=== PATIENT | female | born 1955 | race African-American/Black ===

== ENCOUNTER 2017-10-25 23:39 | Inpatient (IN) ==
[2017-10-26 00:29] LABS: Basophils # 0.1 K/mcL (0.0-0.2); Basophils % 1.3 %; Eosinophils # 0.4 K/mcL (0.0-0.6); Eosinophils % 6.3 %; Hematocrit 37.1 % (35.3-44.9); Hemoglobin 11.5 g/dL (11.5-15.4); Immature Granulocytes % 0.3 % (0-4); Lymphocytes # 1.4 K/mcL (0.6-4.6); Lymphocytes % 20.8 %; Mean Corpuscular Hemoglobin 30.6 pg (28.0-33.3); Mean Corpuscular Volume 98.7 fL (83.0-100.0); Mean Platelet Volume 9.7 fL (9.4-12.4); Monocytes # 0.8 K/mcL (0.0-1.3); Neutrophils # 4.2 K/mcL (1.6-8.9); Platelet Count 310 K/mcL (140-400); Red Blood Count 3.76 M/mcL (3.82-4.97); Red Cell Distribution Width 12.3 % (11.5-14.5); Segmented Neutrophils % 60.3 %
[2017-10-26 00:42] LABS: Calcium 10.3 mg/dL (8.6-10.8); Potassium 4.2 mEq/L (3.5-4.5)
--- NOTE | 2017-10-26 01:43 | Emergency Department Note ---
Disposition Clinical Impression: Dermatomyositis Disposition: Admitted As Inpatient Condition: Good Time of Disposition: 05:15 Extremity Problem HPI - General Chief complaint: ED Extremity Problem,Nontraumatic Stated complaint: "Bilat Leg Pain/Toe Numbness" Time Seen by Provider: 10/26/17 01:20 Source: patient, EMS Limitations: no limitations Nursing Notes Reviewed: Yes Vital Signs Reviewed: Yes - History of Present Illness HPI Narrative: Mrs. Boyce, 62-year-old female, presents from home for evaluation of bilateral lower extremity weakness. Onset this evening at 10:30 after she had laid down. Patient ambulated to baseline with a walker but she was unable to do so after awakening. Patient has a history of dermatomyositis diagnosed approximate 6 years with approximately 5 flares since. Patient notes this feels exactly the same as prior flares. One month ago, she finished a long prednisone taper. She follows with Dr. Leon. She has no other complaints or concerns at this time. At baseline, patient ambulance with walker. ROS: Positive: As above Negative: Fever, chills, nausea, vomiting, chest pains, palpitations, numbness or tingling of her genital/perianal region, incontinence of bowel or bladder, dysuria, changes in bowel habits, decreased sensation, pain in her lower extremities, history of trauma to her back or lower extremities. Pain Scale: 7 - Related Data Home Medications Medication Instructions Recorded Confirmed Amitriptyline [Elavil] 25 mg PO HS 08/27/15 09/26/16 Budesonide/Formoterol 80/4.5 2 puff IH BID PRN #0 08/27/15 09/26/16 [Symbicort 80/4.5] LORazepam [Ativan] 2 mg PO Q6H PRN #0 08/27/15 09/26/16 Lisinopril [Zestril] 20 mg PO DAILY #0 08/27/15 09/26/16 Metoprolol [Lopressor] 100 mg PO BID #0 08/27/15 09/26/16 Mupirocin [Bactroban Oint] 1 appl NS TID 08/27/15 09/26/16 NIFEdipine [Nifedipine ER] 90 mg PO BID #0 08/27/15 09/26/16 Topiramate [Topamax] 25 mg PO HS 08/27/15 09/26/16 Sitagliptin Phos/Metformin HCl 1 each PO BID 02/07/16 09/26/16 [Janumet 50-1,000 mg Tablet] Ergocalciferol (VITAMIN D2) 50,000 unit PO QWEEK 08/16/16 09/26/16 [Vitamin D2 (50,000 UNIT)] Acyclovir [Zovirax] 1 appl TP AD 08/17/16 09/26/16 HYDROcodone/Acet 10/325 mg [[place] 1 tab PO Q6HR PRN 08/17/16 09/26/16 10-325 mg] Lidocaine 1 appl TP AD 08/17/16 09/26/16 Pregabalin [Lyrica] 50 mg PO TID 09/26/16 09/26/16 predniSONE [PredniSONE] 10 mg PO DAILY 09/26/16 09/26/16 Previous Rx's Medication Instructions Recorded Doxycycline 100 mg PO BID 7 Days capsule 03/26/17 PredniSONE [Emmy] 5 mg PO DAILY #7 tablet. 07/02/17 Allergies Allergy/AdvReac Type Severity Reaction Status Date / Time No Known Allergies Allergy Verified 10/26/17 00:02 All systems ED: reviewed and negative except as stated. Review of Systems: As Per HPI Past Medical History - Past Medical History Medical history: Reports: arthritis, cardiomyopathy, COPD, diabetes, GERD, hyperlipidemia, hypertension, osteoporosis, peripheral artery disease, pulmonary embolus, other Surgical history: Reports: cholecystectomy, hysterectomy, knee replacement, orthopedic, other (Left hand surgery.), pacemaker/AICD, sinus surgery ( Tonsillectomy adenoidectomy. 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 HEENT: No facial asymmetry. Head is normocephalic and atraumatic. Oral mucosa moist. Trachea midline. Cardiovascular: Heart regular rate and rhythm without clicks, rubs, gallops, or murmurs. No JVD. PMI nondisplaced. Posterior tibial pulses 2/4 and equal. Respiratory: Symmetric chest rise with good respiratory effort. Bilateral breath sounds are clear without wheezing, crackles, or rhonchi. Abdomen: Bowel sounds present normoactive x-4 quadrants. Abdomen is soft, nondistended, and nontender. No organomegaly noted. Musculoskeletal: Strength 4/5 in left lower extremity. Strength 3/5 in right lower extremity. Spontaneously moving upper extremities. Neuro: Sensation light touch intact in bilateral lower extremities. Psych: Patient's affect is appropriate for situation. - General Limitations: no limitations General appearance: alert, in no apparent distress Course Course Narrative: Patient with a history of dermatomyositis presents from home for evaluation of a layer of the same. She has had this previously and this feels identical. She has no other complaints. Physical exam demonstrates lower extremity weakness most prominent in the right lower extremity. At baseline, patient ambulates with a walker however she is unable to do so at this time. She is otherwise comfortable. We will provide an initial 80 mg dose of prednisone. Patient is agreeable to admission for continued evaluation and management. Patient is an elevation in ESR consistent with her history, presentation, and my physical exam. Discussed the patient with the admitting hospitalist, Dr. Murrell, who agrees to accept the patient for continued evaluation and management. Vital Signs Temperature 97.9 F 10/25/17 23:57 Pulse Rate 96 10/25/17 23:57 Respiratory Rate 20 10/25/17 23:57 Blood Pressure 144/85 10/25/17 23:57 O2 Sat by Pulse Oximetry 94 10/25/17 23:57 Temperature 98.7 F 10/26/17 04:13 Pulse Rate 87 10/26/17 04:13 Respiratory Rate 16 10/26/17 04:13 Blood Pressure 152/84 10/26/17 04:13 O2 Sat by Pulse Oximetry 99 10/26/17 04:13 Oxygen Delivery Oxygen Delivery Room Air Extremity Problem, Nontraumati - Lab Data Result diagrams: 10/26/17 00:20 10/26/17 00:20 Lab Results 10/26/17 10/26/17 10/26/17 Range/Units 00:20 00:20 00:20 WBC 6.9 (4.3-11.1) K/mcL RBC 3.76 L (3.82-4.97) M/mcL Hgb 11.5 (11.5-15.4) g/dL Hct 37.1 (35.3-44.9) % MCV 98.7 (83.0-100.0) fL MCH 30.6 (28.0-33.3) pg MCHC 31.0 L (31.6-35.5) g/dL RDW 12.3 (11.5-14.5) % Plt Count 310 (140-400) K/mcL MPV 9.7 (9.4-12.4) fL Immature Gran % 0.3 (0-4) % Seg Neutrophils % 60.3 % Lymphocytes % 20.8 % Monocytes % 11.0 % Eosinophils % 6.3 % Basophils % 1.3 % Neutrophils # 4.2 (1.6-8.9) K/mcL Lymphocytes # 1.4 (0.6-4.6) K/mcL Monocytes # 0.8 (0.0-1.3) K/mcL Eosinophils # 0.4 (0.0-0.6) K/mcL Basophils # 0.1 (0.0-0.2) K/mcL ESR 68 H (0-15) mm/hr Sodium 141 (136-145) mEq/L Potassium 4.2 (3.5-4.5) mEq/L Chloride 111 H (98-109) mEq/L Carbon Dioxide 21 (19-29) mEq/L BUN 34 H (7-20) mg/dL Creatinine 1.19 H (0.57-1.11) mg/dL Est GFR ( Amer) 56 L (> 60) Est GFR (Non-Af Amer) 46 L (> 60) BUN/Creatinine Ratio 29 H (6-26) Glucose 122 H (70-99) mg/dL Calculated Osmolality 301 H (280-300) Calcium 10.3 (8.6-10.8) mg/dL Creatine Kinase 61 (29-168) Units/L Attestation Statement - Attestation Attestation: I, Giacomo Baumann MD, personally evaluated this patient and discussed their management with the resident physician. I reviewed the resident's note and agree with the documented findings, medical decision making, and plan of care. 62-year-old female presents to the emergency department complaining that she awoke at 10 PM with weakness in both legs and was unable to use them. Patient states that she has a history of dermatomyositis and has flareups with similar episodes previously. She denies any fall or injury. She does have some pain in her hip areas. No fever. No other symptoms or complaints. Patient states that she just cannot use her legs and is unable to walk. On examination patient is a well-developed well-nourished female in no acute distress. She is alert and oriented 3. There is no cyanosis or diaphoresis. Breath sounds are clear and equal bilaterally. Heart regular rate and rhythm with a grade 3/6 systolic murmur. Abdomen soft and nontender with normal bowel sounds. Moderate weakness and left lower extremity and marked weakness in the right lower extremity. Labs reviewed. Sedimentation rate 68. Otherwise unremarkable. The hospitalist, Dr. Higgins, was consulted and accepted admission of the patient.
[2017-10-26] MEDS ORDERED: predniSONE 20 MG TABLET PO ONE (02:55)
[2017-10-26] MEDS ORDERED: 0.9 % Sodium Chloride 500 ML IVC ONE (02:56)
[2017-10-26] MEDS ORDERED: Naloxone 0.4 MG/ML INJ IVP PRN (04:01)
[2017-10-26] MEDS ORDERED: Ondansetron 4 MG/2 ML VIAL IVP PRN (04:01)
[2017-10-26] MEDS ORDERED: Acetaminophen 325 MG TABLET PO PRN (04:01)
--- NOTE | 2017-10-26 04:01 | Internal Med History&Physical ---
Date of Encounter: 10/26/17 Time of Encounter: 03:45 Assessment and Plan (1) Dermatomyositis Current visit: Yes Status: Acute Acute flareup of dermatomyositis - causing weakness in both lower extremities Prednisone 80 mg given in ED, IV Solu-Medrol, IV fluids Continue home dose of Lyrica CT head - pending EKG - sinus rhythm with RBBB Troponin - pending ESR - 68 Rheumatology consult - patient follows with Dr. Leon Cardiac telemetry, lives in a.m., monitor closely (2) COPD (chronic obstructive pulmonary disease) Current visit: Yes Status: Chronic COPD, stable - not in exacerbation Continue Symbicort, O2 via NC, DuoNeb breathing treatment PRN Qualifiers: COPD type: unspecified COPD Qualified Code(s): J44.9 - Chronic obstructive pulmonary disease, unspecified (3) Diabetes mellitus Current visit: Yes Status: Chronic Type 2 diabetes mellitus, [id number], hyperglycemia Continue insulin sliding scale, glucose checks Patient is on Sitagliptin/Metformin at home Qualifiers: Diabetes mellitus type: type 2 Diabetes mellitus complication status: with unspecified complications Diabetes mellitus manager long term care insulin use: unspecified prison insulin use status Qualified Code(s): E11.8 - Type 2 diabetes mellitus with unspecified complications (4) Essential hypertension Current visit: Yes Status: Chronic Essential hypertension, controlled, monitor Continue home dose of Nifedipine, Lopressor, Lisinopril (5) Anxiety and depression Current visit: Yes Status: Chronic Stable, continue home dose of Elavil (6) DVT prophylaxis Current visit: Yes Status: Resolved Heparin subcutaneous Internal Medicine - H&P: HPI Chief complaint: Bilateral leg weakness Admitted From: Emergency Dept Plans for Post Hospital Care: Home History of present illness: Ms. Boyce is a 62 year old female with past medical history of dermatomyositis , arthritis, COPD, GERD, diabetes, hyperlipidemia, hypertension, osteoporosis, PE, peripheral artery disease, status post pacemaker/AICD and cardiomyopathy. Patient presents to the ED with complaints of bilateral lower leg weakness and numbness. Examined in the room. Patient is awake and alert. Not in any distress. Able to provide all history. No family members at bedside. Patient states that around 10 PM last night she developed bilateral leg weakness. She states she had difficulty standing up. She normally uses a walker at home. Patient states weakness in right leg is worse than the left side. She states she has intermittent flareups of dermatomyositis, and this feels like another flareup. Patient had been on prednisone for more than one year, and was tapered off recently. Patient denies weakness in upper extremities. Denies dizziness or headache. No blurred vision or loss of consciousness. Denies chest pain or shortness of breath or palpitation. Denies abdominal pain or vomiting or diarrhea or fever. No other associated symptoms. No other acute complaints. Initial workup in the ED reveals elevated ESR. Patient likely has a flareup of dermatomyositis. She will need high-dose steroids at this time. Prednisone has been given in the ED. Patient thinks that her weakness seems to be improving already. Patient may need IV Solu-Medrol as well if symptoms do not improve. Patient has been explained about her condition and plan of care in detail. She understood and agreed. No unanswered questions. CODE STATUS full code. Past Med Surg Social Fam HX - Past Medical History Medical history: arthritis, cardiomyopathy, COPD, diabetes, GERD, hyperlipidemia , hypertension, osteoporosis, peripheral artery disease, pulmonary embolus, other Psychiatric history: anxiety, bipolar, depression, panic disorder, other - Past Surgical History Surgical History: cholecystectomy, hysterectomy, knee replacement, orthopedic, other (Left hand surgery.), pacemaker/AICD, sinus surgery (Tonsillectomy adenoidectomy. Uvula-ectomy.), other (Pericardial window.) - Social History Smoking Status: Never smoker Smokeless Tobacco Status: No Alcohol use: none Drug use: none - Family History Father Living Status: Hx Family Cardiac Disorders: Yes (NH) Hx Family Endocrine Disorder: Yes (DM) Mother Living Status: Still Living Hx Family Endocrine Disorder: Yes (DM) Internal Medicine - H&P: Meds Amitriptyline [Elavil] 25 mg PO HS 08/27/15 [History] Budesonide/Formoterol 80/4.5 [Symbicort 80/4.5] 2 puff IH BID PRN #0 08/27/15 [ History] LORazepam [Ativan] 2 mg PO Q6H PRN #0 08/27/15 [History] Lisinopril [Zestril] 20 mg PO DAILY #0 08/27/15 [History] Metoprolol [Lopressor] 100 mg PO BID #0 08/27/15 [History] Mupirocin [Bactroban Oint] 1 appl NS TID 08/27/15 [History] NIFEdipine [Nifedipine ER] 90 mg PO BID #0 08/27/15 [History] Topiramate [Topamax] 25 mg PO HS 08/27/15 [History] Sitagliptin Phos/Metformin HCl [Janumet 50-1,000 mg Tablet] 1 each PO BID [History] Ergocalciferol (VITAMIN D2) [Vitamin D2 (50,000 UNIT)] 50,000 unit PO QWEEK [History] Acyclovir [Zovirax] 1 appl TP AD 08/17/16 [History] HYDROcodone/Acet 10/325 mg [[place] 10-325 mg] 1 tab PO Q6HR PRN 08/17/16 [History ] Lidocaine 1 appl TP AD 08/17/16 [History] Pregabalin [Lyrica] 50 mg PO TID 09/26/16 [History] predniSONE [PredniSONE] 10 mg PO DAILY 09/26/16 [History] Doxycycline 100 mg PO BID 7 Days capsule 03/26/17 [Rx] PredniSONE [Emmy] 5 mg PO DAILY #7 tablet. 07/02/17 [Rx] 3 Allergy/AdvReac Type Severity Reaction Status Date / Time No Known Allergies Allergy Verified 10/26/17 00:02 All Systems PM: A 10-system review of systems was performed and is negative for pertinent findings except as documented above in the HPI. - Constitutional Constitutional: fatigue, weakness, no fever(s) - EENT Eyes: no blurry vision, no loss of vision, no photophobia - Cardiovascular Cardiovascular ROS IM: no chest pain, no diaphoresis, no dyspnea, no dyspnea on exertion, no edema, no lightheadedness, no orthopnea, no palpitations, no syncope - Respiratory Respiratory: no cough, no dyspnea, no dyspnea on exertion, no wheezing, no chest congestion - Gastrointestinal Gastrointestinal: no abdominal pain, no bloating, no cramping, no diarrhea, no hematochezia, no loose stools, no nausea, no vomiting - Genitourinary Genitourinary: no dysuria - Musculoskeletal Musculoskeletal ROS IM: muscle weakness (Both lower legs), no back pain - Neurological Neurological ROS: abnormal gait (Difficulty ambulating), focal weakness ( Weakness and tingling and numbness over both lower legs, worse on the right side ), numbness, tingling, no abnormal speech, no confusion, no convulsions, no dizziness, no loss of vision - Constitutional Vitals: Temp Pulse Resp BP Pulse Ox 97.9 F 92 16 130/79 98 10/25/17 23:57 10/26/17 02:50 10/26/17 03:25 10/26/17 03:25 10/26/17 02:50 General appearance: Present: cooperative, A&O X 3, pleasant, no acute distress, answers questions appropriately - Head Head exam: Present: atraumatic - Eye Eye exam: Present: EOMI - ENT ENT exam: Present: mucous membranes dry - Respiratory Respiratory exam: Present: CTAB. Absent: rales, respiratory distress, stridor, wheezes, tachypnea - Cardiovascular Cardiovascular exam: Present: RRR, +S1, +S2, systolic murmur - GI/Abdominal GI/Abdominal exam: Present: soft. Absent: distended, firm, guarding, tenderness - Extremities Exam Extremities exam: Present: pedal edema (Bilateral lower leg 1+ pitting edema), radial pulses palpable and symmetrical. Absent: calf tenderness, cyanotic - Neurological Exam Neurological exam: Present: alert, CN II-XII intact, oriented X3. Absent: pronater drift, facial droop, speech deficit Additional comments: Awake and alert and oriented 3. Able to verbalize well and follows commands. Strength in both upper extremity 5/5. Strength in left lower and right lower extremities 3/5. Internal Med - H&P Results - Labs CBC & Chem 7: 10/26/17 00:20 10/26/17 00:20
[2017-10-26] MEDS ORDERED: D5% in Water 1,000 ML IVC PRN (04:08)
[2017-10-26] MEDS ORDERED: *HR* Dextrose 50 % in Water (Syg) 50 ML SYRINGE IVP PRN (04:08)
[2017-10-26] MEDS ORDERED: Dextrose Gel 15 GM PO PRN ×2 (04:08)
[2017-10-26] MEDS: *HR* Heparin 5,000 UNIT/ML VIAL SQ SCH ×2 (05:43→17:26)
[2017-10-26 05:44] LABS: Bilirubin,Urine Negative (Negative); Blood,Urine Negative (Negative); Clarity,Urine Cloudy (Clear); Color,Urine Yellow (Yellow); Glucose,Urine (UA) Normal (Normal); Ketones,Urine Negative (Negative); Leukocyte Esterase,Urine Moderate (Negative); Nitrite,Urine Negative (Negative); PH,Urine 6.5 pH Units (5.0-8.0); Protein,Urine Negative (Neg-Trace); Specific Gravity,Urine 1.015 (1.010-1.025); Urobilinogen,Urine Normal (Normal)
[2017-10-26 05:44] LABS: INR 1.1; Prothrombin Time 12.4 Seconds (9.4-12.1)
[2017-10-26 05:47] LABS: Bacteria,Urine Many per hpf (None-Few); Hyaline Casts,Urine None Seen per lpf (None-Few); Squamous Epithelial Cell,Urine Many per lpf (None-Few)
[2017-10-26] MEDS ORDERED: Ipratropium/Albuterol Neb 3 ML IH PRN (05:49)
[2017-10-26 05:57] LABS: Chol/HDL Ratio 6.9 (0-4.9); Magnesium 1.7 mg/dL (1.6-2.6)
[2017-10-26 05:58] LABS: Hemoglobin A1C 5.5 %
[2017-10-26] MEDS: Lidocaine OINT 35.44 GM TUBE TP SCH (06:25)
[2017-10-26] MEDS ORDERED: Aspirin 81 MG TAB.CHEW PO SCH (09:00)
[2017-10-26] MEDS: NIFEdipine XL (24 HR) 30 MG TAB.ER.24 PO SCH ×2 (09:46→23:43)
[2017-10-26] MEDS: Lisinopril 20 MG TABLET PO SCH (09:46)
[2017-10-26] MEDS: Metoprolol 100 MG TABLET PO SCH ×2 (09:46→23:43)
[2017-10-26] MEDS: Insulin LISPRO 300 UNITS/3 ML VIAL SQ SCH ×4 (09:46→23:44)
[2017-10-26] MEDS: Pregabalin 50 MG CAPSULE PO SCH ×3 (09:46→23:42)
[2017-10-26] MEDS: 0.9 % Sodium Chloride 1,000 ML IVC SCH (09:47)
[2017-10-26] MEDS: Budesonide/Formoterol 80/4.5 MDI IH SCH ×2 (10:56→20:24)
[2017-10-26] MEDS: *HR* Morphine 2 MG/ML SYRINGE IVP PRN (17:31)
--- NOTE | 2017-10-26 19:38 | Internal Med Progress Note ---
Date of Encounter: 10/26/17 Time of Encounter: 19:00 - Assessment and plan (1) Lower extremity weakness Current Visit: Yes Status: Acute Qualifiers: Laterality: bilateral Qualified Code(s): R29.898 - Other symptoms and signs involving the musculoskeletal system Code(s): R29.898 - Other symptoms and signs involving the musculoskeletal system SNOMED Code(s): 831120117 (2) Dermatomyositis Current Visit: Yes Status: Acute Code(s): M33.90 - Dermatopolymyositis, unspecified, organ involvement unspecified SNOMED Code(s): 448396024 (3) Diabetes mellitus Current Visit: Yes Status: Chronic Qualifiers: Diabetes mellitus type: type 2 Diabetes mellitus complication status: with unspecified complications Diabetes mellitus custodial insulin use: unspecified custodial insulin use status Qualified Code(s): E11.8 - Type 2 diabetes mellitus with unspecified complications Code(s): E11.9 - Type 2 diabetes mellitus without complications SNOMED Code(s) : 92430767 (4) Essential hypertension Current Visit: Yes Status: Chronic Code(s): I10 - Essential (primary) hypertension SNOMED Code(s): 84606190 - Time Spent With Patient Case Discussed with Dr Amaya as will as Dr Tavera.Dr Tavera recommended to add another dose Solumedrol , Will check X ray [place] spine , increase insulin sliding scale , PT/OT , recheck CK, ESR at AM , may consider MRI with contrast brain and [place] spine . neurology recommended to start steroids for now and then he will come tomorrow and evaluate, based on his evaluation he will order further imaging study.with her significant risk factors will check carotid Doppler, add aspirin 325, may consider MRI brain next morning 25 - 35 minutes - Subjective Interval history: patient has some improvement of her extremities compared to yesterday. No back pain and no headache no visual changes - Constitutional Vitals: Temp Pulse Resp BP Pulse Ox 98.8 F 89 18 147/87 98 10/26/17 19:08 10/26/17 19:08 10/26/17 19:08 10/26/17 19:08 10/26/17 19:08 General appearance: Present: cooperative, A&O X 3, pleasant, no acute distress, answers questions appropriately - Head Head exam: Present: atraumatic, normocephalic - Neck Neck exam general surgery: Present: supple, trachea midline. Absent: lymphadenopathy - Respiratory Respiratory exam: Present: CTAB. Absent: accessory muscle use, rales, rhonchi, wheezes - Cardiovascular Cardiovascular exam: Present: RRR, +S1, +S2. Absent: diastolic murmur, gallop, rubs, systolic murmur - GI/Abdominal GI/Abdominal exam: Present: normal bowel sounds, soft, no peritoneal signs. Absent: distended, tenderness - Extremities Exam Extremities exam: Present: warm, radial pulses palpable and symmetrical. Absent : calf tenderness, cyanotic, pedal edema - Neurological Exam Neurological exam: Present: alert, CN II-XII intact. 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 on the solar power installer he stated herof 5 lower extremities Internal Medicine: Result - Labs CBC & Chem 7: 10/26/17 00:20 10/26/17 00:20 Labs: Cardiac Enzymes 10/26/17 10/26/17 10/26/17 Range/Units 05:31 11:51 17:13 Troponin I 0.01 0.00 0.00 (0-0.03) ng/mL Urine 10/26/17 Range/Units 05:20 Urine Color Yellow (Yellow) Urine Clarity Cloudy A (Clear) Urine pH 6.5 (5.0-8.0) pH Units Ur Specific [place] 1.015 (1.010-1.025) Urine Protein Negative (Neg-Trace) mg/dL Urine Glucose (UA) Normal (Normal) mg/dL - ABG Interpretation ABG results: PT/INR, D-dimer PT 12.4 Seconds (9.4-12.1) H 10/26/17 05:31 - Impressions Impressions Head CT 10/26/17 05:23 IMPRESSION: Similar mild chronic ischemic changes. No definite CT evidence for acute intracranial abnormality. Given patient's clinical history, if there remains concern for acute stroke, MRI is suggested for further evaluation due to its increased sensitivity for acute stroke. D/ / Kenyon Earl / Kenyon Earl Interpreting Provider: Kenyon Earl Echocardiogram 10/26/17 05:41 Impressions: Technically sub-optimal due to body habitus. Normal sinus rhythm. LVEF 65%. Mild aortic stenosis. Trace mitral regurgitation. Trace tricuspid regurgitation. . Left Ventricular Wall Motion: Rest Echo Findings All wall segments showed normal motion. Findings: Study Quality * Technically sub-optimal due to body habitus. ECG Findings * Normal sinus rhythm. Left Ventricle * LVEF 65%. * Mild concentric left ventricular hypertrophy. * There is no LV thrombus. Right Ventricle * Normal right ventricular structure and function. Left Atrium * Normal left atrial size. Right Atrium * Normal right atrial size. Interatrial Septum * No evidence of PFO by color Doppler. Aortic Valve * Trileaflet aortic valve. * Mild aortic stenosis. * Mildly sclerotic aortic valve leaflets. * Mildly thickened aortic valve leaflets. Mitral Valve * Normal mitral valve structure and function. * Mildly calcified mitral valve leaflets. * Trace mitral regurgitation. * Leaflets are restricted. Tricuspid Valve * Normal tricuspid valve structure and function. * Trace tricuspid regurgitation. Pulmonic Valve * Pulmonic valve not well visualized. Aorta * Normally sized aortic root. Pericardium * The pericardium appears normal. Consult Discharge Plan - Plan Referrals: Gaurav Thomas MD [Primary Care Provider] -
[2017-10-26] MEDS ORDERED: Insulin LISPRO 300 UNITS/3 ML VIAL SQ SCH (21:00)
[2017-10-26] MEDS ORDERED: *HR* LORazepam 1 MG TABLET PO ONE (22:41)
[2017-10-26] MEDS: Insulin DETEMIR 100 UNIT/ML X5UNITS SQ SCH (23:41)
[2017-10-27] MEDS: *HR* Morphine 2 MG/ML SYRINGE IVP PRN (00:25)
[2017-10-27] MEDS: Topiramate 25 MG TABLET PO SCH ×2 (00:26→20:52)
[2017-10-27] MEDS: Insulin LISPRO 300 UNITS/3 ML VIAL SQ SCH ×6 (00:38→22:42)
[2017-10-27] MEDS: 0.9 % Sodium Chloride 1,000 ML IVC SCH (00:44)
[2017-10-27 05:44] LABS: Basophils % 0.1 %; Hematocrit 39.9 % (35.3-44.9); Hemoglobin 12.7 g/dL (11.5-15.4); Immature Granulocytes % 0.4 % (0-4); Lymphocytes # 0.5 K/mcL (0.6-4.6); Lymphocytes % 6.5 %; Mean Corpuscular HGB Conc 31.8 g/dL (31.6-35.5); Mean Corpuscular Hemoglobin 30.2 pg (28.0-33.3); Monocytes # 0.1 K/mcL (0.0-1.3); Monocytes % 1.5 %; Neutrophils # 7.2 K/mcL (1.6-8.9); Platelet Count 314 K/mcL (140-400); Red Cell Distribution Width 11.9 % (11.5-14.5); Segmented Neutrophils % 91.5 %
[2017-10-27] MEDS: *HR* Heparin 5,000 UNIT/ML VIAL SQ SCH ×2 (05:45→16:27)
[2017-10-27] MEDS: Lidocaine OINT 35.44 GM TUBE TP SCH (05:45)
[2017-10-27 06:02] LABS: BUN/Creatinine Ratio 29 (6-26); Blood Urea Nitrogen 27 mg/dL (7-20); Calcium 10.1 mg/dL (8.6-10.8); Carbon Dioxide 21 mEq/L (19-29); Chloride 109 mEq/L (98-109); Glucose 234 mg/dL (70-99); Osmolality,Calculated 301 (280-300); Sodium 139 mEq/L (136-145); eGFR For African Americans > 60 (> 60); eGFR For Non-African Americans > 60 (> 60)
[2017-10-27 06:05] LABS: Potassium 4.3 mEq/L (3.5-4.5)
[2017-10-27] MEDS: Budesonide/Formoterol 80/4.5 MDI IH SCH ×2 (08:12→22:10)
--- NOTE | 2017-10-27 08:30 | Rheumatology Consult Note ---
<Toy Breen - Last Filed: 10/27/17 09:46> Date of Encounter: 10/27/17 Time of Encounter: 08:28 Rheumatology Assess and Plan (1) Lower extremity weakness Current Visit: Yes Status: Acute Hx of DM, Jo1 positive, CK nl, ESR elevated 68. Seems to have returned to baseline. Sxs Unlikely to be secondary to infectious process or spinal cord compression since symptoms have resolved. Would not expect true DM flair to have resolved so quickly from steroids. TIA still on the differential. Neurology and PT/OT to evaluate. Expect a large component of her symptoms to be due to deconditioning as patient does not ambulate much at home. Would likely benefit from PT/OT. Qualifiers: Laterality: bilateral Qualified Code(s): R29.898 - Other symptoms and signs involving the musculoskeletal system (2) Antisynthetase syndrome Current Visit: Yes Status: Acute Hx of DM c ILD, Raynauds, + Jo1 ab. overall well controlled on current regimen. no need for further steroids at this time. Continue home dose of cellcept 2.5g (1.5g in the AM, 1g in the PM) ESR was elevated at 68. However question of if this is related to her poor dentition and untreated sleep apnea rather than a sign of DM flair. Rheumatology HPI Consult date: 10/26/17 Requesting physician: Mark Schuler Consult reason: Dermatomyositis management Chief complaint: BLE weakness History of present illness: Ms. Boyce is a 62 year old female c PMhx of Dermatomyositis reported to the ED c/o increased BLE weakness. At baseline patient requires a walker for ambulation. Patient reports taking a nap and waking up at 10pm. Upon waking she reports she could not move her legs the way she normally can. Patient denies pain in her legs at that time. Patient reports she has had pain in her low back and R hip over the last several months, but had no new onset of pain with this onset of weakness. Patient reports last flair was one year ago. Patient denies recent Fever, chills, cough/cold symptoms, dysphagia, N/V, abd pn, Chest pain, SOB, palpitations, numbness/tingling, bowel or bladder incontinence, recent trauma. Per [facility] records patient is on Mycophenolate Mofetil 2.5 grams a day. Patient completed prednisone taper in August of this year. Pt currently not on cellcept here in the hospital. patient reports taking her medication at home as prescribed. Patient was given 80mg Prednisone in the ED and 2 doses of 50mg Solumedrol since admission. CT head showed "similar mild chronic ischemic changes. No definite CT evidence for acute intracranial abnormality." Pt's ESR was elevated to 68 on admission. Neurology consult pending. Past Med Surg Social Fam HX - Past Medical History Medical history: arthritis, cardiomyopathy, COPD, diabetes, GERD, hyperlipidemia , hypertension, osteoporosis, peripheral artery disease, pulmonary embolus, other Psychiatric history: anxiety, bipolar, depression, panic disorder, other - Past Surgical History Surgical History: cholecystectomy, hysterectomy, knee replacement, orthopedic, other (Left hand surgery.), pacemaker/AICD, sinus surgery (Tonsillectomy adenoidectomy. Uvula-ectomy.), other (Pericardial window.) - Social History Smoking Status: Never smoker Smokeless Tobacco Status: No Alcohol use: none Drug use: none - Family History Father Living Status: Hx Family Cardiac Disorders: Yes ([place]) Hx Family Endocrine Disorder: Yes ([place]) Mother Living Status: Still Living Hx Family Endocrine Disorder: Yes (DM) Medications and Allergies Amitriptyline [Elavil] 25 mg PO HS 08/27/15 [History] Budesonide/Formoterol 80/4.5 [Symbicort 80/4.5] 2 puff IH BID PRN #0 08/27/15 [ History] LORazepam [Ativan] 2 mg PO Q6H PRN #0 08/27/15 [History] Lisinopril [Zestril] 20 mg PO DAILY #0 08/27/15 [History] Metoprolol [Lopressor] 100 mg PO BID #0 08/27/15 [History] Mupirocin [Bactroban Oint] 1 appl NS MOWEFR 08/27/15 [History] NIFEdipine [Nifedipine ER] 90 mg PO BID #0 08/27/15 [History] Topiramate [Topamax] 25 mg PO HS 08/27/15 [History] Sitagliptin Phos/Metformin HCl [Janumet 50-1,000 mg Tablet] 1 tab PO BID PRN 08/16 [History] Ergocalciferol (VITAMIN D2) [Vitamin D2 (50,000 UNIT)] 50,000 unit PO QWEEK [History] Acyclovir [Zovirax] 1 appl TP AD 08/17/16 [History] HYDROcodone/Acet 10/325 mg [[place] 10-325 mg] 1 tab PO Q6HR PRN 08/17/16 [History ] Lidocaine 1 appl TP AD 08/17/16 [History] Pregabalin [Lyrica] 50 mg PO TID 09/26/16 [History] PredniSONE [Emmy] 5 mg PO DAILY #7 tablet. 07/02/17 [Rx] Albuterol Sulfate [Albuterol Inhaler] 1 - 2 puff IH Q6H PRN 10/26/17 [History] Esomeprazole Magnesium [Nexium] 40 mg PO DAILY 10/26/17 [History] Glimepiride [Amaryl] 4 mg PO DAILY 10/26/17 [History] 3 Allergy/AdvReac Type Severity Reaction Status Date / Time No Known Allergies Allergy Verified 10/26/17 00:02 All Systems Review: A 10-system review of systems was performed and is negative for pertinent findings except as documented above in the HPI. Rheumatology Exam Vital Signs, Last 4 Hours Temp Pulse Resp BP Pulse Ox 10/27/17 06:49 98.3 F 85 18 155/87 97 10/27/17 04:33 98.3 F 86 16 146/81 98 Exam: General: Pleasant, AxO x3, in NAD Eyes: PERRL, Sclera nonicteric HENT: NC/AT, MMM, no ulcerations noticed in antony or naso phyarynx, poor dentition. Heme/Lymph: No cervical lymphadenopathy noted, no bruising or peticiahe. Cardiac: 3/6 Systolic murmur, RRR, No edema. Lungs: CTA B/L, normal respiratory effort Abdomen: SNT, +BS, no hepatosplenomegally Skin: Warm and Dry, no rash/skin findings Neuro: CN II-XII intact and symmetric, Strength 4+/5 in Deltoids, 5/5 in rest of upper extremities. Strength 4/5 BLE through out. Reflexes symmetric through out 2+ BR, 1+ Patellar, 2+ Achilles. Musculoskeletal: Reduced range of motion in b/l hips, muscles nontender. Rheumatology Results 10/27/17 05:29 10/27/17 05:29 All other labs normal. Consult Discharge Plan - Plan Referrals: Gaurav Thomas MD [Primary Care Provider] - <TiffanieLuke myers - Last Filed: 10/27/17 11:34> Date of Encounter: 10/27/17 Rheumatology HPI History of present illness: Ms. Boyce is a 62 year old female All Systems Review: A 10-system review of systems was performed and is negative for pertinent findings except as documented above in the HPI. Rheumatology Exam Vital Signs, Last 4 Hours Temp Pulse Resp BP Pulse Ox 10/27/17 10:57 98.3 F 86 18 148/85 93 10/27/17 08:12 20 98 Rheumatology Results 10/27/17 05:29 10/27/17 05:29 All other labs normal. - Attending Attestation I examined this patient and my medical decision making was reviewed with the resident physician. I agree with the documented findings, disposition and treatment as described with these exceptions. 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 Patient reports being in her normal state of health until waking up from a nap with sudden weakness in her legs. She went to the ED, was given corticosteroids and reports that over time has symptomatically came back to normal. On exam, has a systolic murmur. No cutaneous rash. No synovitis noted. Poor dentition. Muscle strength in shoulder girdle ~4/5, hip flexors ~4/5. She is able to resist strength and gravity. She does have some atrophy noted of her muscles. CK normal, ESR elevated. Overall, Katelyn looks to be about back to her normal state of health as I have seen her. She has had longstanding inflammatory myositis but clinically has improved in the last year but she is markedly deconditioned and I suspect that is a large component of her symptoms. No signs on history that there is a contributory infection now. I am not certain what brought about her sudden change in exam yesterday but it did not necessarily sound clinically like it was related to the inflammatory myositis. No problems swallowing, new or worsening shortness of breath. Agree with PT/OT porsha; she would really benefit from an at home exercise program to get her strength up. Would hold off on any additional steroids and continue mycophenolate mofetil 2.5 grams daily. Will follow-up with her in clinic.
--- NOTE | 2017-10-27 09:05 | Internal Med Progress Note ---
Date of Encounter: 10/27/17 Time of Encounter: 09:02 - Assessment and plan (1) Lower extremity weakness Current Visit: Yes Status: Acute Qualifiers: Laterality: bilateral Qualified Code(s): R29.898 - Other symptoms and signs involving the musculoskeletal system Code(s): R29.898 - Other symptoms and signs involving the musculoskeletal system SNOMED Code(s): 508497213 (2) Dermatomyositis Current Visit: Yes Status: Acute Code(s): M33.90 - Dermatopolymyositis, unspecified, organ involvement unspecified SNOMED Code(s): 750579303 (3) Diabetes mellitus Current Visit: Yes Status: Chronic Qualifiers: Diabetes mellitus type: type 2 Diabetes mellitus complication status: with unspecified complications Diabetes mellitus penitentiary insulin use: unspecified penitentiary insulin use status Qualified Code(s): E11.8 - Type 2 diabetes mellitus with unspecified complications Code(s): E11.9 - Type 2 diabetes mellitus without complications SNOMED Code(s) : 77754667 (4) Essential hypertension Current Visit: Yes Status: Chronic Code(s): I10 - Essential (primary) hypertension SNOMED Code(s): 22030711 - Time Spent With Patient Discussed with Dr. Sinai Mccoy, he stated based on Dr. Leon recommendation no need for more steroids for now, awaiting Neurology input. Close monitoring of patient condition. Physical therapy and occupational therapy to assess gait and home safety. May consider home health care on discharge. Up with assistant tennis professional as directed 25 - 35 minutes - Subjective Interval history: patient has marked improvement compared to yesterday. Patient stated now she can move her lower extremities, can sit at the edge of her bed. She feels she is very close to her baseline, patient was able to stand by herself was assistant tennis professional. Patient was able to sit on chair. - Constitutional Vitals: Temp Pulse Resp BP Pulse Ox 98.3 F 85 20 155/87 98 10/27/17 06:49 10/27/17 06:49 10/27/17 08:12 10/27/17 06:49 10/27/17 08:12 General appearance: Present: cooperative, pleasant, no acute distress, answers questions appropriately - Head Head exam: Present: atraumatic, normocephalic - Neck Neck exam general surgery: Present: supple, trachea midline. Absent: lymphadenopathy - Respiratory Respiratory exam: Present: decreased breath sounds. Absent: accessory muscle use, rales, rhonchi, wheezes - Cardiovascular Cardiovascular exam: Present: RRR, +S1, +S2. Absent: diastolic murmur, gallop, rubs, systolic murmur - GI/Abdominal GI/Abdominal exam: Present: normal bowel sounds, soft, no peritoneal signs. Absent: distended, tenderness - Neurological Exam Neurological exam: Present: CN II-XII intact, oriented X3. Absent: pronater drift, facial droop, speech deficit Additional comments: Marketed improvement of her weakness bilateral lower extremities now up to see out 02/02. Patient able to stand with Asst. Internal Medicine: Result - Labs CBC & Chem 7: 10/27/17 05:29 10/27/17 05:29 Labs: Short CBC 10/27/17 Range/Units 05:29 WBC 7.9 (4.3-11.1) K/mcL Hgb 12.7 (11.5-15.4) g/dL Hct 39.9 (35.3-44.9) % Plt Count 314 (140-400) K/mcL Neutrophils # 7.2 (1.6-8.9) K/mcL BMP 10/27/17 05:29 Sodium 139 Potassium 4.3 Chloride 109 Carbon Dioxide 21 BUN 27 H Creatinine 0.92 Glucose 234 H Calcium 10.1 Cardiac Enzymes 10/26/17 10/26/17 Range/Units 11:51 17:13 Troponin I 0.00 0.00 (0-0.03) ng/mL - ABG Interpretation ABG results: PT/INR, D-dimer PT 12.4 Seconds (9.4-12.1) H 10/26/17 05:31 - Impressions Impressions Echocardiogram 10/26/17 05:41 Impressions: Technically sub-optimal due to body habitus. Normal sinus rhythm. LVEF 65%. Mild aortic stenosis. Trace mitral regurgitation. Trace tricuspid regurgitation. . Left Ventricular Wall Motion: Rest Echo Findings All wall segments showed normal motion. Findings: Study Quality * Technically sub-optimal due to body habitus. ECG Findings * Normal sinus rhythm. Left Ventricle * LVEF 65%. * Mild concentric left ventricular hypertrophy. * There is no LV thrombus. Right Ventricle * Normal right ventricular structure and function. Left Atrium * Normal left atrial size. Right Atrium * Normal right atrial size. Interatrial Septum * No evidence of PFO by color Doppler. Aortic Valve * Trileaflet aortic valve. * Mild aortic stenosis. * Mildly sclerotic aortic valve leaflets. * Mildly thickened aortic valve leaflets. Mitral Valve * Normal mitral valve structure and function. * Mildly calcified mitral valve leaflets. * Trace mitral regurgitation. * Leaflets are restricted. Tricuspid Valve * Normal tricuspid valve structure and function. * Trace tricuspid regurgitation. Pulmonic Valve * Pulmonic valve not well visualized. Aorta * Normally sized aortic root. Pericardium * The pericardium appears normal. Consult Discharge Plan - Plan Referrals: Gaurav Thomas MD [Primary Care Provider] -
[2017-10-27] MEDS: Aspirin 81 MG TAB.CHEW PO SCH (10:19)
[2017-10-27] MEDS: NIFEdipine XL (24 HR) 30 MG TAB.ER.24 PO SCH ×2 (10:20→20:51)
[2017-10-27] MEDS: Metoprolol 100 MG TABLET PO SCH ×2 (10:20→20:51)
[2017-10-27] MEDS: Insulin DETEMIR 100 UNIT/ML X5UNITS SQ SCH ×2 (10:20→20:52)
[2017-10-27] MEDS: Pregabalin 50 MG CAPSULE PO SCH ×3 (10:20→20:52)
[2017-10-27] MEDS: Lisinopril 20 MG TABLET PO SCH (10:21)
--- NOTE | 2017-10-27 10:57 | Electrocardiograph Report ---
[address] [place], [place] [address] Test Date: 2017-10-26 Pat Name: Katelyn Boyce Department: 114 Room: [facility] Gender: F Roll Repairer: [id number] : 1955 Requested By: Mark Schuler Order Number: [id number] Reading MD: Kenny Davis MD Measurements Intervals G[place]ney Rate: 93 P: 61 NM: 247 QRS: -68 QRSD: 119 T: 14 QT: 383 QTc: 433 Interpretive Statements SINUS RHYTHM WITH FIRST DEGREE AV BLOCK INCOMPLETE RIGHT BUNDLE BRANCH BLOCK INFERIOR MYOCARDIAL INFARCTION, OF INDETERMINATE AGE ANTEROLATERAL MYOCARDIAL INFARCTION, OF INDETERMINATE AGE Electronically Signed On 10-27-2017 10:56:19 EST by Kenny Davis MD
--- NOTE | 2017-10-27 18:13 | Neurology - Consult Note ---
Date of Encounter: 10/27/17 Time of Encounter: 18:09 Assessment and Plan (1) Dermatomyositis Current Visit: Yes Status: Acute I agree that this is likely a flareup of her dermatomyositis. I do not believe that any other condition would have been so responsive to corticosteroid therapy in such a short period of time. She is currently on CellCept and is being managed by Dr. Leon. I will defer further management to his discretion. I will reevaluate her at your request. History of Present Illness HPI: Ms. Boyce is a 62 year old female with a history of dermatomyositis is being seen for neurological consultation secondary to an acute flareup. She was diagnosed with dermatomyositis about 5 years or so ago at the [facility]. She previously been on steroids for treatment of this and was tapered off her steroids and started on CellCept 1. 5 in the morning and 1 mg in the evening. She states that she was tapered off the steroids about 2 or 3 months ago. She has been increasingly weak over the last day or 2. She was given prednisone in the ED and Solu-Medrol since admission. Her sedimentation rate was elevated at about 62 and the deep. She is already improved since getting the steroid medications. She denies diplopia denies shortness of breath, denies any other bulbar problems. She does have diabetic polyneuropathy as well. Past Med Surg Social Fam HX - Past Medical History Medical history: arthritis, cardiomyopathy, COPD, diabetes, GERD, hyperlipidemia , hypertension, osteoporosis, peripheral artery disease, pulmonary embolus, other Psychiatric history: anxiety, bipolar, depression, panic disorder, other - Past Surgical History Surgical History: cholecystectomy, hysterectomy, knee replacement, orthopedic, other (Left hand surgery.), pacemaker/AICD, sinus surgery (Tonsillectomy adenoidectomy. Uvula-ectomy.), other (Pericardial window.) - Social History Smoking Status: Never smoker Smokeless Tobacco Status: No Alcohol use: none Drug use: none - Family History Father Living Status: Hx Family Cardiac Disorders: Yes ([place]) Hx Family Endocrine Disorder: Yes ([place]) Mother Living Status: Still Living Hx Family Endocrine Disorder: Yes ([place]) Medications and Allergies Amitriptyline [Elavil] 25 mg PO HS 08/27/15 [History] Budesonide/Formoterol 80/4.5 [Symbicort 80/4.5] 2 puff IH BID PRN #0 08/27/15 [ History] LORazepam [Ativan] 2 mg PO Q6H PRN #0 08/27/15 [History] Lisinopril [Zestril] 20 mg PO DAILY #0 08/27/15 [History] Metoprolol [Lopressor] 100 mg PO BID #0 08/27/15 [History] Mupirocin [Bactroban Oint] 1 appl NS MOWEFR 08/27/15 [History] NIFEdipine [Nifedipine ER] 90 mg PO BID #0 08/27/15 [History] Topiramate [Topamax] 25 mg PO HS 08/27/15 [History] Sitagliptin Phos/Metformin HCl [Janumet 50-1,000 mg Tablet] 1 tab PO BID PRN 08/16 [History] Ergocalciferol (VITAMIN D2) [Vitamin D2 (50,000 UNIT)] 50,000 unit PO QWEEK [History] Acyclovir [Zovirax] 1 appl TP AD 08/17/16 [History] HYDROcodone/Acet 10/325 mg [[place] 10-325 mg] 1 tab PO Q6HR PRN 08/17/16 [History ] Lidocaine 1 appl TP AD 08/17/16 [History] Pregabalin [Lyrica] 50 mg PO TID 09/26/16 [History] PredniSONE [Emmy] 5 mg PO DAILY #7 tablet. 07/02/17 [Rx] Albuterol Sulfate [Albuterol Inhaler] 1 - 2 puff IH Q6H PRN 10/26/17 [History] Esomeprazole Magnesium [Nexium] 40 mg PO DAILY 10/26/17 [History] Glimepiride [Amaryl] 4 mg PO DAILY 10/26/17 [History] 3 Allergy/AdvReac Type Severity Reaction Status Date / Time No Known Allergies Allergy Verified 10/26/17 00:02 All Systems: A 10-system review of systems was performed and is negative for pertinent findings except as documented above in the HPI. Review of Systems: 10 point review of systems is consistent with history of present illness and otherwise negative. Physical Examination - Vital Signs Vital Signs: Initial Vital Signs Temp Pulse Resp BP Pulse Ox 97.9 F 96 20 144/85 94 10/25/17 23:57 10/25/17 23:57 10/25/17 23:57 10/25/17 23:57 10/25/17 23:57 - Neurologic Detailed motor examination: full strength in all major muscle groups Motor examination - right side: 2/5: tibialis Anterior, toe extension (EHL), plantarflexion, 3/5: deltoids, biceps, triceps, wrist flexion, wrist extension, rattan worker, hip flexors, quadriceps Motor examination - left side: 2/5: tibialis Anterior, toe extension (EHL), plantarflexion, 3/5: deltoids, biceps, triceps, wrist flexion, wrist extension, hip flexors, rattan worker, quadriceps Detailed sensory examination: other (Decreased sensation distally of both lower extremities.) Reflex and gait examination: other (Deep tendon reflexes are absent throughout.) Mental Status Examination: awake, alert, oriented to person, oriented to place, oriented to time, follows commands appropriately, answers questions appropriately, no agnosia, no aphasia, no aproxia Cranial nerve examination: PERRL, EOMI, visual parr intact, corneal reflexes brisk symmetrically, sensory to face intact, mastication intact, no facial asymmetry is present, no dysarthria, hearing is intact symmetrically, soft palate elevates bilaterally upon phonation, gag reflex intact, flexes SCM and trapezius muscles symmetrically with full power, tongue protrudes midline, no atrophy or facial fasiculations present Cerebellar examination: no dysmetria, performs finger to nose and heel to hurd symmetrically without ataxia, no gait ataxia, no truncal ataxia, no difficulty with rapid alternating movements Results - Laboratory Findings CBC and BMP: 10/27/17 05:29 10/27/17 05:29 Abnormal lab findings: Abnormal lab results Lymphocytes # 0.5 K/mcL (0.6-4.6) L 10/27/17 05:29 ESR 68 mm/hr (0-15) H 10/26/17 00:20 PT 12.4 Seconds (9.4-12.1) H 10/26/17 05:31 BUN 27 mg/dL (7-20) H 10/27/17 05:29 BUN/Creatinine Ratio 29 (6-26) H 10/27/17 05:29 Glucose 234 mg/dL (70-99) H 10/27/17 05:29 POC Glucose 92 (58-89) H 10/27/17 16:16 Calculated Osmolality 301 (280-300) H 10/27/17 05:29 Triglycerides 214 mg/dL (< 150) H 10/26/17 05:31 Cholesterol 270 mg/dL (< 200) H 10/26/17 05:31 LDL Cholesterol, Calc 188 mg/dL (0-99) H 10/26/17 05:31 VLDL Cholesterol, Calc 43 mg/dL (< 31) H 10/26/17 05:31 HDL Cholesterol 39 mg/dL (40-59) L 10/26/17 05:31 Cholesterol/HDL Ratio 6.9 (0-4.9) H 10/26/17 05:31 Urine Clarity Cloudy (Clear) A 10/26/17 05:20 Ur Leukocyte Esterase Moderate (Negative) H 10/26/17 05:20 Urine Microscopic RBC 5-15 per hpf (0-3) H 10/26/17 05:20 Urine Microscopic WBC 5-15 per hpf (0-3) H 10/26/17 05:20 Ur Squamous Epith Cells Many per lpf (None-Few) H 10/26/17 05:20 Urine Bacteria Many per hpf (None-Few) H 10/26/17 05:20 Consult Discharge Plan - Plan Referrals: Gaurav Thomas MD [Primary Care Provider] -
[2017-10-28] MEDS ORDERED: *HR* Dextrose 50 % in Water (Syg) 50 ML SYRINGE IVP PRN (01:00)
[2017-10-28] MEDS ORDERED: D5% in Water 1,000 ML IVC PRN (01:00)
[2017-10-28] MEDS ORDERED: Dextrose Gel 15 GM PO PRN ×2 (01:00)
[2017-10-28] MEDS: *HR* LORazepam 1 MG TABLET PO PRN ×2 (01:28→08:17)
[2017-10-28] MEDS: *HR* Heparin 5,000 UNIT/ML VIAL SQ SCH (05:14)
[2017-10-28] MEDS: Lidocaine OINT 35.44 GM TUBE TP SCH (06:42)
[2017-10-28] MEDS ORDERED: Insulin LISPRO 300 UNITS/3 ML VIAL SQ SCH ×3 (07:30→21:00)
[2017-10-28 07:56] VITALS: BP 139/79
[2017-10-28] MEDS: Budesonide/Formoterol 80/4.5 MDI IH SCH (08:07)
[2017-10-28] MEDS: Metoprolol 100 MG TABLET PO SCH (08:12)
[2017-10-28] MEDS: Aspirin 81 MG TAB.CHEW PO SCH (08:12)
[2017-10-28] MEDS: NIFEdipine XL (24 HR) 30 MG TAB.ER.24 PO SCH (08:12)
[2017-10-28] MEDS: Lisinopril 20 MG TABLET PO SCH (08:12)
[2017-10-28] MEDS: Pregabalin 50 MG CAPSULE PO SCH (08:13)
--- NOTE | 2017-10-28 09:47 | Discharge Summary ---
Date of Encounter: 10/28/17 Time of Encounter: 09:44 - Discharge Diagnosis (1) Diabetes Priority: Secondary Status: Chronic Comments: clinically stable no new issues Qualifiers: Diabetes mellitus type: type 2 Diabetes mellitus complication status: with unspecified complications Diabetes mellitus terminal clerk insulin use: unspecified retirement insulin use status Qualified Code(s): E11.8 - Type 2 diabetes mellitus with unspecified complications (2) Hypertension Priority: Secondary Status: Chronic Comments: well controlled Qualifiers: Hypertension type: essential hypertension Qualified Code(s): I10 - Essential (primary) hypertension (3) Dyslipidemia Priority: Secondary Status: Chronic Comments: coninue current Rx (4) Anxiety and depression Priority: Secondary Status: Chronic Comments: no new issues (5) Dermatomyositis Priority: Primary Status: Acute Comments: with acute flare seen by neurology and rheumatology clinically much improved and will dc on home meds and she will follow up with her labeling specialist (6) COPD (chronic obstructive pulmonary disease) Priority: Secondary Status: Chronic Comments: no active sob or wheezzing Qualifiers: COPD type: unspecified COPD Qualified Code(s): J44.9 - Chronic obstructive pulmonary disease, unspecified - Discharge Medications Home Medications: Amitriptyline [Elavil] 25 mg PO HS 08/27/15 [History] Budesonide/Formoterol 80/4.5 [Symbicort 80/4.5] 2 puff IH BID PRN #0 08/27/15 [ History] LORazepam [Ativan] 2 mg PO Q6H PRN #0 08/27/15 [History] Lisinopril [Zestril] 20 mg PO DAILY #0 08/27/15 [History] Metoprolol [Lopressor] 100 mg PO BID #0 08/27/15 [History] Mupirocin [Bactroban Oint] 1 appl NS MOWEFR 08/27/15 [History] NIFEdipine [Nifedipine ER] 90 mg PO BID #0 08/27/15 [History] Topiramate [Topamax] 25 mg PO HS 08/27/15 [History] Sitagliptin Phos/Metformin HCl [Janumet 50-1,000 mg Tablet] 1 tab PO BID PRN 08/16 [History] Ergocalciferol (VITAMIN D2) [Vitamin D2 (50,000 UNIT)] 50,000 unit PO QWEEK [History] Acyclovir [Zovirax] 1 appl TP AD 08/17/16 [History] HYDROcodone/Acet 10/325 mg [[place] 10-325 mg] 1 tab PO Q6HR PRN 08/17/16 [History ] Lidocaine 1 appl TP AD 08/17/16 [History] Pregabalin [Lyrica] 50 mg PO TID 09/26/16 [History] PredniSONE [Emmy] 5 mg PO DAILY #7 tablet. 07/02/17 [Rx] Albuterol Sulfate [Albuterol Inhaler] 1 - 2 puff IH Q6H PRN 10/26/17 [History] Esomeprazole Magnesium [Nexium] 40 mg PO DAILY 10/26/17 [History] Glimepiride [Amaryl] 4 mg PO DAILY 10/26/17 [History] Allergies/Adverse Reactions: 3 Allergy/AdvReac Type Severity Reaction Status Date / Time No Known Allergies Allergy Verified 10/26/17 00:02 Procedures/tests Complete & Pending: Procedures Performed prior 72 hours Category Date Time Status CT head/brain wo con [CT] Stat Cat Scan 10/26/17 05:23 Completed EV echocardiogram Routine Y 10/26/17 05:41 Completed Date of admission: 10/26/17 04:03 Primary care physician: Gaurav Thomas MD Consults: 10/26/17 05:34 Consult to Physician [CONS] Routine Consulting Provider: Luke Moreno Reason for Consult: Flareup of dermatomyositis Call Completed: No 10/26/17 05:38 Consult to Occupational Therapy [CONS] Routine Comment: Evaluate, develop and implement POC Reason for Consult: Bilateral lower leg weakness, dermatomyositis flareup, OT eval Consult to Physical Therapy [CONS] Routine Comment: Evaluate, develop and implement POC Reason for Consult: Bilateral leg weakness, dermatomyositis flareup, PT eval 10/26/17 19:32 Consult to Neurology [CONS] Routine Consulting Provider: Neurology [facility] Reason for Consult: lower extremites weakness Call Completed: Yes Discharging clinician: Zackery Scott Anticipated date of discharge: 10/28/17 - Patient Status Disposition: Home, Self-Care Overall status at discharge: patient is back to baseline - Discharge Instructions Follow Up With: Gaurav Thomas MD [Primary Care Provider] - Hospital course: Ms. Boyce is a 62 year old female patient admitted with demartomyosistis flare treated with steroid and responded well seen in consultation by neurology and rhematologist please see report and follow up she is now stable for discharge will follow up with labeling specialist and continue home meds Time spent discussing smoking cessation with patient: more than 10 minutes - Time Spent with Patient Total time spent providing and/or coordinating discharge services: Greater than 30 minutes - Constitutional Vitals: Temp Pulse Resp BP Pulse Ox 98.0 F 70 18 139/79 99 10/28/17 07:53 10/28/17 07:53 10/28/17 08:09 10/28/17 07:53 10/28/17 08:09 General appearance: Present: cooperative, pleasant, no acute distress, answers questions appropriately
[2017-10-28] MEDS: Insulin DETEMIR 100 UNIT/ML X5UNITS SQ SCH (10:49)
== END 2017-10-28 11:40 | disposition home or self-care (01) | DRG 546 ==
LOC: EMEROO 23:39 → 3NENU 23:39
PROVIDERS: ADMIT Internal Medicine; ATTEND Internal Medicine

== ENCOUNTER 2019-09-01 07:34 | Observation (INO) ==
--- NOTE | 2019-09-01 07:40 | Emergency Department Note ---
Disposition Clinical Impression: Weakness Disposition: Home, Self-Care Condition: Fair Time of Disposition: 10:10 General Adult HPI - General Stated complaint: fall Time Seen by Provider: 09/01/19 07:35 Nursing Notes Reviewed: Yes Vital Signs Reviewed: Yes - Related Data Home Medications Medication Instructions Recorded Confirmed Albuterol Sulfate [Ventolin Hfa] 2 puff IH Q4H PRN 05/14/19 05/14/19 Amitriptyline [Elavil] 25 mg PO HS 05/14/19 05/14/19 Apixaban [Eliquis] 5 mg PO BID 05/14/19 05/14/19 Aspirin [Lo-Dose Aspirin EC] 81 mg PO DAILY 05/14/19 05/14/19 Atorvastatin Calcium [Lipitor] 20 mg PO HS 05/14/19 05/14/19 Budesonide/Formoterol 80/4.5 2 puff IH BID 05/14/19 05/14/19 [Symbicort 80/4.5] Ergocalciferol (VITAMIN D2) 50,000 unit PO MO 05/14/19 05/14/19 [Vitamin D2] Esomeprazole Magnesium [Nexium] 40 mg PO DAILY 05/14/19 Glimepiride [Amaryl] 4 mg PO DAILY 05/14/19 HYDROcodone/Acet 10/325 mg [[place] 1 tab PO Q6H PRN 05/14/19 05/14/19 10-325 mg] LORazepam [Ativan] 1 mg PO TID 05/14/19 05/14/19 Lisinopril [Zestril] 20 mg PO DAILY 05/14/19 Metoprolol Tartrate 100 mg PO BID 05/14/19 Mycophenolate Mofetil [Cellcept] 500 mg PO BID 05/14/19 05/14/19 Potassium Chloride [K-Tab ER] 10 meq PO DAILY 05/14/19 05/14/19 Pregabalin [Lyrica] 100 mg PO BID 05/14/19 05/14/19 Sitagliptin Phos/Metformin HCl 1 tab PO BID 05/14/19 [Janumet 50-1,000 mg Tablet] Previous Rx's Medication Instructions Recorded Bumetanide [Bumex] 1 mg PO PRN PRN #0 05/20/19 Allergies Allergy/AdvReac Type Severity Reaction Status Date / Time No Known Allergies Allergy Verified 05/14/19 12:03 Past Medical History - Past Medical History Medical history: Reports: atrial fibrillation, COPD, diabetes, GERD, hyperlip idemia, hypertension, seizures Surgical history: Reports: cholecystectomy, hysterectomy, knee replacement, orthopedic, other, pacemaker/AICD, sinus surgery, other Psychiatric history: Reports: anxiety, bipolar, depression, panic disorder, other 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: 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 history - Social History Smoking Status: Never smoker Smokeless Tobacco Status: No Alcohol use: Reports: none Drug use: Reports: none Course Vital Signs Temperature 98.5 F 09/01/19 07:38 Pulse Rate 77 09/01/19 07:38 Respiratory Rate 16 09/01/19 07:38 Blood Pressure 124/100 09/01/19 07:38 O2 Sat by Pulse Oximetry 100 09/01/19 07:38 Temperature 98.5 F 09/01/19 07:38 Pulse Rate 85 09/01/19 09:52 Respiratory Rate 18 09/01/19 09:52 Blood Pressure 148/82 09/01/19 09:52 O2 Sat by Pulse Oximetry 100 09/01/19 09:52 Oxygen Delivery Oxygen Delivery Room Air Medical Decision Making - [facility] Narrative Medical decision making narrative: Chest X-Ray 09/01/19 08:17 IMPRESSION: Patchy bilateral lower lobe airspace opacities, nonspecific. This could represent atelectasis or evolving pneumonia. Follow up PA and lateral chest recommended to assure resolution. D/ / Eddie Tavarez MD / Eddie Tavarez MD Interpreting Provider: Eddie Tavarez MD Hip/Pelvis X-Ray 09/01/19 08:18 IMPRESSION: No acute abnormality in the pelvis or either hip. D/ / Carlos Manuel Morales MD / Carlos Manuel Morales MD Interpreting Provider: Carlos Manuel Morales MD Head CT 09/01/19 08:33 IMPRESSION: No acute intracranial abnormality. D/ / Eddie Tavarez MD / Eddie Tavarez MD Interpreting Provider: Eddie Tavarez MD Cervical Spine CT 09/01/19 08:45 IMPRESSION: No acute abnormality of the cervical spine. D/ / Carlos Manuel Morales MD / Carlos Manuel Morales MD Interpreting Provider: Carlos Manuel Morales MD 0958 hrs.: Due to her falls and her overall condition were in a bring her into the hospital she may need some service consult she may need some PT evaluation also. Spoke with hospitalist in agreement with plan as this patient. - Lab Data Result diagrams: 09/01/19 07:50 09/01/19 07:59 Lab Results 09/01/19 09/01/19 09/01/19 Range/Units 07:50 07:59 07:59 WBC 9.6 (4.3-11.1) K/mcL RBC 4.01 (3.82-4.97) M/mcL Hgb 11.8 (11.5-15.4) g/dL Hct 38.0 (35.3-44.9) % MCV 94.8 (83.0-100.0) fL MCH 29.4 (28.0-33.3) pg MCHC 31.1 L (31.6-35.5) g/dL RDW 13.2 (11.5-14.5) % Plt Count 322 (140-400) K/mcL MPV 10.0 (9.4-12.4) fL Immature Gran % 0.3 (0-4) % Seg Neutrophils % 75.0 % Lymphocytes % 14.6 % Monocytes % 6.3 % Eosinophils % 3.1 % Basophils % 0.7 % Neutrophils # 7.2 (1.6-8.9) K/mcL Lymphocytes # 1.4 (0.6-4.6) K/mcL Monocytes # 0.6 (0.0-1.3) K/mcL Eosinophils # 0.3 (0.0-0.6) K/mcL Basophils # 0.1 (0.0-0.2) K/mcL Sodium 139 (136-145) mEq/L Potassium 3.4 L (3.5-5.1) mEq/L Chloride 109 H (98-107) mEq/L Carbon Dioxide 25 (23-29) mEq/L BUN 15 (8-23) mg/dL Creatinine 0.83 (0.60-1.20) mg/dL Est GFR ( Amer) > 60 (> 60) Est GFR (Non-Af Amer) > 60 (> 60) BUN/Creatinine Ratio 18 (6-26) Glucose 222 H (70-105) mg/dL Calculated Osmolality 296 (280-300) Calcium 8.7 (8.6-10.3) mg/dL Creatine Kinase 109 (30-223) Units/L Troponin I < 0.03 (< 0.04) ng/mL B-Natriuretic Peptide 135 H (Less than 100) pg/mL Attestation Statement - Attestation Attestation: This documentation is done with the assistance of Dragon dictation. Despite efforts made to ensure accuracy, there may be inaccuracies in filer and sander or spelling and typographical errors. I examined this patient and my medical decision-making was reviewed with the Resident Physician. I agree with the documented findings, disposition and treatment plan as described except to the extent set forth below. Patient was seen and evaluated by Dr. Jonas, I agree with their evaluation and management plan, I supervised care the patient's stay. Patient arrives by EMS from assisted living she went to the bathroom about 5:00 this morning, dizzy fell hit her head does not think she lost consciousness complains some pain in her legs. She said this happened to her before she does have some edema in her legs no signs of obvious trauma. We will CT her head do a workup for her dizziness and possible syncope and reassess. She is in agreement with plan. I reviewed the residents documentation and agree with the residents assessment and plan of care. I have personally had face to face time with the patient. (Brief History, Brief Exam, and MDM) I personally supervised and was present for the seaman/critical portions of the following procedures completed by the resident: EKG was interpreted by the resident under my supervision, I agree with their interpretation.
--- NOTE | 2019-09-01 07:41 | Emergency Department Note ---
Disposition Clinical Impression: Weakness Disposition: Home, Self-Care Condition: Good Time of Disposition: 10:10 General Adult HPI - General Stated complaint: fall Time Seen by Provider: 09/01/19 07:35 Source: patient, EMS Nursing Notes Reviewed: Yes Vital Signs Reviewed: Yes - History of Present Illness HPI Narrative: 64-year-old female presents emergency department with concern for fall this morning. Patient reports that she woke up to go to the bathroom and got dizzy. She reports that the dizziness was not room spinning sensation. She just states that she just feels dizzy. Has had in the past, and this is not new. She fell and struck the right forehead on the floor. She is also complaining of some left-sided neck pain as well. Has also complained of left lower extremity swelling for the last few days. Patient states that she feels very weak. She states that 7 difficulty getting around. Also reports history of dermatomyositis which impedes her from ambulating well. She denies any chest pain shortness of breath, fevers. She does report that her extremities appear little more swollen than normal. Pain Scale: 8 - Related Data Home Medications Medication Instructions Recorded Confirmed Albuterol Sulfate [Ventolin Hfa] 2 puff IH Q4H PRN 05/14/19 05/14/19 Amitriptyline [Elavil] 25 mg PO HS 05/14/19 05/14/19 Apixaban [Eliquis] 5 mg PO BID 05/14/19 05/14/19 Aspirin [Lo-Dose Aspirin EC] 81 mg PO DAILY 05/14/19 05/14/19 Atorvastatin Calcium [Lipitor] 20 mg PO HS 05/14/19 05/14/19 Budesonide/Formoterol 80/4.5 2 puff IH BID 05/14/19 05/14/19 [Symbicort 80/4.5] Ergocalciferol (VITAMIN D2) 50,000 unit PO MO 05/14/19 05/14/19 [Vitamin D2] Esomeprazole Magnesium [Nexium] 40 mg PO DAILY 05/14/19 Glimepiride [Amaryl] 4 mg PO DAILY 05/14/19 HYDROcodone/Acet 10/325 mg [[place] 1 tab PO Q6H PRN 05/14/19 05/14/19 10-325 mg] LORazepam [Ativan] 1 mg PO TID 05/14/19 05/14/19 Lisinopril [Zestril] 20 mg PO DAILY 05/14/19 Metoprolol Tartrate 100 mg PO BID 05/14/19 Mycophenolate Mofetil [Cellcept] 500 mg PO BID 05/14/19 05/14/19 Potassium Chloride [K-Tab ER] 10 meq PO DAILY 05/14/19 05/14/19 Pregabalin [Lyrica] 100 mg PO BID 05/14/19 05/14/19 Sitagliptin Phos/Metformin HCl 1 tab PO BID 05/14/19 [Janumet 50-1,000 mg Tablet] Previous Rx's Medication Instructions Recorded Bumetanide [Bumex] 1 mg PO PRN PRN #0 05/20/19 Allergies Allergy/AdvReac Type Severity Reaction Status Date / Time No Known Allergies Allergy Verified 05/14/19 12:03 All systems ED: reviewed and negative except as stated. Review of Systems: As Per HPI Constitutional: Denies: fever Cardiovascular: Denies: chest pain, palpitations, syncope Respiratory: Denies: cough, dyspnea Gastrointestinal: Denies: abdominal pain, nausea, vomiting Genitourinary: Denies: urgency, dysuria, frequency Musculoskeletal: Reports: neck pain. Denies: back pain Integumentary: Reports: rash Neurological: Reports: weakness. Denies: numbness, paresthesias Past Medical History - Past Medical History Attestation: Yes The following information was validated with the patient. 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 Absent: respiratory distress, accessory muscle use - Cardiovascular Cardiovascular exam: Present: regular rate, normal rhythm, normal heart sounds - Abdominal Exam Abdominal exam: Present: soft, Non-Tender. Absent: distention, guarding, rebound, rigidity - Extremities Exam Extremities exam: Present: pedal edema (Worse on the left) - Back Exam Back exam: Present: full ROM. Absent: tenderness - Neurological Exam Neurological exam: Present: alert, oriented X3 - Psychiatric Psychiatric exam: Present: normal affect, normal mood - Skin Skin exam: Present: warm Course Vital Signs Temperature 98.5 F 09/01/19 07:38 Pulse Rate 77 09/01/19 07:38 Respiratory Rate 16 09/01/19 07:38 Blood Pressure 124/100 09/01/19 07:38 O2 Sat by Pulse Oximetry 100 09/01/19 07:38 Temperature 98.5 F 09/01/19 07:38 Pulse Rate 85 09/01/19 09:52 Respiratory Rate 18 09/01/19 09:52 Blood Pressure 148/82 09/01/19 09:52 O2 Sat by Pulse Oximetry 100 09/01/19 09:52 Oxygen Delivery Oxygen Delivery Room Air Medical Decision Making - [facility] Narrative Medical decision making narrative: 64-year-old female presents emergency department with concern for generalized weakness and fall earlier today. Obtain CT scan of the head and does not reveal any evidence of intracranial abnormality. CT scan of the neck did not reveal any acute changes. Chest x-ray revealed possible nonspecific airspace opacities echo represent atelectasis versus pneumonia per patient does not shortness of breath, cough, sputum production, fever, and his white count here. Do not suspect pneumonia at this time. Hip and pelvis x-ray were normal. Labs were baseline normal limits. Patient to be admitted for increasing weakness with inability to ambulate with a walker at home. She was not even able to lift her legs off the stretcher on physical exam. Dr. Calloway accepts patient. Chest X-Ray 09/01/19 08:17 IMPRESSION: Patchy bilateral lower lobe airspace opacities, nonspecific. This could represent atelectasis or evolving pneumonia. Follow up PA and lateral chest recommended to assure resolution. D/ / 09/01/2019 09:06:30 Eddie Tavarez MD / jean Interpreting Provider: Eddie Tavarez MD Hip/Pelvis X-Ray 09/01/19 08:18 IMPRESSION: No acute abnormality in the pelvis or either hip. D/ / Carlos Manuel Morales MD / Carlos Manuel Morales MD Interpreting Provider: Carlos Manuel Morales MD Head CT 09/01/19 08:33 IMPRESSION: No acute intracranial abnormality. D/ / Eddie Tavarez MD / Eddie Tavarez MD Interpreting Provider: Eddie Tavarez MD Cervical Spine CT 09/01/19 08:45 IMPRESSION: No acute abnormality of the cervical spine. D/ / Carlos Manuel Morales MD / Carlos Manuel Morales MD Interpreting Provider: Carlos Manuel Morales MD - Lab Data Result diagrams: 09/01/19 07:50 09/01/19 07:59 Lab Results 09/01/19 09/01/19 09/01/19 Range/Units 07:50 07:59 07:59 WBC 9.6 (4.3-11.1) K/mcL RBC 4.01 (3.82-4.97) M/mcL Hgb 11.8 (11.5-15.4) g/dL Hct 38.0 (35.3-44.9) % MCV 94.8 (83.0-100.0) fL MCH 29.4 (28.0-33.3) pg MCHC 31.1 L (31.6-35.5) g/dL RDW 13.2 (11.5-14.5) % Plt Count 322 (140-400) K/mcL MPV 10.0 (9.4-12.4) fL Immature Gran % 0.3 (0-4) % Seg Neutrophils % 75.0 % Lymphocytes % 14.6 % Monocytes % 6.3 % Eosinophils % 3.1 % Basophils % 0.7 % Neutrophils # 7.2 (1.6-8.9) K/mcL Lymphocytes # 1.4 (0.6-4.6) K/mcL Monocytes # 0.6 (0.0-1.3) K/mcL Eosinophils # 0.3 (0.0-0.6) K/mcL Basophils # 0.1 (0.0-0.2) K/mcL Sodium 139 (136-145) mEq/L Potassium 3.4 L (3.5-5.1) mEq/L Chloride 109 H (98-107) mEq/L Carbon Dioxide 25 (23-29) mEq/L BUN 15 (8-23) mg/dL Creatinine 0.83 (0.60-1.20) mg/dL Est GFR ( Amer) > 60 (> 60) Est GFR (Non-Af Amer) > 60 (> 60) BUN/Creatinine Ratio 18 (6-26) Glucose 222 H (70-105) mg/dL Calculated Osmolality 296 (280-300) Calcium 8.7 (8.6-10.3) mg/dL Creatine Kinase 109 (30-223) Units/L Troponin I < 0.03 (< 0.04) ng/mL B-Natriuretic Peptide 135 H (Less than 100) pg/mL - EKG Data EKG #1 EKG attestation: Yes I reviewed and interpreted this EKG. EKG results narrative: 07:53 heartrate 79 bpm, regular rhythm, QRS 121 ms, QT 427 ms Sinus rhythm with no ischemic ST changes. interpretation affected by artifact. EKG appears unchanged from previous obtain April 03, 2019.
[2019-09-01 08:13] LABS: Basophils # 0.1 K/mcL (0.0-0.2); Basophils % 0.7 %; Eosinophils # 0.3 K/mcL (0.0-0.6); Eosinophils % 3.1 %; Hemoglobin 11.8 g/dL (11.5-15.4); Immature Granulocytes % 0.3 % (0-4); Lymphocytes # 1.4 K/mcL (0.6-4.6); Lymphocytes % 14.6 %; Mean Corpuscular HGB Conc 31.1 g/dL (31.6-35.5); Mean Corpuscular Hemoglobin 29.4 pg (28.0-33.3); Mean Corpuscular Volume 94.8 fL (83.0-100.0); Monocytes # 0.6 K/mcL (0.0-1.3); Monocytes % 6.3 %; Neutrophils # 7.2 K/mcL (1.6-8.9); Platelet Count 322 K/mcL (140-400); Red Blood Count 4.01 M/mcL (3.82-4.97); Red Cell Distribution Width 13.2 % (11.5-14.5); White Blood Count 9.6 K/mcL (4.3-11.1)
[2019-09-01 08:29] LABS: BUN/Creatinine Ratio 18 (6-26); Blood Urea Nitrogen 15 mg/dL (8-23); Calcium 8.7 mg/dL (8.6-10.3); Carbon Dioxide 25 mEq/L (23-29); Chloride 109 mEq/L (98-107); Creatine Kinase 109 Units/L (30-223); Glucose 222 mg/dL (70-105); Osmolality,Calculated 296 (280-300); Potassium 3.4 mEq/L (3.5-5.1); Sodium 139 mEq/L (136-145); eGFR For African Americans > 60 (> 60); eGFR For Non-African Americans > 60 (> 60)
[2019-09-01 08:44] LABS: Troponin I < 0.03 ng/mL (< 0.04)
[2019-09-01] MEDS ORDERED: 0.9 % Sodium Chloride 1,000 ML IVC ONE (09:40)
[2019-09-01] MEDS ORDERED: Morphine Sulfate 2 MG/ML SYRINGE IVP ONE (09:46)
--- NOTE | 2019-09-01 09:55 | Internal Med History&Physical ---
<Amari Jacques - Last Filed: 09/01/19 11:30> Date of Encounter: 09/01/19 Time of Encounter: 10:30 Internal Medicine - H&P: HPI Chief complaint: Fall Admitted From: Emergency Dept Plans for Post Hospital Care: Home History of present illness: Ms. Boyce is a 64 year old female with history of dematomyocitis, COPD, diabetes mellitus, GERD, hyperlipidemia, hypertension who presented to the ED following a fall event at her house and this morning. The patient states that this morning she woke up to go to the bathroom and when she arrived in the bathroom she got suddenly "dizzy "and had a fall into her walk in shower. She says that she was on the ground until the paramedics arrived on the ventilator. She notes that, while the room was not spinning, she felt very lightheaded and she was unable to maintain her balance. In addition of this, she felt that her legs were very weak and she was no longer able to maintain her weight. This has happened to her before, and she says that she does regularly feel that her legs are quite wobbly. She does say that her leg weakness has been getting worse over the past several weeks. 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 She notes that she has had flares of her disease in the past which was felt much worse than this. Also notably, the patient does mention that she has had a cough with production of thick green sputum over the past couple of days. She denies any fevers although she does admit to chills which she says are somewhat chronic in nature. She has some shortness of breath which is also chronic, and she says that she makes an effort to avoid using her home oxygen because she is afraid that she will become hooked on it. She otherwise has no acute complaints at this time. In the ED, the patient had CT of the head, cervical spine which were negative for any findings. She also had x-rays of the hip and pelvis which did not demonstrate any fractures. She did have an x-ray of the chest which showed bilateral patchy opacities concerning for pneumonia vs atelectasis. EKG in the ER demonstrated sinus rhythm with a rate of 79, QRS 121, QTC of 427 and no obvious ischemic changes. She had labs which were essentially nonrevealing. The patient is being admitted to the hospital for further workup of acute weakness, fall, and cough. Past Med Surg Social Fam HX - Past Medical History Medical history: atrial fibrillation, COPD, diabetes, GERD, hyperlipidemia, hypertension, seizures Additional medical history: dermatomyositis,DALTON,pacer, alcd Psychiatric history: anxiety, bipolar, depression, panic disorder, other - Past Surgical History Surgical History: cholecystectomy, hysterectomy, knee replacement, orthopedic, other, pacemaker/AICD, sinus surgery, other Additional surgical history: tonsil/adenoids, pericadrial window, uvulectomy - Social History Smoking Status: Never smoker Smokeless Tobacco Status: No Alcohol use: none Drug use: none - Family History Father Living Status: Hx Family Cardiac Disorders: Yes ([place]) Hx Family Endocrine Disorder: Yes (DM) Mother Living Status: Still Living Hx Family Endocrine Disorder: Yes (DM) Internal Medicine - H&P: Meds Albuterol Sulfate [Ventolin Hfa] 2 puff IH Q4H PRN 05/14/19 [History] Amitriptyline [Elavil] 25 mg PO HS 05/14/19 [History] Apixaban [Eliquis] 5 mg PO BID 05/14/19 [History] Aspirin [Lo-Dose Aspirin EC] 81 mg PO DAILY 05/14/19 [History] Atorvastatin Calcium [Lipitor] 20 mg PO HS 05/14/19 [History] Budesonide/Formoterol 80/4.5 [Symbicort 80/4.5] 2 puff IH BID 05/14/19 [History] Ergocalciferol (VITAMIN D2) [Vitamin D2] 50,000 unit PO MO 05/14/19 [History] Esomeprazole Magnesium [Nexium] 40 mg PO DAILY 05/14/19 [History] Glimepiride [Amaryl] 4 mg PO DAILY 05/14/19 [History] HYDROcodone/Acet 10/325 mg [[place] 10-325 mg] 1 tab PO Q6H PRN 05/14/19 [History] LORazepam [Ativan] 1 mg PO TID 05/14/19 [History] Lisinopril [Zestril] 20 mg PO DAILY 05/14/19 [History] Metoprolol Tartrate 100 mg PO BID 05/14/19 [History] Mycophenolate Mofetil [Cellcept] 500 mg PO BID 05/14/19 [History] Potassium Chloride [K-Tab ER] 10 meq PO DAILY 05/14/19 [History] Pregabalin [Lyrica] 100 mg PO BID 05/14/19 [History] Sitagliptin Phos/Metformin HCl [Janumet 50-1,000 mg Tablet] 1 tab PO BID 05/14/19 [History] Bumetanide [Bumex] 1 mg PO PRN PRN #0 05/20/19 [Rx] Allergy/AdvReac Type Severity Reaction Status Date / Time No Known Allergies Allergy Verified 05/14/19 12:03 All Systems PM: A 10-system review of systems was performed and is negative for pertinent findings except as documented above in the HPI. Review of systems: Constitutional: Denies fevers. Admits to 5lb weight loss, generalized fatigue, and chronic chills Head/Neck: Denies BARBER, neck stiffness EENT: Denies vision changes/blurriness, rhinorrhea, congestion, sore throat CVS: Denies chest pain, palpitations, WARD, orthopnea, edema, PND Pulm: Admits to SOB, cough with thick sputum GI: Denies abdominal pain, vomiting, constipation, melena, hematemasis : Denies dysuria, increased frequency, urgency, hematuria Heme: Denies ease of bleeding or bruising MSK: Denies joint pain, limited ROM. Admits to chronic muscle weakness Skin: Denies rashes, ulcers, color changes Neuro: Denies BARBER. Admits to paresthesias, focal deficits, ataxia which are chronic, but potentially worse - Constitutional Vitals: Temp Pulse Resp BP Pulse Ox 98.5 F 85 18 148/82 100 09/01/19 07:38 09/01/19 09:52 09/01/19 09:52 09/01/19 09:52 09/01/19 09:52 Exam: Gen: Vitals noted. No acute distress. Eyes: anicteric sclerae, moist conjunctivae; no lid-lag; Pupils equal and reactive to light HENT: Atraumatic; oropharynx clear with moist mucous membranes and no mucosal ulcerations; normal hard and soft palate Neck: Trachea midline; supple, no thyromegaly or lymphadenopathy Cardiac: RRR, no murmur, +S1/S2 Pulmonary: B/L lower lobe crackles with right middle lobe crackles and some egophany present Abdomen: soft, nontender, no guarding. No masses or hepatosplenomegaly MSK: ROM intact, no joint swelling noted Extremities: trace BLE edema, nontender calf, no cyanosis or clubbing. Skin: Normal temperature, turgor and texture; no rash, ulcers or subcutaneous nodules. Presence of chronic well healing rash on b/l LE Psych: Depressed mood, admits to of son about 6 months ago. A&Ox3 Internal Med - H&P Results - Labs CBC & Chem 7: 09/01/19 07:50 09/01/19 07:59 Labs: Short CBC 09/01/19 Range/Units 07:50 WBC 9.6 (4.3-11.1) K/mcL Hgb 11.8 (11.5-15.4) g/dL Hct 38.0 (35.3-44.9) % Plt Count 322 (140-400) K/mcL Neutrophils # 7.2 (1.6-8.9) K/mcL BMP 09/01/19 07:59 Sodium 139 Potassium 3.4 L Chloride 109 H Carbon Dioxide 25 BUN 15 Creatinine 0.83 Glucose 222 H Calcium 8.7 Cardiac Enzymes 09/01/19 Range/Units 07:59 Troponin I < 0.03 (< 0.04) ng/mL - Impressions ITS Impressions Chest X-Ray 09/01/19 08:17 IMPRESSION: Patchy bilateral lower lobe airspace opacities, nonspecific. This could represent atelectasis or evolving pneumonia. Follow up PA and lateral chest recommended to assure resolution. D/ / 09/01/2019 09:06:30 Eddie Tavarez MD / jean Interpreting Provider: Eddie Tavarez MD Hip/Pelvis X-Ray 09/01/19 08:18 IMPRESSION: No acute abnormality in the pelvis or either hip. D/ / Carlos Manuel Morales MD / Carlos Manuel Morales MD Interpreting Provider: Carlos Manuel Morales MD Head CT 09/01/19 08:33 IMPRESSION: No acute intracranial abnormality. D/ / Eddie Tavarez MD / Eddie Tavarez MD Interpreting Provider: Eddie Tavarez MD Cervical Spine CT 09/01/19 08:45 IMPRESSION: No acute abnormality of the cervical spine. D/ / Carlos Manuel Morales MD / Carlos Manuel Morales MD Interpreting Provider: Carlos Manuel Morales MD - Assessment and Plan (1) COPD (chronic obstructive pulmonary disease) Current Visit: Yes Status: Acute Assessment and plan: Acute COPD Exacerbation Patient admits to Cough with sputum production for several days Likely explains acute weakness, unclear whether underlying PNA as well At this time, will continue home O2 Start Prednisone PO 40mg, Azithromycin Duonebs PRN Qualifiers: COPD type: COPD with acute exacerbation Qualified Code(s): J44.1 - Chronic obstructive pulmonary disease with (acute) exacerbation (2) Fall Current Visit: Yes Status: Acute Assessment and plan: Fall in setting of acute illness + weakness Patient has history of dermatomysitis, on mycophenalate Muscle enzymes are normal, CT Head/C-Spine normal Spoke with Dr. Moreno, do not suspect acute flare of dermatomyositis The patient will be on prednisone for COPD Exacerbation regardless PT/OT to see patient Fall precautions Qualifiers: Encounter type: initial encounter Qualified Code(s): W19.XXXA - Unspecified fall, initial encounter (3) Dermatomyositis Current Visit: No Status: Chronic Assessment and plan: Chronic, on Cellcept Spoke with mixing tumbler operator, not concerned that this is acute flare without amarjit dence of muscle enzyme elevation Will check ESR/CRP, aldolase, LDH Continue home med Patient will be on prednisone for COPD Consider rheum consult if worsens (4) Atrial fibrillation Current Visit: No Status: Chronic Assessment and plan: PAF, currently in sinus On eliquis. Continue home meds Qualifiers: Atrial fibrillation type: paroxysmal Qualified Code(s): I48.0 - Paroxysmal atrial fibrillation (5) Essential hypertension Current Visit: No Status: Chronic Assessment and plan: Stable, will resume home meds when confirmed (6) Weakness Current Visit: Yes Status: Acute Assessment and plan: Weakness in setting of COPD exacerbation According to mixing tumbler operator, patient also has chronic deconditioning Will have PT/OT consult (7) Hypokalemia Current Visit: Yes Status: Acute Assessment and plan: Replete potassium prn, recheck in am (8) Diabetes mellitus Current Visit: No Status: Chronic Assessment and plan: DM2, currently with hyperglycemia Hold PO meds, start basal insulin and SSI while inpatient Qualifiers: Diabetes mellitus type: type 2 Diabetes mellitus mcc insulin use: unspecified buttermilk drier operator insulin use status Diabetes mellitus complication status: with hyperglycemia Qualified Code(s): E11.65 - Type 2 diabetes mellitus with hyperglycemia - Time Spent With Patient Total time spent is greater than 50% in coordination of care (as documented) at patient's floor/unit and/or counseling patient: <Nehal Gaspar - Last Filed: 09/01/19 12:15> Date of Encounter: 09/01/19 Time of Encounter: 11:00 Internal Medicine - H&P: HPI History of present illness: Ms. Boyce is a 64 year old female All Systems PM: A 10-system review of systems was performed and is negative for pertinent findings except as documented above in the HPI. - Constitutional Vitals: Temp Pulse Resp BP Pulse Ox 97.6 F 82 16 140/82 100 09/01/19 11:10 09/01/19 11:10 09/01/19 11:10 09/01/19 11:10 09/01/19 11:10 Internal Med - H&P Results - Labs CBC & Chem 7: 09/01/19 07:50 09/01/19 07:59 Labs: Short CBC 09/01/19 Range/Units 07:50 WBC 9.6 (4.3-11.1) K/mcL Hgb 11.8 (11.5-15.4) g/dL Hct 38.0 (35.3-44.9) % Plt Count 322 (140-400) K/mcL Neutrophils # 7.2 (1.6-8.9) K/mcL BMP 09/01/19 07:59 Sodium 139 Potassium 3.4 L Chloride 109 H Carbon Dioxide 25 BUN 15 Creatinine 0.83 Glucose 222 H Calcium 8.7 Cardiac Enzymes 09/01/19 Range/Units 07:59 Troponin I < 0.03 (< 0.04) ng/mL - Impressions ITS Impressions Chest X-Ray 09/01/19 08:17 IMPRESSION: Patchy bilateral lower lobe airspace opacities, nonspecific. This could represent atelectasis or evolving pneumonia. Follow up PA and lateral chest recommended to assure resolution. D/ / 09/01/2019 09:06:30 Eddie Tavarez MD / jean Interpreting Provider: Eddie Tavarez MD Hip/Pelvis X-Ray 09/01/19 08:18 IMPRESSION: No acute abnormality in the pelvis or either hip. D/ / Carlos Manuel Morales MD / Carlos Manuel Morales MD Interpreting Provider: Carlos Manuel Morales MD Head CT 09/01/19 08:33 IMPRESSION: No acute intracranial abnormality. D/ / Eddie Tavarez MD / Eddie Tavarez MD Interpreting Provider: Eddie Tavarez MD Cervical Spine CT 09/01/19 08:45 IMPRESSION: No acute abnormality of the cervical spine. D/ / Carlos Manuel Morales MD / Carlos Manuel Morales MD Interpreting Provider: Carlos Manuel Morales MD - Time Spent With Patient Total time spent is greater than 50% in coordination of care (as documented) at patient's floor/unit and/or counseling patient: - Attending Attestation I saw evaluated and examined this patient and reviewed past medical, family, social histories and objective data including labs and my medical decision- making was reviewed with the Resident Physician, Amari Jacques. I agree with the documented findings, disposition and treatment plan as described except to any changes set forth below. We independently had [id number] contact with the patient. Patient with a history of dermatomyositis, COPD, diabetes, peripheral neuropathy, hypertension and hyperlipidemia presented to the ER with complaints of dizziness and feeling weak. She also fell while walking into the shower this morning. She states that she was on the ground until the paramedics arrived to help her. She is in remission for her dermatomyositis and takes CellCept. She denies any chest pain but has been having some cough with scant sputum production. She does have chronic respiratory failure and is on oxygen at 2 L/m at home. On exam, she does have lower extremity weakness although this is not persistent. S1 and S2 are normal. Mild end expiratory wheezing and prolonged expiratory phase. Chest x-ray showed basilar atelectasis or pneumonia. Will place patient in the hospital for observation for generalized weakness and COPD exacerbation. Check pro calcitonin level. Discussed with rheumatology. Do not recommend additional intervention for her dermatomyositis. Check urinalysis. Supportive care. Physical therapy evaluation and renal social worker consult for potential placement to skilled rehabilitation. Patient's CODE STATUS is DNR CC arrest.
[2019-09-01] MEDS ORDERED: Naloxone 0.4 MG/ML INJ IVP PRN (10:55)
[2019-09-01] MEDS ORDERED: Dextrose Gel 15 GM/37.5 ML TUBE PO PRN ×2 (10:57)
[2019-09-01] MEDS ORDERED: *HR* Dextrose 50 % in Water (Syg) 50 ML SYRINGE IVP PRN (10:57)
[2019-09-01] MEDS ORDERED: D5% in Water 1,000 ML IVC PRN (10:57)
[2019-09-01] MEDS ORDERED: Ipratropium/Albuterol Neb 3 ML IH PRN (11:32)
[2019-09-01] MEDS: *HR* HYDROcodone/Acet 5/325 mg TABLET PO PRN ×2 (12:47→22:43)
[2019-09-01] MEDS: Insulin LISPRO 300 UNITS/3 ML VIAL SQ SCH ×3 (12:52→23:03)
[2019-09-01] MEDS: Azithromycin 500 MG in 0.9 % Sodium Chloride 250 ML IVPB SCH (12:52)
[2019-09-01] MEDS: predniSONE 20 MG TABLET PO SCH (13:06)
--- NOTE | 2019-09-01 14:58 | Electrocardiograph Report ---
[address] [address] Test Date: 2019-09-01 Pat Name: Katelyn Boyce Department: [id number] Room: 3B13 Gender: F Sanitation Lead: : 1955 Requested By: Trell Guerra Order Number: [id number] Reading MD: Emir Hall Measurements Intervals [place] Rate: 79 P: [place]: QRS: -60 QRSD: 121 T: -22 QT: 427 QTc: 490 Interpretive Statements Artifacts IVCD, consider atypical RBBB Inferior infarct, age indeterminate Anterolateral infarct, age indeterminate Electronically Signed On 09-01-2019 14:57:09 EDT by Emir Hall
[2019-09-01] MEDS: Ipratropium/Albuterol Neb 3 ML IH SCH ×3 (15:35→20:11)
[2019-09-01 18:11] LABS: Bilirubin,Urine Negative (Negative); Blood,Urine Negative (Negative); Clarity,Urine Clear (Clear); Color,Urine Yellow (Yellow); Glucose,Urine (UA) 250 mg/dL (Normal); Ketones,Urine Negative (Negative); Leukocyte Esterase,Urine Negative (Negative); Nitrite,Urine Negative (Negative); PH,Urine 6.5 pH Units (5.0-8.0); Protein,Urine Negative (Neg-Trace); Specific Gravity,Urine 1.016 (1.010-1.025); Urobilinogen,Urine Normal (Normal)
[2019-09-01] MEDS: Pregabalin 75 MG CAPSULE PO SCH (22:43)
[2019-09-01] MEDS: Metoprolol 100 MG TABLET PO SCH (22:43)
[2019-09-01] MEDS: Apixaban 5 MG TABLET PO SCH (22:44)
[2019-09-01] MEDS: Insulin DETEMIR 100 UNIT/ML X5UNITS SQ SCH (23:00)
[2019-09-02] MEDS: Ipratropium/Albuterol Neb 3 ML IH SCH ×7 (00:24→23:42)
[2019-09-02 01:14] LABS: Basophils % 0.2 %; Hematocrit 37.1 % (35.3-44.9); Hemoglobin 11.8 g/dL (11.5-15.4); Immature Granulocytes % 0.4 % (0-4); Lymphocytes # 0.7 K/mcL (0.6-4.6); Lymphocytes % 8.5 %; Mean Corpuscular HGB Conc 31.8 g/dL (31.6-35.5); Mean Corpuscular Hemoglobin 30.1 pg (28.0-33.3); Mean Corpuscular Volume 94.6 fL (83.0-100.0); Mean Platelet Volume 10.4 fL (9.4-12.4); Monocytes # 0.1 K/mcL (0.0-1.3); Monocytes % 1.2 %; Neutrophils # 7.5 K/mcL (1.6-8.9); Platelet Count 306 K/mcL (140-400); Red Blood Count 3.92 M/mcL (3.82-4.97); Red Cell Distribution Width 13.1 % (11.5-14.5); Segmented Neutrophils % 89.7 %; White Blood Count 8.4 K/mcL (4.3-11.1)
[2019-09-02 01:23] LABS: BUN/Creatinine Ratio 18 (6-26); Blood Urea Nitrogen 14 mg/dL (8-23); Carbon Dioxide 23 mEq/L (23-29); Chloride 107 mEq/L (98-107); Glucose 303 mg/dL (70-105); Magnesium 1.4 mg/dL (1.6-2.6); Osmolality,Calculated 300 (280-300); Sodium 139 mEq/L (136-145); eGFR For African Americans > 60 (> 60); eGFR For Non-African Americans > 60 (> 60)
[2019-09-02] MEDS ORDERED: *HR* HYDROcodone/Acet 10/325 mg TABLET PO PRN (07:34)
[2019-09-02] MEDS: Lisinopril 20 MG TABLET PO SCH (08:24)
[2019-09-02] MEDS: Metoprolol 100 MG TABLET PO SCH ×2 (08:24→21:27)
[2019-09-02] MEDS: *HR* HYDROcodone/Acet 5/325 mg TABLET PO PRN ×2 (08:25→17:53)
[2019-09-02] MEDS: Aspirin Enteric Coated 81 MG Tablet PO SCH (08:25)
[2019-09-02] MEDS: Pregabalin 75 MG CAPSULE PO SCH ×2 (08:25→21:27)
[2019-09-02] MEDS: NIFEdipine XL (24 HR) 30 MG TAB.ER.24 PO SCH (08:25)
[2019-09-02] MEDS: predniSONE 20 MG TABLET PO SCH (08:26)
[2019-09-02] MEDS: Apixaban 5 MG TABLET PO SCH ×2 (08:27→21:28)
[2019-09-02] MEDS: Insulin LISPRO 300 UNITS/3 ML VIAL SQ SCH ×4 (08:27→21:28)
[2019-09-02] MEDS ORDERED: *HR* Glimepiride 4 MG TABLET PO SCH (09:00)
--- NOTE | 2019-09-02 09:53 | Internal Med Progress Note ---
Hospitalist Progress Note - Encounter Date of Encounter: 09/02/19 Time of Encounter: 09:47 - Subjective Interval History: Ms. Boyce is a 64 year old female with history of dematomyocitis, COPD, diabetes mellitus, GERD, hyperlipidemia, hypertension who presented to the ED following a fall event at her house and this morning. 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 She uses a walker at home. She also reported associated cough with greenish mucus, chills, and mild shortness of breath. In the ED, the patient had CT of the head, cervical spine which were negative for any findings. She also had x-rays of the hip and pelvis which did not demonstrate any fractures. She did have an x-ray of the chest which showed bilateral patchy opacities concerning for pneumonia vs atelectasis. The patient is being admitted to the hospital for further workup of acute weakness, fall, and cough. She was started on oral steroids, IV antibiotics with azithromycin, and bronchodilators. PT/OT were consulted. Further labs showed normal ESR/CRP/CK, the likelihood of dermatomyositis flareup is low. Patient seen and examined in the room, she reported severe pain on both legs, she takes hydrocodone and Lyrica at home, she also reported bilateral leg weakness which was at her baseline. She reported absence of fever, chills, or night sweats overnight. She did endorsed cough with mucus production and mild shortness of breath, but denies fever, chest pain, or palpitation. - Exam Vitals: Temp Pulse Resp BP Pulse Ox 98.1 F 87 15 170/93 100 09/02/19 06:51 09/02/19 06:51 09/02/19 07:27 09/02/19 06:51 09/02/19 07:27 Exam: Gen: Vitals noted. No acute distress. Eyes: anicteric sclerae, moist conjunctivae; no lid-lag; Pupils equal and reactive to light HENT: Atraumatic; oropharynx clear with moist mucous membranes and no mucosal ulcerations; normal hard and soft palate Neck: Trachea midline; supple, no thyromegaly or lymphadenopathy Cardiac: RRR, no murmur, +S1/S2 Pulmonary: B/L lower lobe crackles with right middle lobe crackles and some egophany present Abdomen: soft, nontender, no guarding. No masses or hepatosplenomegaly MSK: ROM intact, no joint swelling noted Extremities: trace BLE edema, nontender calf, no cyanosis or clubbing. Skin: Normal temperature, turgor and texture; no rash, ulcers or subcutaneous nodules. Presence of chronic well healing rash on b/l LE Psych: Depressed mood, admits to of son about 6 months ago. A&Ox3 - Assessment and Plan (1) Fall Current Visit: Yes Status: Acute Assessment and Plan: 64-year-old female with history of bilateral weakness and frequent falls presented another episode of fall at home. Skeletal screening was negative for fracture including cervical spine CT, x-ray for hip and pelvis, chest x-ray, and CT head. EKG has no acute ST-T change, patient denies chest pain, palpitation, or lightheadedness during the fall. Chest x-ray showed a possible bilateral pneumonia, in conjunction with patient symptoms including mild shortness of breath and cough with mucus production, pneumonia was suspected, patient was started on IV antibiotics with azithromycin. PT/OT consulted. (2) COPD (chronic obstructive pulmonary disease) Current Visit: Yes Status: Acute Assessment and Plan: Patient had a history of COPD, her symptoms is suggestive for COPD exacerbation likely secondary to pneumonia. Were continue IV antibiotics, stable up COPD treatment with oral steroids and a short-acting bronchodilators in addition to home medications. Continue monitoring patient's symptoms. (3) Pneumonia Current Visit: Yes Status: Acute Assessment and Plan: Chest x-ray showed a possible pneumonia. Pending blood culture, sputum culture, and respiratory panel. Patient had a very mild respiratory symptoms, WBC normal, afebrile, will continue IV of azithromycin at this point, may upgrade treatment if indicated. (4) Weakness Current Visit: No Status: Chronic Assessment and Plan: she had chronic bilateral weakness secondary to dermatomyositis, weakness currently is at her baseline. PT/OT consult, appreciate help. (5) Status post total replacement of right shoulder Current Visit: No Status: Chronic Assessment and Plan: Right upper arm weakness secondary to recent right shoulder surgery. PT/OT following. (6) Diabetes mellitus Current Visit: No Status: Chronic Assessment and Plan: Started patient on insulin sliding scale. (7) Hypertension Current Visit: No Status: Chronic Assessment and Plan: Continue monitoring BP, continue home medications, hydralazine IV as needed. (8) Dyslipidemia Current Visit: No Status: Chronic Assessment and Plan: Continue home medications. (9) Obesity (BMI 30-39.9) Current Visit: No Status: Chronic Assessment and Plan: Weight control discussed with patient. (10) DVT prophylaxis Current Visit: No Status: Resolved Assessment and Plan: Heparin subcutaneous. - Time Spent with Patient Total time spent is greater than 50% in coordination of care (as documented) at patient's floor/unit and/or counseling patient: Greater than 35 minutes Plan of Care Discussed with: patient Internal Medicine: Result - Labs CBC & Chem 7: 09/02/19 00:25 09/02/19 00:25 Labs: Short CBC 09/02/19 Range/Units 00:25 WBC 8.4 (4.3-11.1) K/mcL Hgb 11.8 (11.5-15.4) g/dL Hct 37.1 (35.3-44.9) % Plt Count 306 (140-400) K/mcL Neutrophils # 7.5 (1.6-8.9) K/mcL BMP 09/02/19 00:25 Sodium 139 Potassium 4.0 Chloride 107 Carbon Dioxide 23 BUN 14 Creatinine 0.80 Glucose 303 H Calcium 9.0 Urine 09/01/19 Range/Units 17:45 Urine Color Yellow (Yellow) Urine Clarity Clear (Clear) Urine pH 6.5 (5.0-8.0) pH Units Ur Specific [place] 1.016 (1.010-1.025) Urine Protein Negative (Neg-Trace) mg/dL Urine Glucose (UA) 250 H (Normal) mg/dL - Impressions Impressions Chest X-Ray 09/01/19 08:17 IMPRESSION: Patchy bilateral lower lobe airspace opacities, nonspecific. This could represent atelectasis or evolving pneumonia. Follow up PA and lateral chest recommended to assure resolution. D/ / 09/01/2019 09:06:30 Eddie Tavarez MD / jean Interpreting Provider: Eddie Tavarez MD Consult Discharge Plan - Plan Referrals: Gaurav Thomas MD [Primary Care Provider] - (1) Fall Qualifiers: Encounter type: initial encounter Qualified Code(s): W19.XXXA - Unspecified fall, initial encounter (2) COPD (chronic obstructive pulmonary disease) Qualifiers: COPD type: COPD with acute exacerbation Qualified Code(s): J44.1 - Chronic obstructive pulmonary disease with (acute) exacerbation (3) Pneumonia Qualifiers: Pneumonia type: due to unspecified organism Laterality: unspecified laterality Lung location: unspecified part of lung Qualified Code(s): J18.9 - Pneumonia, unspecified organism (6) Diabetes mellitus Qualifiers: Diabetes mellitus type: type 2 Diabetes mellitus longterm insulin use: unspecified longterm insulin use status Diabetes mellitus complication status: with hyperglycemia Qualified Code(s): E11.65 - Type 2 diabetes mellitus with hyperglycemia (7) Hypertension Qualifiers: Hypertension type: unspecified secondary hypertension Qualified Code(s): I15.9 - Secondary hypertension, unspecified; I15 - Secondary hypertension
[2019-09-02] MEDS: Budesonide/Formoterol 80/4.5 1 PUFF INH IH SCH ×2 (11:04→19:47)
[2019-09-02] MEDS: Azithromycin 500 MG in 0.9 % Sodium Chloride 250 ML IVPB SCH (14:42)
[2019-09-02] MEDS: *HR* LORazepam 1 MG TABLET PO PRN ×2 (14:42→22:49)
[2019-09-02] MEDS: Magnesium Oxide 400 MG TABLET PO SCH ×2 (14:42→21:28)
[2019-09-02] MEDS: *HR* Heparin 5,000 UNIT/ML VIAL SQ SCH (17:47)
[2019-09-02] MEDS: Insulin DETEMIR 100 UNIT/ML X5UNITS SQ SCH (21:28)
[2019-09-03] MEDS: Ipratropium/Albuterol Neb 3 ML IH SCH ×2 (03:47→07:58)
[2019-09-03 04:43] LABS: Hematocrit 37.6 % (35.3-44.9); Hemoglobin 11.5 g/dL (11.5-15.4); Mean Corpuscular HGB Conc 30.6 g/dL (31.6-35.5); Mean Corpuscular Hemoglobin 29.2 pg (28.0-33.3); Mean Corpuscular Volume 95.4 fL (83.0-100.0); Mean Platelet Volume 10.6 fL (9.4-12.4); Platelet Count 330 K/mcL (140-400); Red Blood Count 3.94 M/mcL (3.82-4.97); Red Cell Distribution Width 13.1 % (11.5-14.5); White Blood Count 10.4 K/mcL (4.3-11.1)
[2019-09-03 05:05] LABS: BUN/Creatinine Ratio 24 (6-26); Blood Urea Nitrogen 23 mg/dL (8-23); Calcium 9.8 mg/dL (8.6-10.3); Carbon Dioxide 29 mEq/L (23-29); Chloride 103 mEq/L (98-107); Glucose 173 mg/dL (70-105); Magnesium 1.9 mg/dL (1.6-2.6); Osmolality,Calculated 298 (280-300); Sodium 140 mEq/L (136-145); eGFR For African Americans > 60 (> 60); eGFR For Non-African Americans > 60 (> 60)
[2019-09-03] MEDS: *HR* Heparin 5,000 UNIT/ML VIAL SQ SCH (05:37)
[2019-09-03] MEDS: Budesonide/Formoterol 80/4.5 1 PUFF INH IH SCH (07:58)
[2019-09-03 07:59] VITALS: BP 146/81
[2019-09-03] MEDS: Insulin LISPRO 300 UNITS/3 ML VIAL SQ SCH (08:42)
[2019-09-03] MEDS ORDERED: Azithromycin 250 MG TABLET PO SCH (09:00)
[2019-09-03] MEDS: NIFEdipine XL (24 HR) 30 MG TAB.ER.24 PO SCH (09:30)
[2019-09-03] MEDS: Pregabalin 75 MG CAPSULE PO SCH (09:30)
[2019-09-03] MEDS: Magnesium Oxide 400 MG TABLET PO SCH (09:31)
[2019-09-03] MEDS: Metoprolol 100 MG TABLET PO SCH (09:31)
[2019-09-03] MEDS: predniSONE 20 MG TABLET PO SCH (09:31)
[2019-09-03] MEDS: Apixaban 5 MG TABLET PO SCH (09:31)
[2019-09-03] MEDS: Aspirin Enteric Coated 81 MG Tablet PO SCH (09:31)
[2019-09-03] MEDS: Lisinopril 20 MG TABLET PO SCH (09:31)
--- NOTE | 2019-09-03 09:46 | Physician Discharge Referral ---
Home Health/Hosp Referral Info Transfer to: Home Health Provider in Charge Post Discharge: PCP - Diagnosis (1) Fall Priority: Primary Status: Acute (2) COPD (chronic obstructive pulmonary disease) Priority: Secondary Status: Chronic (3) Pneumonia Priority: Primary Status: Acute (4) Weakness Priority: Primary Status: Chronic (5) Status post total replacement of right shoulder Priority: Secondary Status: Chronic (6) Diabetes mellitus Priority: Secondary Status: Chronic (7) Hypertension Priority: Secondary Status: Chronic (8) Dyslipidemia Priority: Secondary Status: Chronic (9) Obesity (BMI 30-39.9) Priority: Secondary Status: Chronic (10) DVT prophylaxis Priority: Primary Status: Resolved - Respiratory Orders Smoking Cessation: Smoking cessation has been advised. For more information, call the [place] Tobacco Quit Line at 9-661-PXEL-NOW. - Services Needed Following services are medically necessary services: Nursing, Home Health Aide, Physical Therapy, Occupational Therapy - Transfer Medications Home Medications: Amitriptyline [Elavil] 25 mg PO HS 05/14/19 [History] Apixaban [Eliquis] 5 mg PO BID 05/14/19 [History] Aspirin [Lo-Dose Aspirin EC] 81 mg PO DAILY 05/14/19 [History] Atorvastatin Calcium [Lipitor] 20 mg PO HS 05/14/19 [History] Glimepiride [Amaryl] 4 mg PO DAILY 05/14/19 [History] HYDROcodone/Acet 10/325 mg [Eva 10-325 mg] 1 tab PO Q6H PRN 05/14/19 [History] Lisinopril [Zestril] 20 mg PO DAILY 05/14/19 [History] Metoprolol Tartrate 100 mg PO BID 05/14/19 [History] Mycophenolate Mofetil [Cellcept] 500 mg PO BID 05/14/19 [History] Potassium Chloride [K-Tab ER] 20 meq PO DAILY 05/14/19 [History] Albuterol Sulfate [Ventolin Hfa] 2 puff IH Q4H PRN 09/01/19 [History] Budesonide/Formoterol 80/4.5 [Symbicort 80/4.5] 2 puff IH BID 09/01/19 [History] Ergocalciferol (VITAMIN D2) [Vitamin D2] 50,000 unit PO MO 09/01/19 [History] Esomeprazole Magnesium [Nexium] 40 mg PO DAILY 09/01/19 [History] LORazepam [Lorazepam] 2 mg PO Q6H PRN 09/01/19 [History] NIFEdipine [Nifedipine ER] 90 mg PO DAILY 09/01/19 [History] Pregabalin [Lyrica] 150 mg PO BID 09/01/19 [History] Sitagliptin Phos/Metformin HCl [Janumet 50-1,000 mg Tablet] 1 tab PO BID 09/01/19 [History] Allergies/Adverse Reactions: Allergy/AdvReac Type Severity Reaction Status Date / Time No Known Allergies Allergy Verified 05/14/19 12:03 Certification: Further, I certify that my clinical findings support that this patient is homebound (i.e. absences from home require considerable and taxing effort and are for medical reasons or anabaptism services or infrequently or short duration when for other reasons) because: Homebound Reason: Patient requires assistance of a person or device to safely leave home Attestation: My signature below is to certify that this patient is under my care and that I, or nurse practitioner, or a physician's water quality assistant working with me, has a [id number] encounter with this patient.
--- NOTE | 2019-09-03 09:51 | Discharge Summary ---
- NOTES TO OUTPATIENT PROVIDER Notes to Outpatient Provider: f/u with PCP within 2 weeks. Orders not resulted at time of discharge: Pending orders 09/01/19 13:11 Aldolase, Serum Routine 09/03/19 09:33 MRSA Surveillance Screen [MOLMIC] Stat Date of Encounter: 09/03/19 Time of Encounter: 09:46 - Discharge Diagnosis (1) Fall Priority: Primary Status: Acute Qualifiers: Encounter type: initial encounter Qualified Code(s): W19.XXXA - Unspecified fall, initial encounter (2) COPD (chronic obstructive pulmonary disease) Priority: Secondary Status: Chronic Qualifiers: COPD type: COPD with acute exacerbation Qualified Code(s): J44.1 - Chronic obstructive pulmonary disease with (acute) exacerbation (3) Pneumonia Priority: Primary Status: Acute Qualifiers: Pneumonia type: due to unspecified organism Laterality: unspecified laterality Lung location: unspecified part of lung Qualified Code(s): J18.9 - Pneumonia, unspecified organism (4) Weakness Priority: Primary Status: Acute (5) Status post total replacement of right shoulder Priority: Secondary Status: Chronic (6) Diabetes mellitus Priority: Secondary Status: Chronic Qualifiers: Diabetes mellitus type: type 2 Diabetes mellitus usp insulin use: unspecified usp insulin use status Diabetes mellitus complication status: with hyperglycemia Qualified Code(s): E11.65 - Type 2 diabetes mellitus with hyperglycemia (7) Hypertension Priority: Secondary Status: Chronic Qualifiers: Hypertension type: unspecified secondary hypertension Qualified Code(s): I15.9 - Secondary hypertension, unspecified; I15 - Secondary hypertension (8) Dyslipidemia Priority: Secondary Status: Chronic (9) Obesity (BMI 30-39.9) Priority: Secondary Status: Chronic (10) DVT prophylaxis Priority: Primary Status: Resolved Hospital course: Ms. Boyce is a 64 year old female with history of dematomyocitis, COPD, diabetes mellitus, GERD, hyperlipidemia, hypertension who presented to the ED following a fall event at her house and this morning. 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 She uses a walker at home. She also reported associated cough with greenish mucus, chills, and mild shortness of breath. In the ED, the patient had CT of the head, cervical spine which were negative for any findings. She also had x-rays of the hip and pelvis which did not demonstrate any fractures. She did have an x-ray of the chest which showed bilateral patchy opacities concerning for pneumonia vs atelectasis. The patient is being admitted to the hospital for further workup of acute weakness, fall, and cough. She was started on oral steroids, IV antibiotics with azithromycin, and bronchodilators. PT/OT were consulted. Further labs showed normal ESR/CRP/CK, the likelihood of dermatomyositis flareup is low.With 3 days of treatment, she leg weakness, cough, and leg pain improved. IV abx changed to oral azithromysin, steroid dc'ed. She does not have respiratory distress, and she uses O2 at home. Pt is discharged home, continue home health, continue oral abx as prescribed, f/u with PCP within 2 weeks. Discharge discussed with: patient Time spent discussing smoking cessation with patient: more than 10 minutes - Time Spent with Patient Total time spent providing and/or coordinating discharge services: Time spent: Greater than 30 minutes - Discharge Medications Prescriptions: New Azithromycin [Zithromax] 250 mg PO DAILY #4 tablet Continued Amitriptyline [Elavil] 25 mg PO HS Apixaban [Eliquis] 5 mg PO BID Atorvastatin Calcium [Lipitor] 20 mg PO HS Glimepiride [Amaryl] 4 mg PO DAILY HYDROcodone/Acet 10/325 mg [[place] 10-325 mg] 1 tab PO Q6H PRN PRN Reason: Mild To Moderate Pain Metoprolol Tartrate 100 mg PO BID Mycophenolate Mofetil [Cellcept] 500 mg PO BID Potassium Chloride [K-Tab ER] 20 meq PO DAILY Aspirin [Lo-Dose Aspirin EC] 81 mg PO DAILY Lisinopril [Zestril] 20 mg PO DAILY Albuterol Sulfate [Ventolin Hfa] 2 puff IH Q4H PRN PRN Reason: Shortness Of Breath Budesonide/Formoterol 80/4.5 [Symbicort 80/4.5] 2 puff IH BID Ergocalciferol (VITAMIN D2) [Vitamin D2] 50,000 unit PO MO Esomeprazole Magnesium [Nexium] 40 mg PO DAILY LORazepam [Lorazepam] 2 mg PO Q6H PRN PRN Reason: Anxiety NIFEdipine [Nifedipine ER] 90 mg PO DAILY Sitagliptin Phos/Metformin HCl [Janumet 50-1,000 mg Tablet] 1 tab PO BID Pregabalin [Lyrica] 150 mg PO BID Home Medications: Amitriptyline [Elavil] 25 mg PO HS 05/14/19 [History] Apixaban [Eliquis] 5 mg PO BID 05/14/19 [History] Aspirin [Lo-Dose Aspirin EC] 81 mg PO DAILY 05/14/19 [History] Atorvastatin Calcium [Lipitor] 20 mg PO HS 05/14/19 [History] Glimepiride [Amaryl] 4 mg PO DAILY 05/14/19 [History] HYDROcodone/Acet 10/325 mg [[place] 10-325 mg] 1 tab PO Q6H PRN 05/14/19 [History] Lisinopril [Zestril] 20 mg PO DAILY 05/14/19 [History] Metoprolol Tartrate 100 mg PO BID 05/14/19 [History] Mycophenolate Mofetil [Cellcept] 500 mg PO BID 05/14/19 [History] Potassium Chloride [K-Tab ER] 20 meq PO DAILY 05/14/19 [History] Albuterol Sulfate [Ventolin Hfa] 2 puff IH Q4H PRN 09/01/19 [History] Budesonide/Formoterol 80/4.5 [Symbicort 80/4.5] 2 puff IH BID 09/01/19 [History] Ergocalciferol (VITAMIN D2) [Vitamin D2] 50,000 unit PO MO 09/01/19 [History] Esomeprazole Magnesium [Nexium] 40 mg PO DAILY 09/01/19 [History] LORazepam [Lorazepam] 2 mg PO Q6H PRN 09/01/19 [History] NIFEdipine [Nifedipine ER] 90 mg PO DAILY 09/01/19 [History] Pregabalin [Lyrica] 150 mg PO BID 09/01/19 [History] Sitagliptin Phos/Metformin HCl [Janumet 50-1,000 mg Tablet] 1 tab PO BID 09/01/19 [History] Azithromycin [Zithromax] 250 mg PO DAILY #4 tablet 09/03/19 [Rx] Allergies/Adverse Reactions: Allergy/AdvReac Type Severity Reaction Status Date / Time No Known Allergies Allergy Verified 05/14/19 12:03 Date of admission: 09/01/19 10:05 Primary care physician: Gaurav Thomas MD Consults: 09/01/19 11:19 Consult to Occupational Therapy [CONS] Routine Comment: Evaluate, develop and implement POC Reason for Consult: Weakness and fall Does patient have active BEDREST order?: No Is patient medically & hemodynamically stable?: Yes Consult to Physical Therapy [CONS] Routine Comment: Evaluate, develop and implement POC Reason for Consult: weakness, fall Does patient have active BEDREST order?: No Is patient medically & hemodynamically stable?: Yes 09/01/19 11:21 Consult to Senior It Architect [CONS] Routine Reason for SW Consult: Home health vs ecf 09/02/19 09:15 Consult to Nurse Navigator [CONS] Routine Comment: COPD Anticipated date of discharge: 09/03/19 - Constitutional Vitals: Temp Pulse Resp BP Pulse Ox 97.8 F 71 16 146/81 96 09/03/19 07:52 09/03/19 07:52 09/03/19 07:58 09/03/19 07:52 09/03/19 07:58 General appearance: Present: A&O X 3 Exam: Gen: Vitals noted. No acute distress. Eyes: anicteric sclerae, moist conjunctivae; no lid-lag; Pupils equal and reactive to light HENT: Atraumatic; oropharynx clear with moist mucous membranes and no mucosal ulcerations; normal hard and soft palate Neck: Trachea midline; supple, no thyromegaly or lymphadenopathy Cardiac: RRR, no murmur, +S1/S2 Pulmonary: B/L lower lobe crackles with right middle lobe crackles and some egophany present Abdomen: soft, nontender, no guarding. No masses or hepatosplenomegaly MSK: ROM intact, no joint swelling noted Extremities: trace BLE edema, nontender calf, no cyanosis or clubbing. Skin: Normal temperature, turgor and texture; no rash, ulcers or subcutaneous nodules. Presence of chronic well healing rash on b/l LE Psych: Depressed mood, admits to of son about 6 months ago. A&Ox3 - Patient Status Disposition: Home Health Service Condition: Fair Functional capacity at discharge: uses cane/walker Overall status at discharge: patient is progressing back to baseline - Discharge Instructions Follow Up With: Gaurav Thomas MD [Primary Care Provider] - 09/13/19 1:15 pm Forms: ED Satisfaction Letter - Diet and Activity Activity: increase activity as tolerated Diet: diabetic diet, low fat, low cholesterol, low salt diet
[2019-09-06] MEDS ORDERED: Ergocalciferol (VIT D2) 50,000 UNIT (1.25MG) CAP PO SCH (07:34)
== END 2019-09-03 11:18 | disposition home health service (06) ==
LOC: 3BNU 07:34 → EMEROOARM 07:34 → 3BNU 10:50
PROVIDERS: ADMIT Internal Medicine; ATTEND Internal Medicine

== ENCOUNTER 2019-11-14 11:51 | Inpatient (IN) ==
[2019-11-14] MEDS ORDERED: 0.9 % Sodium Chloride 1,000 ML IVC ONE (12:04)
[2019-11-14] MEDS ORDERED: Ondansetron 4 MG/2 ML VIAL IVP ONE (12:04)
[2019-11-14 12:56] LABS: Basophils # 0.1 K/mcL (0.0-0.2); Basophils % 0.3 %; Eosinophils # 0.1 K/mcL (0.0-0.6); Eosinophils % 0.6 %; Hematocrit 38.2 % (35.3-44.9); Immature Granulocytes % 0.8 % (0-4); Lymphocytes # 1.4 K/mcL (0.6-4.6); Lymphocytes % 8.2 %; Mean Corpuscular HGB Conc 31.4 g/dL (31.6-35.5); Mean Corpuscular Hemoglobin 29.7 pg (28.0-33.3); Mean Corpuscular Volume 94.6 fL (83.0-100.0); Monocytes # 0.7 K/mcL (0.0-1.3); Neutrophils # 14.6 K/mcL (1.6-8.9); Platelet Count 328 K/mcL (140-400); Red Blood Count 4.04 M/mcL (3.82-4.97); Red Cell Distribution Width 13.6 % (11.5-14.5); Segmented Neutrophils % 86.1 %
[2019-11-14 13:00] LABS: Bilirubin,Urine Small (Negative); Blood,Urine Negative (Negative); Clarity,Urine Cloudy (Clear); Color,Urine Yellow (Yellow); Glucose,Urine (UA) Normal (Normal); Ketones,Urine Negative (Negative); Leukocyte Esterase,Urine Negative (Negative); Nitrite,Urine Negative (Negative); Protein,Urine Negative (Neg-Trace); Specific Gravity,Urine 1.024 (1.010-1.025); Urobilinogen,Urine Normal (Normal)
[2019-11-14 13:02] LABS: Bacteria,Urine None Seen per hpf (None-Few); Squamous Epithelial Cell,Urine Many per lpf (None-Few); WBC,Urine 0-3 per hpf (0-3)
[2019-11-14 13:14] LABS: INR 1.6; Prothrombin Time 17.9 Seconds (9.4-12.1)
[2019-11-14 13:15] LABS: Alanine Aminotransferase 13 Units/L (7-52); Albumin 3.8 g/dL (3.5-5.7); Albumin/Globulin Ratio 1.4 (1.1-2.2); Alkaline Phosphatase 77 Units/L (34-104); Aspartate Amino Transferase 10 Units/L (13-39); BUN/Creatinine Ratio 13 (6-26); Bilirubin,Direct 0.1 mg/dL (0.0-0.2); Bilirubin,Indirect 0.4 mg/dL (0.0-1.0); Bilirubin,Total 0.5 mg/dL (0.3-1.0); Blood Urea Nitrogen 47 mg/dL (8-23); Carbon Dioxide 18 mEq/L (23-29); Chloride 104 mEq/L (98-107); Globulin 2.8 g/dL (2.4-3.5); Glucose 153 mg/dL (70-105); Magnesium 1.7 mg/dL (1.6-2.6); Osmolality,Calculated 293 (280-300); Potassium 3.8 mEq/L (3.5-5.1); Sodium 134 mEq/L (136-145); Total Protein 6.6 g/dL (6.4-8.9); eGFR For African Americans 15 (> 60); eGFR For Non-African Americans 12 (> 60)
[2019-11-14 13:23] LABS: Troponin I < 0.03 ng/mL (< 0.04)
[2019-11-14] MEDS: 0.9 % Sodium Chloride 1,000 ML IVC SCH ×3 (13:24→17:18)
[2019-11-14] MEDS ORDERED: Ipratropium/Albuterol Neb 3 ML IH PRN (15:11)
[2019-11-14] MEDS ORDERED: Dextrose Gel 15 GM/37.5 ML TUBE PO PRN ×2 (15:12)
[2019-11-14] MEDS ORDERED: Acetaminophen 650 MG RECTAL SUPP RC PRN (15:20)
[2019-11-14 16:09] LABS: Creatine Kinase 177 Units/L (30-223); Phosphorous 4.2 mg/dL (2.7-4.5)
[2019-11-14 16:13] LABS: Amphetamine Screen,Urine Negative ng/mL (Cutoff=1000); Barbiturate Screen,Urine Negative ng/mL (Cutoff=200); Benzodiazepines Screen,Urine Negative ng/mL (Cutoff=200); Cannabinoid Screen,Urine Negative ng/mL (Cutoff = 50); Cocaine Screen,Urine Negative ng/mL (Cutoff= 300); Opiate Screen,Urine Positive ng/mL (Cutoff=300); Phencyclidine Screen,Urine Negative ng/mL (Cutoff=25)
[2019-11-14 16:23] LABS: Thyroid Stimulating Hormone 0.435 mcIU/mL (0.340-5.600)
[2019-11-14 16:24] LABS: VBG HCO3 20 mEq/L (21-27); VBG PCO2 45 mmHg (41-51); VBG PH 7.24 pH Units (7.32-7.42); VBG PO2 77 mmHg (25-50)
[2019-11-14] MEDS: MetroNIDAZOLE 500 MG/100 ML 500 MG/100 ML BAG IVPB SCH ×2 (17:26→23:39)
[2019-11-14] MEDS: Cefepime HCl 1,000 MG in 0.9 % Sodium Chloride Mini Bag 100 ML IVPB SCH (17:27)
[2019-11-14] MEDS: *HR* Dextrose 50 % in Water (Syg) 50 ML SYRINGE IVP PRN ×2 (17:48→23:27)
[2019-11-14] MEDS: Insulin LISPRO 300 UNITS/3 ML VIAL SQ SCH (18:03)
[2019-11-14] MEDS ORDERED: 0.9 % Sodium Chloride 500 ML IV ONE (18:30)
[2019-11-14] MEDS: Naloxone 0.4 MG/ML INJ IVP PRN ×2 (18:43→18:45)
[2019-11-14 19:16] LABS: Adenovirus Not Detected (Not Detect); Bordetella Pertussis Not Detected (Not Detect); Chlamydophila pneumoniae Not Detected (Not Detect); Coronavirus 229E Not Detected (Not Detect); Coronavirus HKU1 Not Detected (Not Detect); Coronavirus NL63 Not Detected (Not Detect); Coronavirus OC43 Not Detected (Not Detect); Human Metapneumovirus Not Detected (Not Detect); Human Rhinovirus/Enterovirus Not Detected (Not Detect); Influenza A Subtype 2009 H1 Not Detected (Not Detect); Influenza A Untypeable Not Detected (Not Detect); Influenza B Not Detected (Not Detect); Mycoplasma pneumoniae Not Detected (Not Detect); Parainfluenza Virus 1 Not Detected (Not Detect); Parainfluenza Virus 2 Not Detected (Not Detect); Parainfluenza Virus 3 Not Detected (Not Detect); Parainfluenza Virus 4 Not Detected (Not Detect); Respiratory Syncytial Virus Not Detected (Not Detect)
[2019-11-14 19:51] LABS: ABG Base Excess -7 mEq/L (-2 to 3); ABG HCO3 20 mEq/L (21-27); ABG Oxygen Saturation 96 % (95-98); ABG PCO2 41 mmHg (35-45); ABG PH 7.29 pH Units (7.32-7.45); ABG PO2 94 mmHg (85-104); ABG TCO2 21 mEq/L (20-26)
[2019-11-14] MEDS ORDERED: Vancomycin 1 EACH in 0.9 % Sodium Chloride 250 ML IVPB PRN (21:00)
[2019-11-14] MEDS: D5% in Water 1,000 ML IVC PRN (23:39)
[2019-11-15] MEDS: Insulin LISPRO 300 UNITS/3 ML VIAL SQ SCH ×5 (00:38→23:51)
[2019-11-15] MEDS ORDERED: Acetaminophen IV 1,000 MG/100 ML INFUS..BTL IVPB ONE (02:57)
[2019-11-15] MEDS: Cefepime HCl 1,000 MG in 0.9 % Sodium Chloride Mini Bag 100 ML IVPB SCH ×2 (04:10→16:53)
[2019-11-15] MEDS: 0.9 % Sodium Chloride 1,000 ML IVC SCH (04:37)
[2019-11-15] MEDS: MetroNIDAZOLE 500 MG/100 ML 500 MG/100 ML BAG IVPB SCH ×3 (07:39→23:41)
[2019-11-15] MEDS: D5% in Water 1,000 ML IVC PRN (07:41)
[2019-11-15 08:10] LABS: ABG Base Excess -4 mEq/L (-2 to 3); ABG HCO3 22 mEq/L (21-27); ABG Oxygen Saturation 98 % (95-98); ABG PCO2 42 mmHg (35-45); ABG PH 7.33 pH Units (7.32-7.45); ABG PO2 116 mmHg (85-104); ABG TCO2 24 mEq/L (20-26)
[2019-11-15 10:22] LABS: Basophils % 0.4 %; Eosinophils # 0.3 K/mcL (0.0-0.6); Eosinophils % 3.4 %; Hematocrit 33.3 % (35.3-44.9); Hemoglobin 10.5 g/dL (11.5-15.4); Immature Granulocytes % 0.4 % (0-4); Lymphocytes # 0.9 K/mcL (0.6-4.6); Lymphocytes % 12.4 %; Mean Corpuscular HGB Conc 31.5 g/dL (31.6-35.5); Mean Corpuscular Hemoglobin 30.3 pg (28.0-33.3); Mean Corpuscular Volume 96.2 fL (83.0-100.0); Mean Platelet Volume 10.2 fL (9.4-12.4); Monocytes # 0.4 K/mcL (0.0-1.3); Monocytes % 5.8 %; Neutrophils # 5.7 K/mcL (1.6-8.9); Platelet Count 275 K/mcL (140-400); Red Blood Count 3.46 M/mcL (3.82-4.97); Red Cell Distribution Width 13.3 % (11.5-14.5); Segmented Neutrophils % 77.6 %
[2019-11-15 10:23] LABS: White Blood Count 7.4 K/mcL (4.3-11.1)
[2019-11-15 10:45] LABS: Calcium 8.2 mg/dL (8.6-10.3); Magnesium 1.7 mg/dL (1.6-2.6); Potassium 3.7 mEq/L (3.5-5.1)
[2019-11-15] MEDS: Acetaminophen 325 MG TABLET PO PRN (12:29)
[2019-11-15] MEDS: Ringers Solution, Lactated 1,000 ML IVC SCH (13:36)
[2019-11-15] MEDS: Apixaban 5 MG TABLET PO SCH (20:22)
[2019-11-15] MEDS: Budesonide/Formoterol 80/4.5 1 PUFF INH IH SCH (20:26)
[2019-11-16] MEDS ORDERED: *HR* HYDROcodone/Acet 10/325 mg TABLET PO ONE (00:21)
[2019-11-16] MEDS: Ringers Solution, Lactated 1,000 ML IVC SCH ×2 (03:20→16:14)
[2019-11-16] MEDS: Cefepime HCl 1,000 MG in 0.9 % Sodium Chloride Mini Bag 100 ML IVPB SCH ×2 (05:28→16:18)
[2019-11-16 06:14] LABS: Basophils # 0.1 K/mcL (0.0-0.2); Basophils % 0.9 %; Eosinophils # 0.4 K/mcL (0.0-0.6); Eosinophils % 5.3 %; Hematocrit 32.2 % (35.3-44.9); Hemoglobin 10.3 g/dL (11.5-15.4); Immature Granulocytes % 0.4 % (0-4); Lymphocytes # 0.9 K/mcL (0.6-4.6); Lymphocytes % 12.6 %; Mean Corpuscular Hemoglobin 30.3 pg (28.0-33.3); Mean Corpuscular Volume 94.7 fL (83.0-100.0); Mean Platelet Volume 10.1 fL (9.4-12.4); Monocytes # 0.5 K/mcL (0.0-1.3); Monocytes % 7.4 %; Neutrophils # 5.1 K/mcL (1.6-8.9); Platelet Count 286 K/mcL (140-400); Red Cell Distribution Width 13.2 % (11.5-14.5); Segmented Neutrophils % 73.4 %; White Blood Count 6.9 K/mcL (4.3-11.1)
[2019-11-16] MEDS: Insulin LISPRO 300 UNITS/3 ML VIAL SQ SCH ×3 (06:38→17:23)
[2019-11-16] MEDS: Ondansetron 4 MG/2 ML VIAL IVP PRN ×2 (06:41→18:14)
[2019-11-16 06:43] LABS: Albumin 3.2 g/dL (3.5-5.7); Albumin/Globulin Ratio 1.4 (1.1-2.2); Bilirubin,Indirect 0.3 mg/dL (0.0-1.0); Bilirubin,Total 0.3 mg/dL (0.3-1.0); Globulin 2.3 g/dL (2.4-3.5); Total Protein 5.5 g/dL (6.4-8.9)
[2019-11-16 06:44] LABS: BUN/Creatinine Ratio 19 (6-26); Blood Urea Nitrogen 17 mg/dL (8-23); Calcium 8.8 mg/dL (8.6-10.3); Carbon Dioxide 22 mEq/L (23-29); Chloride 112 mEq/L (98-107); Glucose 109 mg/dL (70-105); Osmolality,Calculated 308 (280-300); Potassium 4.2 mEq/L (3.5-5.1); Sodium 148 mEq/L (136-145); eGFR For African Americans > 60 (> 60); eGFR For Non-African Americans > 60 (> 60)
[2019-11-16] MEDS: Budesonide/Formoterol 80/4.5 1 PUFF INH IH SCH ×2 (07:39→20:02)
[2019-11-16] MEDS: MetroNIDAZOLE 500 MG/100 ML 500 MG/100 ML BAG IVPB SCH ×2 (09:23→16:16)
[2019-11-16] MEDS: Aspirin Enteric Coated 81 MG Tablet PO SCH (09:24)
[2019-11-16] MEDS: Apixaban 5 MG TABLET PO SCH ×2 (09:24→22:26)
[2019-11-16 13:31] LABS: BUN/Creatinine Ratio 16 (6-26); Blood Urea Nitrogen 13 mg/dL (8-23); Calcium 9.1 mg/dL (8.6-10.3); Carbon Dioxide 23 mEq/L (23-29); Chloride 108 mEq/L (98-107); Glucose 204 mg/dL (70-105); Osmolality,Calculated 304 (280-300); Potassium 4.1 mEq/L (3.5-5.1); Sodium 144 mEq/L (136-145); eGFR For African Americans > 60 (> 60); eGFR For Non-African Americans > 60 (> 60)
[2019-11-17] MEDS: Insulin LISPRO 300 UNITS/3 ML VIAL SQ SCH ×4 (01:58→16:51)
[2019-11-17] MEDS: MetroNIDAZOLE 500 MG/100 ML 500 MG/100 ML BAG IVPB SCH ×3 (02:03→16:52)
[2019-11-17] MEDS: Cefepime HCl 1,000 MG in 0.9 % Sodium Chloride Mini Bag 100 ML IVPB SCH ×2 (03:41→16:19)
[2019-11-17] MEDS: Acetaminophen 325 MG TABLET PO PRN (03:42)
[2019-11-17] MEDS: Ringers Solution, Lactated 1,000 ML IVC SCH (06:01)
[2019-11-17 07:07] LABS: Basophils % 0.6 %; Eosinophils # 0.3 K/mcL (0.0-0.6); Eosinophils % 4.8 %; Hemoglobin 11.1 g/dL (11.5-15.4); Immature Granulocytes % 0.3 % (0-4); Lymphocytes # 0.9 K/mcL (0.6-4.6); Lymphocytes % 13.6 %; Mean Corpuscular HGB Conc 32.6 g/dL (31.6-35.5); Mean Corpuscular Hemoglobin 30.4 pg (28.0-33.3); Mean Corpuscular Volume 93.2 fL (83.0-100.0); Mean Platelet Volume 10.2 fL (9.4-12.4); Monocytes # 0.5 K/mcL (0.0-1.3); Monocytes % 7.9 %; Neutrophils # 4.7 K/mcL (1.6-8.9); Platelet Count 313 K/mcL (140-400); Red Blood Count 3.65 M/mcL (3.82-4.97); Red Cell Distribution Width 13.1 % (11.5-14.5); Segmented Neutrophils % 72.8 %; White Blood Count 6.5 K/mcL (4.3-11.1)
[2019-11-17 07:28] LABS: BUN/Creatinine Ratio 12 (6-26); Blood Urea Nitrogen 8 mg/dL (8-23); Calcium 9.8 mg/dL (8.6-10.3); Carbon Dioxide 29 mEq/L (23-29); Chloride 104 mEq/L (98-107); Glucose 142 mg/dL (70-105); Osmolality,Calculated 299 (280-300); Potassium 3.5 mEq/L (3.5-5.1); Sodium 144 mEq/L (136-145); eGFR For African Americans > 60 (> 60); eGFR For Non-African Americans > 60 (> 60)
[2019-11-17] MEDS: Budesonide/Formoterol 80/4.5 1 PUFF INH IH SCH ×2 (07:43→19:52)
[2019-11-17] MEDS: Apixaban 5 MG TABLET PO SCH ×2 (08:07→21:48)
[2019-11-17] MEDS: NIFEdipine XL (24 HR) 30 MG TAB.ER.24 PO SCH (08:07)
[2019-11-17] MEDS: Metoprolol 100 MG TABLET PO SCH ×2 (08:07→21:48)
[2019-11-17] MEDS: Aspirin Enteric Coated 81 MG Tablet PO SCH (08:07)
[2019-11-17] MEDS ORDERED: *HR* HYDROcodone/Acet 10/325 mg TABLET PO PRN (11:43)
[2019-11-17] MEDS ORDERED: Aminoglycoside Consult 1 EACH MC ONE (13:02)
[2019-11-17] MEDS ORDERED: Pregabalin 75 MG CAPSULE PO SCH (21:00)
[2019-11-17] MEDS: *HR* LORazepam 1 MG TABLET PO PRN (21:48)
[2019-11-18] MEDS: MetroNIDAZOLE 500 MG/100 ML 500 MG/100 ML BAG IVPB SCH (00:30)
[2019-11-18] MEDS: Cefepime HCl 1,000 MG in 0.9 % Sodium Chloride Mini Bag 100 ML IVPB SCH (04:10)
[2019-11-18 05:09] LABS: Hematocrit 32.6 % (35.3-44.9); Hemoglobin 10.4 g/dL (11.5-15.4); Mean Corpuscular HGB Conc 31.9 g/dL (31.6-35.5); Mean Corpuscular Volume 93.9 fL (83.0-100.0); Platelet Count 313 K/mcL (140-400); Red Blood Count 3.47 M/mcL (3.82-4.97); White Blood Count 6.7 K/mcL (4.3-11.1)
[2019-11-18] MEDS: Ringers Solution, Lactated 1,000 ML IVC SCH ×3 (05:21→20:02)
[2019-11-18 05:26] LABS: BUN/Creatinine Ratio 13 (6-26); Blood Urea Nitrogen 9 mg/dL (8-23); Calcium 9.2 mg/dL (8.6-10.3); Carbon Dioxide 30 mEq/L (23-29); Chloride 107 mEq/L (98-107); Glucose 93 mg/dL (70-105); Magnesium 1.1 mg/dL (1.6-2.6); Osmolality,Calculated 290 (280-300); Potassium 3.2 mEq/L (3.5-5.1); Sodium 141 mEq/L (136-145); eGFR For African Americans > 60 (> 60); eGFR For Non-African Americans > 60 (> 60)
[2019-11-18] MEDS: Insulin LISPRO 300 UNITS/3 ML VIAL SQ SCH ×3 (08:00→16:49)
[2019-11-18] MEDS ORDERED: *HR* HYDROcodone/Acet 10/325 mg TABLET PO PRN (08:46)
[2019-11-18] MEDS ORDERED: Acetaminophen 325 MG TABLET PO PRN (08:46)
[2019-11-18] MEDS: NIFEdipine XL (24 HR) 30 MG TAB.ER.24 PO SCH (08:56)
[2019-11-18] MEDS: Potassium Chloride Elixir 20 MEQ/15 ML UDC PO SCH ×2 (08:56→11:14)
[2019-11-18] MEDS: Metoprolol 100 MG TABLET PO SCH ×2 (08:56→20:01)
[2019-11-18] MEDS: Pregabalin 75 MG CAPSULE PO SCH ×2 (08:56→19:58)
[2019-11-18] MEDS: Aspirin Enteric Coated 81 MG Tablet PO SCH (08:56)
[2019-11-18] MEDS: Apixaban 5 MG TABLET PO SCH ×2 (08:56→19:59)
[2019-11-18] MEDS: Budesonide/Formoterol 80/4.5 1 PUFF INH IH SCH ×2 (10:30→20:10)
[2019-11-18] MEDS: *HR* LORazepam 1 MG TABLET PO PRN (20:01)
[2019-11-19 04:47] LABS: BUN/Creatinine Ratio 20 (6-26); Blood Urea Nitrogen 19 mg/dL (8-23); Calcium 8.9 mg/dL (8.6-10.3); Carbon Dioxide 30 mEq/L (23-29); Chloride 107 mEq/L (98-107); Glucose 111 mg/dL (70-105); Magnesium 1.7 mg/dL (1.6-2.6); Osmolality,Calculated 303 (280-300); Potassium 4.3 mEq/L (3.5-5.1); Sodium 145 mEq/L (136-145); eGFR For African Americans > 60 (> 60); eGFR For Non-African Americans 60 (> 60)
[2019-11-19] MEDS: Insulin LISPRO 300 UNITS/3 ML VIAL SQ SCH ×2 (07:32→12:22)
[2019-11-19] MEDS: Pregabalin 75 MG CAPSULE PO SCH (08:50)
[2019-11-19] MEDS: Aspirin Enteric Coated 81 MG Tablet PO SCH (08:50)
[2019-11-19] MEDS: Metoprolol 100 MG TABLET PO SCH (08:51)
[2019-11-19] MEDS: Apixaban 5 MG TABLET PO SCH (08:51)
[2019-11-19] MEDS: NIFEdipine XL (24 HR) 30 MG TAB.ER.24 PO SCH (08:51)
[2019-11-19] MEDS: Budesonide/Formoterol 80/4.5 1 PUFF INH IH SCH (10:36)
[2019-11-19 11:47] VITALS: BP 123/81
[2019-11-19] MEDS: Ringers Solution, Lactated 1,000 ML IVC SCH (12:16)
[2019-11-19] MEDS: *HR* LORazepam 1 MG TABLET PO PRN (13:58)
== END 2019-11-19 14:23 | DRG 871 ==
LOC: 2ANU 11:51 → EMEROOARM 11:51 → SUATTDRO 14:40 → 2ANU 17:00 → 2NNU 18:57 → SUATTDRO 11-15 10:41 → 2ANU 11-17 19:37
PROVIDERS: ADMIT Internal Medicine; ATTEND Internal Medicine

== ENCOUNTER 2020-01-12 11:16 | Observation (INO) ==
[2020-01-12 11:52] LABS: Basophils # 0.1 K/mcL (0.0-0.2); Basophils % 0.4 %; Eosinophils % 0.2 %; Hematocrit 33.9 % (35.3-44.9); Hemoglobin 10.7 g/dL (11.5-15.4); Immature Granulocytes % 0.5 % (0-4); Lymphocytes # 1.5 K/mcL (0.6-4.6); Lymphocytes % 11.5 %; Mean Corpuscular HGB Conc 31.6 g/dL (31.6-35.5); Mean Corpuscular Volume 98.3 fL (83.0-100.0); Monocytes # 0.6 K/mcL (0.0-1.3); Neutrophils # 10.6 K/mcL (1.6-8.9); Platelet Count 458 K/mcL (140-400); Red Blood Count 3.45 M/mcL (3.82-4.97); Red Cell Distribution Width 15.2 % (11.5-14.5); Segmented Neutrophils % 82.4 %; White Blood Count 12.8 K/mcL (4.3-11.1)
[2020-01-12 12:08] LABS: Bilirubin,Urine Negative (Negative); Blood,Urine Small (Negative); Clarity,Urine Turbid (Clear); Color,Urine Yellow (Yellow); Glucose,Urine (UA) Normal (Normal); Ketones,Urine Negative (Negative); Leukocyte Esterase,Urine Large (Negative); Nitrite,Urine Negative (Negative); PH,Urine 5.5 pH Units (5.0-8.0); Protein,Urine 30 mg/dL (Neg-Trace); Specific Gravity,Urine 1.018 (1.010-1.025); Urobilinogen,Urine Normal (Normal)
[2020-01-12 12:10] LABS: Hyaline Casts,Urine None Seen per lpf (None-Few); WBC,Urine TNTC per hpf (0-3)
[2020-01-12 12:13] LABS: Alanine Aminotransferase 18 Units/L (7-52); Albumin 3.6 g/dL (3.5-5.7); Albumin/Globulin Ratio 1.2 (1.1-2.2); Alkaline Phosphatase 172 Units/L (34-104); Aspartate Amino Transferase 17 Units/L (13-39); BUN/Creatinine Ratio 15 (6-26); Bilirubin,Total 0.4 mg/dL (0.3-1.0); Blood Urea Nitrogen 30 mg/dL (8-23); Calcium 8.9 mg/dL (8.6-10.3); Carbon Dioxide 22 mEq/L (23-29); Chloride 104 mEq/L (98-107); Glucose 200 mg/dL (70-105); Osmolality,Calculated 300 (280-300); Potassium 4.8 mEq/L (3.5-5.1); Sodium 139 mEq/L (136-145); Total Protein 6.6 g/dL (6.4-8.9); Troponin I < 0.03 ng/mL (< 0.04); eGFR For African Americans 30 (> 60); eGFR For Non-African Americans 25 (> 60)
[2020-01-12 12:22] LABS: Amphetamine Screen,Urine Negative ng/mL (Cutoff=1000); Barbiturate Screen,Urine Negative ng/mL (Cutoff=200); Benzodiazepines Screen,Urine Negative ng/mL (Cutoff=200); Cannabinoid Screen,Urine Negative ng/mL (Cutoff = 50); Cocaine Screen,Urine Negative ng/mL (Cutoff= 300); Opiate Screen,Urine Positive ng/mL (Cutoff=300); Phencyclidine Screen,Urine Negative ng/mL (Cutoff=25)
[2020-01-12 12:23] LABS: Thyroid Stimulating Hormone 0.672 mcIU/mL (0.340-5.600)
[2020-01-12 12:35] LABS: Bacteria,Urine Few per hpf (None-Few)
[2020-01-12 12:36] LABS: Squamous Epithelial Cell,Urine Few per lpf (None-Few); Yeast,Urine Moderate per hpf (None Seen)
[2020-01-12] MEDS ORDERED: 0.9 % Sodium Chloride 500 ML IVC ONE (12:59)
[2020-01-12 13:06] LABS: Acetaminophen < 10 mcg/mL (10-20); Ethanol < 10 mg/dL (Less than 10); Salicylate < 2.5 mg/dL (15.0-30.0)
[2020-01-12 14:16] LABS: Creatine Kinase 62 Units/L (30-223)
[2020-01-12] MEDS ORDERED: Naloxone 0.4 MG/ML INJ IVP PRN (16:03)
[2020-01-12] MEDS ORDERED: D5% in Water 1,000 ML IVC PRN (16:05)
[2020-01-12] MEDS ORDERED: Dextrose Gel 15 GM/37.5 ML TUBE PO PRN ×2 (16:05)
[2020-01-12] MEDS ORDERED: *HR* Dextrose 50 % in Water (Syg) 50 ML SYRINGE IVP PRN (16:05)
[2020-01-12] MEDS ORDERED: 0.9 % Sodium Chloride 1,000 ML IVC SCH (16:15)
[2020-01-12] MEDS: Insulin LISPRO 300 UNITS/3 ML VIAL SQ SCH (17:30)
[2020-01-12] MEDS: cefTRIAXone 1,000 MG in Water for inj. (sterile) 10 ML IVP SCH (17:30)
[2020-01-12] MEDS: Apixaban 5 MG TABLET PO SCH (21:12)
[2020-01-13] MEDS ORDERED: D10% in Water 500 ML IVC SCH ×2 (06:00→11:17)
[2020-01-13 06:03] LABS: Basophils % 0.5 %; Eosinophils # 0.1 K/mcL (0.0-0.6); Eosinophils % 1.2 %; Hematocrit 29.8 % (35.3-44.9); Immature Granulocytes % 0.4 % (0-4); Lymphocytes # 1.6 K/mcL (0.6-4.6); Lymphocytes % 19.3 %; Mean Corpuscular HGB Conc 29.9 g/dL (31.6-35.5); Mean Corpuscular Hemoglobin 30.7 pg (28.0-33.3); Mean Corpuscular Volume 102.8 fL (83.0-100.0); Mean Platelet Volume 10.2 fL (9.4-12.4); Monocytes # 0.8 K/mcL (0.0-1.3); Monocytes % 9.2 %; Neutrophils # 5.7 K/mcL (1.6-8.9); Platelet Count 369 K/mcL (140-400); Red Cell Distribution Width 15.3 % (11.5-14.5); Segmented Neutrophils % 69.4 %; White Blood Count 8.1 K/mcL (4.3-11.1)
[2020-01-13 06:04] LABS: Hemoglobin 8.9 g/dL (11.5-15.4)
[2020-01-13] MEDS: D10% in Water 500 ML IVC SCH ×2 (06:33→19:21)
[2020-01-13 06:34] LABS: Calcium 8.7 mg/dL (8.6-10.3); Potassium 4.2 mEq/L (3.5-5.1)
[2020-01-13] MEDS: Insulin LISPRO 300 UNITS/3 ML VIAL SQ SCH ×3 (07:28→16:45)
[2020-01-13] MEDS: cefTRIAXone 1,000 MG in Water for inj. (sterile) 10 ML IVP SCH (07:29)
[2020-01-13] MEDS: Apixaban 5 MG TABLET PO SCH ×2 (07:29→20:06)
[2020-01-13] MEDS: 0.9 % Sodium Chloride 1,000 ML IVC SCH (12:14)
[2020-01-13] MEDS: Metoprolol 100 MG TABLET PO SCH (14:32)
[2020-01-13] MEDS ORDERED: *HR* HYDROcodone/Acet 10/325 mg TABLET PO PRN (15:10)
[2020-01-13] MEDS: Pregabalin 75 MG CAPSULE PO SCH (20:06)
[2020-01-13] MEDS: *HR* LORazepam 1 MG TABLET PO PRN (20:06)
[2020-01-13] MEDS: Budesonide/Formoterol 80/4.5 1 PUFF INH IH SCH (21:50)
[2020-01-14 05:00] LABS: Hematocrit 29.1 % (35.3-44.9); Mean Corpuscular HGB Conc 30.9 g/dL (31.6-35.5); Mean Corpuscular Hemoglobin 30.9 pg (28.0-33.3); Mean Platelet Volume 10.3 fL (9.4-12.4); Platelet Count 349 K/mcL (140-400); Red Blood Count 2.91 M/mcL (3.82-4.97); Red Cell Distribution Width 14.6 % (11.5-14.5)
[2020-01-14 05:18] LABS: BUN/Creatinine Ratio 13 (6-26); Blood Urea Nitrogen 11 mg/dL (8-23); Calcium 9.3 mg/dL (8.6-10.3); Carbon Dioxide 25 mEq/L (23-29); Chloride 109 mEq/L (98-107); Glucose 82 mg/dL (70-105); Osmolality,Calculated 288 (280-300); Sodium 140 mEq/L (136-145); eGFR For African Americans > 60 (> 60); eGFR For Non-African Americans > 60 (> 60)
[2020-01-14] MEDS: Insulin LISPRO 300 UNITS/3 ML VIAL SQ SCH ×3 (08:00→17:03)
[2020-01-14] MEDS: cefTRIAXone 1,000 MG in Water for inj. (sterile) 10 ML IVP SCH (08:01)
[2020-01-14] MEDS: Metoprolol 100 MG TABLET PO SCH (08:02)
[2020-01-14] MEDS: Apixaban 5 MG TABLET PO SCH ×2 (08:02→20:30)
[2020-01-14] MEDS: Pregabalin 75 MG CAPSULE PO SCH ×2 (08:02→20:30)
[2020-01-14] MEDS: Aspirin 81 MG TAB.CHEW PO SCH (08:02)
[2020-01-14] MEDS: 0.9 % Sodium Chloride 1,000 ML IVC SCH (08:30)
[2020-01-14] MEDS: Budesonide/Formoterol 80/4.5 1 PUFF INH IH SCH ×2 (11:15→21:17)
[2020-01-14] MEDS: *HR* LORazepam 1 MG TABLET PO PRN (20:37)
[2020-01-15] MEDS: 0.9 % Sodium Chloride 1,000 ML IVC SCH (04:33)
[2020-01-15] MEDS: Budesonide/Formoterol 80/4.5 1 PUFF INH IH SCH (07:35)
[2020-01-15 08:00] LABS: Basophils # 0.1 K/mcL (0.0-0.2); Basophils % 1.2 %; Eosinophils # 0.1 K/mcL (0.0-0.6); Eosinophils % 2.6 %; Hematocrit 32.4 % (35.3-44.9); Hemoglobin 9.7 g/dL (11.5-15.4); Immature Granulocytes % 0.7 % (0-4); Lymphocytes # 0.9 K/mcL (0.6-4.6); Lymphocytes % 21.2 %; Mean Corpuscular HGB Conc 29.9 g/dL (31.6-35.5); Mean Corpuscular Hemoglobin 30.9 pg (28.0-33.3); Mean Corpuscular Volume 103.2 fL (83.0-100.0); Mean Platelet Volume 10.2 fL (9.4-12.4); Monocytes # 0.4 K/mcL (0.0-1.3); Monocytes % 8.5 %; Neutrophils # 2.8 K/mcL (1.6-8.9); Platelet Count 335 K/mcL (140-400); Red Blood Count 3.14 M/mcL (3.82-4.97); Red Cell Distribution Width 14.4 % (11.5-14.5); Segmented Neutrophils % 65.8 %; White Blood Count 4.3 K/mcL (4.3-11.1)
[2020-01-15 08:21] LABS: BUN/Creatinine Ratio 11 (6-26); Blood Urea Nitrogen 10 mg/dL (8-23); Calcium 9.3 mg/dL (8.6-10.3); Carbon Dioxide 25 mEq/L (23-29); Chloride 106 mEq/L (98-107); Glucose 155 mg/dL (70-105); Osmolality,Calculated 298 (280-300); Potassium 4.2 mEq/L (3.5-5.1); Sodium 143 mEq/L (136-145); eGFR For African Americans > 60 (> 60); eGFR For Non-African Americans > 60 (> 60)
[2020-01-15] MEDS: Insulin LISPRO 300 UNITS/3 ML VIAL SQ SCH ×2 (09:03→13:57)
[2020-01-15 10:14] VITALS: BP 138/93
[2020-01-15] MEDS: Aspirin 81 MG TAB.CHEW PO SCH (10:25)
[2020-01-15] MEDS: Apixaban 5 MG TABLET PO SCH (10:25)
[2020-01-15] MEDS: Metoprolol 100 MG TABLET PO SCH (10:25)
[2020-01-15] MEDS: Pregabalin 75 MG CAPSULE PO SCH (10:25)
[2020-01-15] MEDS: *HR* LORazepam 1 MG TABLET PO PRN (10:28)
== END 2020-01-15 16:26 | disposition home health service (06) ==
LOC: 3ANU 11:16 → EMEROOARM 11:16 → 3ANU 16:25
PROVIDERS: ADMIT Pharmacist; ATTEND Pharmacist

== ENCOUNTER 2020-07-27 16:47 | Observation (INO) ==
[2020-07-27] MEDS ORDERED: Clindamycin 600 MG/50 ML 600 MG/50 ML IV.SOLN IVPB ONE (19:17)
[2020-07-27 20:19] LABS: Basophils % 0.4 %; Eosinophils # 0.3 K/mcL (0.0-0.6); Eosinophils % 2.8 %; Hematocrit 33.4 % (35.3-44.9); Hemoglobin 9.8 g/dL (11.5-15.4); Immature Granulocytes % 0.5 % (0-4); Lymphocytes # 1.3 K/mcL (0.6-4.6); Lymphocytes % 11.8 %; Mean Corpuscular HGB Conc 29.3 g/dL (31.6-35.5); Mean Corpuscular Hemoglobin 27.8 pg (28.0-33.3); Mean Corpuscular Volume 94.9 fL (83.0-100.0); Mean Platelet Volume 10.4 fL (9.4-12.4); Monocytes # 0.6 K/mcL (0.0-1.3); Monocytes % 5.4 %; Neutrophils # 8.6 K/mcL (1.6-8.9); Platelet Count 326 K/mcL (140-400); Red Blood Count 3.52 M/mcL (3.82-4.97); Red Cell Distribution Width 17.4 % (11.5-14.5); Segmented Neutrophils % 79.1 %; White Blood Count 10.8 K/mcL (4.3-11.1)
[2020-07-27 20:41] LABS: Calcium 8.5 mg/dL (8.6-10.3); Potassium 3.3 mEq/L (3.5-5.1)
[2020-07-27] MEDS ORDERED: 0.9 % Sodium Chloride 1,000 ML IVC ONE (21:42)
[2020-07-28] MEDS ORDERED: Naloxone 0.4 MG/ML INJ IVP PRN
[2020-07-28] MEDS ORDERED: 0.9 % Sodium Chloride 1,000 ML IVC SCH
[2020-07-28 01:32] LABS: Hematocrit 31.6 % (35.3-44.9); Hemoglobin 9.3 g/dL (11.5-15.4); Mean Corpuscular HGB Conc 29.4 g/dL (31.6-35.5); Mean Corpuscular Hemoglobin 27.7 pg (28.0-33.3); Mean Platelet Volume 10.4 fL (9.4-12.4); Platelet Count 298 K/mcL (140-400); Red Blood Count 3.36 M/mcL (3.82-4.97); Red Cell Distribution Width 17.2 % (11.5-14.5); White Blood Count 9.6 K/mcL (4.3-11.1)
[2020-07-28 01:59] LABS: Calcium 8.5 mg/dL (8.6-10.3); Potassium 2.8 mEq/L (3.5-5.1)
[2020-07-28] MEDS ORDERED: D5% in Water 1,000 ML IVC PRN (02:41)
[2020-07-28] MEDS ORDERED: Dextrose Gel 15 GM/37.5 ML TUBE PO PRN (02:41)
[2020-07-28] MEDS: Dextrose Gel 15 GM/37.5 ML TUBE PO PRN ×2 (02:54→04:03)
[2020-07-28] MEDS ORDERED: Dextrose Gel 15 GM/37.5 ML TUBE PO ONE (03:43)
[2020-07-28] MEDS ORDERED: Vancomycin 1,500 MG/265 ML IV.SOLN IVPB ONE (05:00)
[2020-07-28] MEDS: Insulin LISPRO 300 UNITS/3 ML VIAL SQ SCH ×3 (07:29→16:36)
[2020-07-28] MEDS: *HR* Dextrose 50 % in Water (Vial) 50 ML VIAL IVP PRN ×2 (08:34→21:19)
[2020-07-28 10:23] LABS: Calcium 8.3 mg/dL (8.6-10.3); Magnesium 1.3 mg/dL (1.6-2.6); Potassium 3.1 mEq/L (3.5-5.1)
[2020-07-28] MEDS: Piperacillin/Tazobactam 3.375 GM in 0.9 % Sodium Chloride Mini Bag 100 ML IVPB SCH ×2 (12:03→17:26)
[2020-07-28] MEDS: Miconazole 2% ointment 141 APPL/141 GM TUBE TP SCH (14:13)
[2020-07-28] MEDS: Pregabalin 50 MG CAPSULE PO SCH ×2 (14:19→20:10)
[2020-07-28] MEDS: *HR* LORazepam 1 MG TABLET PO PRN (14:22)
[2020-07-28] MEDS: Budesonide/Formoterol 80/4.5 1 PUFF INH IH SCH ×2 (15:06→20:16)
[2020-07-28] MEDS: Vancomycin 1,250 MG/262.5 ML IV.SOLN IVPB SCH (17:20)
[2020-07-28] MEDS: Furosemide 40 MG TABLET PO SCH (17:21)
[2020-07-28] MEDS: Apixaban 5 MG TABLET PO SCH (20:10)
[2020-07-28] MEDS: Metoprolol 100 MG TABLET PO SCH (20:10)
[2020-07-28] MEDS: *HR* HYDROcodone/Acet 10/325 mg TABLET PO PRN (20:10)
[2020-07-28] MEDS: D10% in Water 500 ML IVC SCH (21:36)
[2020-07-29] MEDS: Insulin LISPRO 300 UNITS/3 ML VIAL SQ SCH ×5 (01:16→20:03)
[2020-07-29] MEDS: Piperacillin/Tazobactam 3.375 GM in 0.9 % Sodium Chloride Mini Bag 100 ML IVPB SCH ×3 (01:50→16:53)
[2020-07-29 05:43] LABS: Basophils % 0.5 %; Eosinophils # 0.4 K/mcL (0.0-0.6); Eosinophils % 5.5 %; Hematocrit 30.9 % (35.3-44.9); Immature Granulocytes % 0.4 % (0-4); Lymphocytes # 1.3 K/mcL (0.6-4.6); Lymphocytes % 17.2 %; Mean Corpuscular HGB Conc 29.1 g/dL (31.6-35.5); Mean Corpuscular Hemoglobin 27.8 pg (28.0-33.3); Mean Corpuscular Volume 95.4 fL (83.0-100.0); Mean Platelet Volume 10.8 fL (9.4-12.4); Monocytes # 0.6 K/mcL (0.0-1.3); Monocytes % 8.1 %; Platelet Count 294 K/mcL (140-400); Red Blood Count 3.24 M/mcL (3.82-4.97); Red Cell Distribution Width 17.7 % (11.5-14.5); Segmented Neutrophils % 68.3 %; White Blood Count 7.3 K/mcL (4.3-11.1)
[2020-07-29 06:06] LABS: BUN/Creatinine Ratio 11 (6-26); Blood Urea Nitrogen 12 mg/dL (8-23); Calcium 8.8 mg/dL (8.6-10.3); Carbon Dioxide 29 mEq/L (23-29); Chloride 109 mEq/L (98-107); Glucose 138 mg/dL (70-105); Magnesium 1.7 mg/dL (1.6-2.6); Osmolality,Calculated 300 (280-300); Phosphorous 2.2 mg/dL (2.7-4.5); Potassium 3.7 mEq/L (3.5-5.1); Sodium 144 mEq/L (136-145); eGFR For African Americans > 60 (> 60); eGFR For Non-African Americans 51 (> 60)
[2020-07-29] MEDS: Apixaban 5 MG TABLET PO SCH ×2 (08:17→20:02)
[2020-07-29] MEDS: Metoprolol 100 MG TABLET PO SCH ×2 (08:17→20:02)
[2020-07-29] MEDS: Miconazole 2% ointment 141 APPL/141 GM TUBE TP SCH (08:18)
[2020-07-29] MEDS: Furosemide 40 MG TABLET PO SCH ×2 (08:18→16:53)
[2020-07-29] MEDS: Pregabalin 50 MG CAPSULE PO SCH ×3 (08:18→20:03)
[2020-07-29] MEDS: Aspirin 81 MG TAB.CHEW PO SCH (08:18)
[2020-07-29] MEDS: Budesonide/Formoterol 80/4.5 1 PUFF INH IH SCH ×2 (08:34→20:37)
[2020-07-29] MEDS: D10% in Water 500 ML IVC SCH (14:48)
[2020-07-29] MEDS: Vancomycin 1,250 MG/262.5 ML IV.SOLN IVPB SCH (17:12)
[2020-07-29] MEDS: *HR* LORazepam 1 MG TABLET PO PRN (20:08)
[2020-07-30] MEDS: Piperacillin/Tazobactam 3.375 GM in 0.9 % Sodium Chloride Mini Bag 100 ML IVPB SCH ×3 (00:48→16:46)
[2020-07-30 01:28] LABS: Hematocrit 33.7 % (35.3-44.9); Hemoglobin 9.8 g/dL (11.5-15.4); Mean Corpuscular HGB Conc 29.1 g/dL (31.6-35.5); Mean Corpuscular Hemoglobin 27.9 pg (28.0-33.3); Mean Platelet Volume 10.3 fL (9.4-12.4); Platelet Count 306 K/mcL (140-400); Red Blood Count 3.51 M/mcL (3.82-4.97); Red Cell Distribution Width 17.9 % (11.5-14.5); White Blood Count 7.4 K/mcL (4.3-11.1)
[2020-07-30 01:48] LABS: Calcium 9.1 mg/dL (8.6-10.3); Magnesium 1.3 mg/dL (1.6-2.6); Phosphorous 2.7 mg/dL (2.7-4.5); Potassium 3.4 mEq/L (3.5-5.1)
[2020-07-30] MEDS ORDERED: Ringers Solution, Lactated 1,000 ML IVC SCH (08:00)
[2020-07-30] MEDS: Budesonide/Formoterol 80/4.5 1 PUFF INH IH SCH ×2 (08:12→20:24)
[2020-07-30] MEDS: Pregabalin 50 MG CAPSULE PO SCH ×3 (09:17→20:16)
[2020-07-30] MEDS: Aspirin 81 MG TAB.CHEW PO SCH (09:17)
[2020-07-30] MEDS: Metoprolol 100 MG TABLET PO SCH ×2 (09:18→20:17)
[2020-07-30] MEDS: Apixaban 5 MG TABLET PO SCH ×2 (09:19→20:17)
[2020-07-30] MEDS: Miconazole 2% ointment 141 APPL/141 GM TUBE TP SCH (09:19)
[2020-07-30] MEDS: Insulin LISPRO 300 UNITS/3 ML VIAL SQ SCH ×5 (09:20→20:24)
[2020-07-30] MEDS: *HR* LORazepam 1 MG TABLET PO PRN ×2 (09:27→20:17)
[2020-07-30 20:11] LABS: Adenovirus F 40/41 PCR Not detected (Not detect); Astrovirus PCR Not detected (Not detect); C.difficile Toxin A/B Gene PCR Not detected (Not detect); Campylobacter by PCR Not detected (Not detect); Cryptosporidium by PCR Not detected (Not detect); Cyclospora cayetanensis PCR Not detected (Not detect); E. coli O157 by PCR Not detected (Not detect); Entamoeba histolytica PCR Not detected (Not detect); Enteroaggregative E.coli(EAEC) Not detected (Not detect); Enteropathogenic E.coli(EPEC) Not detected (Not detect); Enterotoxigenic E.coli (ETEC) Not detected (Not detect); Giardia lamblia PCR Not detected (Not detect); Norovirus GI/GII PCR Not detected (Not detect); Plesiomonas shigelloides PCR Not detected (Not detect); Rotavirus A PCR Not detected (Not detect); Salmonella PCR Not detected (Not detect); Sapovirus PCR Not detected (Not detect); Shig/EnteroinvasiveE coli EIEC Not detected (Not detect); Shigalike tox-prod E coli STEC Not detected (Not detect); Vibrio PCR Not detected (Not detect); Vibrio cholerae PCR Not detected (Not detect); Yersinia enterocolitica PCR Not detected (Not detect)
[2020-07-30] MEDS: Doxycycline 100 MG CAPSULE PO SCH (20:16)
[2020-07-31] MEDS: Piperacillin/Tazobactam 3.375 GM in 0.9 % Sodium Chloride Mini Bag 100 ML IVPB SCH ×2 (00:11→08:35)
[2020-07-31 05:34] LABS: Basophils % 0.9 %; Hemoglobin 10.7 g/dL (11.5-15.4); Immature Granulocytes % 0.5 % (0-4)
[2020-07-31 05:35] LABS: Basophils # 0.1 K/mcL (0.0-0.2); Eosinophils # 0.5 K/mcL (0.0-0.6); Hematocrit 36.3 % (35.3-44.9); Lymphocytes # 1.4 K/mcL (0.6-4.6); Lymphocytes % 16.1 %; Mean Corpuscular HGB Conc 29.5 g/dL (31.6-35.5); Mean Corpuscular Hemoglobin 28.4 pg (28.0-33.3); Mean Corpuscular Volume 96.3 fL (83.0-100.0); Mean Platelet Volume 10.2 fL (9.4-12.4); Monocytes # 0.6 K/mcL (0.0-1.3); Monocytes % 7.2 %; Neutrophils # 5.9 K/mcL (1.6-8.9); Platelet Count 320 K/mcL (140-400); Red Blood Count 3.77 M/mcL (3.82-4.97); Red Cell Distribution Width 17.3 % (11.5-14.5); Segmented Neutrophils % 69.3 %; White Blood Count 8.5 K/mcL (4.3-11.1)
[2020-07-31 05:54] LABS: Calcium 9.4 mg/dL (8.6-10.3); Magnesium 1.8 mg/dL (1.6-2.6)
[2020-07-31 05:57] LABS: Polychromasia 1+ (Not Present)
[2020-07-31 05:58] LABS: Platelet Estimate Normal (Normal)
[2020-07-31] MEDS: Insulin LISPRO 300 UNITS/3 ML VIAL SQ SCH ×2 (08:23→11:41)
[2020-07-31] MEDS: *HR* HYDROcodone/Acet 10/325 mg TABLET PO PRN (08:33)
[2020-07-31] MEDS: Doxycycline 100 MG CAPSULE PO SCH (08:33)
[2020-07-31] MEDS: Aspirin 81 MG TAB.CHEW PO SCH (08:33)
[2020-07-31] MEDS: Metoprolol 100 MG TABLET PO SCH (08:34)
[2020-07-31] MEDS: Apixaban 5 MG TABLET PO SCH (08:34)
[2020-07-31] MEDS: Pregabalin 50 MG CAPSULE PO SCH ×2 (08:34→14:49)
[2020-07-31] MEDS: Miconazole 2% ointment 141 APPL/141 GM TUBE TP SCH (08:35)
[2020-07-31] MEDS: Budesonide/Formoterol 80/4.5 1 PUFF INH IH SCH (10:13)
[2020-07-31 11:09] VITALS: BP 153/81
[2020-08-03] MEDS ORDERED: Ergocalciferol (VIT D2) 50,000 UNIT (1.25MG) CAP PO SCH (09:00)
== END 2020-07-31 15:26 | disposition home health service (06) ==
LOC: EMEROOARM 16:47 → 3BNU 16:47 → SUATTDRO 22:19 → 3BNU 22:42
PROVIDERS: ADMIT Internal Medicine; ATTEND Internal Medicine

== ENCOUNTER 2020-08-10 22:01 | Observation (INO) ==
[2020-08-11 01:11] LABS: Adenovirus Not Detected (Not Detect); Coronavirus 229E Not Detected (Not Detect); Coronavirus HKU1 Not Detected (Not Detect); Coronavirus NL63 Not Detected (Not Detect); Coronavirus OC43 Not Detected (Not Detect); Human Metapneumovirus Not Detected (Not Detect); Human Rhinovirus/Enterovirus Not Detected (Not Detect); Influenza A Subtype 2009 H1 Not Detected (Not Detect); Influenza B Not Detected (Not Detect); Parainfluenza Virus 1 Not Detected (Not Detect); Parainfluenza Virus 2 Not Detected (Not Detect); SARS-CoV-2 Not Detected (Not Detect)
[2020-08-11 01:12] LABS: Bordetella Pertussis Not Detected (Not Detect); Chlamydophila pneumoniae Not Detected (Not Detect); Mycoplasma pneumoniae Not Detected (Not Detect); Parainfluenza Virus 3 Not Detected (Not Detect); Parainfluenza Virus 4 Not Detected (Not Detect); Respiratory Syncytial Virus Not Detected (Not Detect)
[2020-08-11] MEDS ORDERED: Naloxone 0.4 MG/ML INJ IVP PRN (02:16)
[2020-08-11] MEDS ORDERED: Acetaminophen 325 MG TABLET PO PRN (02:16)
[2020-08-11] MEDS ORDERED: Dextrose Gel 15 GM/37.5 ML TUBE PO PRN ×2 (02:25)
[2020-08-11] MEDS ORDERED: *HR* Dextrose 50 % in Water (Vial) 50 ML VIAL IVP PRN (02:25)
[2020-08-11] MEDS ORDERED: D5% in Water 1,000 ML IVC PRN (02:25)
[2020-08-11 02:47] LABS: Basophils % 0.3 %; Eosinophils # 0.9 K/mcL (0.0-0.6); Eosinophils % 6.5 %; Hematocrit 28.9 % (35.3-44.9); Hemoglobin 8.8 g/dL (11.5-15.4); Immature Granulocytes % 0.4 % (0-4); Lymphocytes # 1.6 K/mcL (0.6-4.6); Lymphocytes % 11.4 %; Mean Corpuscular HGB Conc 30.4 g/dL (31.6-35.5); Mean Corpuscular Hemoglobin 28.6 pg (28.0-33.3); Mean Corpuscular Volume 93.8 fL (83.0-100.0); Monocytes # 0.4 K/mcL (0.0-1.3); Monocytes % 2.7 %; Neutrophils # 10.9 K/mcL (1.6-8.9); Platelet Count 281 K/mcL (140-400); Red Blood Count 3.08 M/mcL (3.82-4.97); Red Cell Distribution Width 16.6 % (11.5-14.5); Segmented Neutrophils % 78.7 %; White Blood Count 13.9 K/mcL (4.3-11.1)
[2020-08-11 02:53] LABS: INR 1.6; Prothrombin Time 17.9 Seconds (9.4-12.1)
[2020-08-11 03:05] LABS: BUN/Creatinine Ratio 19 (6-26); Blood Urea Nitrogen 19 mg/dL (8-23); Calcium 8.3 mg/dL (8.6-10.3); Carbon Dioxide 17 mEq/L (23-29); Chloride 115 mEq/L (98-107); Glucose 95 mg/dL (70-105); Osmolality,Calculated 292 (280-300); Potassium 3.6 mEq/L (3.5-5.1); Sodium 140 mEq/L (136-145); eGFR For African Americans > 60 (> 60); eGFR For Non-African Americans 55 (> 60)
[2020-08-11] MEDS: cefTRIAXone 2,000 MG in Water for inj. (sterile) 20 ML IVP SCH (04:33)
[2020-08-11] MEDS: Insulin LISPRO 300 UNITS/3 ML VIAL SQ SCH ×4 (07:46→21:11)
[2020-08-11 10:03] LABS: Estimated Average Glucose 114 mg/dl
[2020-08-11] MEDS ORDERED: Ipratropium/Albuterol Neb 3 ML IH PRN (12:08)
[2020-08-11] MEDS: Apixaban 5 MG TABLET PO SCH ×2 (12:43→21:07)
[2020-08-11] MEDS ORDERED: NON-FORMULARY MEDICATION 1 EACH EACH (Naloxone 4 MG) NS PRN (13:04)
[2020-08-11] MEDS: Aspirin 81 MG TAB.CHEW PO SCH (14:34)
[2020-08-11] MEDS: Miconazole 2% ointment 141 APPL/141 GM TUBE TP SCH ×2 (14:36→21:11)
[2020-08-11] MEDS: *HR* LORazepam 1 MG TABLET PO PRN ×2 (14:38→21:14)
[2020-08-11] MEDS: Furosemide 40 MG TABLET PO SCH (17:24)
[2020-08-11] MEDS: Metoprolol 100 MG TABLET PO SCH (21:08)
[2020-08-11] MEDS: Pregabalin 50 MG CAPSULE PO SCH (21:08)
[2020-08-12 01:00] LABS: Hematocrit 34.1 % (35.3-44.9); Mean Corpuscular HGB Conc 29.3 g/dL (31.6-35.5); Mean Corpuscular Hemoglobin 27.3 pg (28.0-33.3); Mean Corpuscular Volume 93.2 fL (83.0-100.0); Mean Platelet Volume 10.4 fL (9.4-12.4); Platelet Count 329 K/mcL (140-400); Red Blood Count 3.66 M/mcL (3.82-4.97); Red Cell Distribution Width 16.9 % (11.5-14.5); White Blood Count 8.9 K/mcL (4.3-11.1)
[2020-08-12 01:19] LABS: BUN/Creatinine Ratio 16 (6-26); Blood Urea Nitrogen 16 mg/dL (8-23); Calcium 9.5 mg/dL (8.6-10.3); Carbon Dioxide 23 mEq/L (23-29); Chloride 110 mEq/L (98-107); Glucose 118 mg/dL (70-105); Magnesium 1.2 mg/dL (1.6-2.6); Osmolality,Calculated 298 (280-300); Potassium 3.5 mEq/L (3.5-5.1); Sodium 143 mEq/L (136-145); eGFR For African Americans > 60 (> 60); eGFR For Non-African Americans 57 (> 60)
[2020-08-12] MEDS: cefTRIAXone 2,000 MG in Water for inj. (sterile) 20 ML IVP SCH (03:46)
[2020-08-12] MEDS: Insulin LISPRO 300 UNITS/3 ML VIAL SQ SCH ×4 (08:00→20:55)
[2020-08-12] MEDS: Aspirin 81 MG TAB.CHEW PO SCH (09:25)
[2020-08-12] MEDS: Pregabalin 50 MG CAPSULE PO SCH ×2 (09:25→20:54)
[2020-08-12] MEDS: Metoprolol 100 MG TABLET PO SCH ×2 (09:25→20:54)
[2020-08-12] MEDS: NIFEdipine XL (24 HR) 30 MG TAB.ER.24 PO SCH (09:25)
[2020-08-12] MEDS: Apixaban 5 MG TABLET PO SCH ×2 (09:26→20:54)
[2020-08-12] MEDS: lisinopriL 10 MG TABLET PO SCH (09:26)
[2020-08-12] MEDS: Furosemide 40 MG TABLET PO SCH ×2 (09:26→18:13)
[2020-08-12] MEDS: Miconazole 2% ointment 141 APPL/141 GM TUBE TP SCH ×2 (12:52→20:55)
[2020-08-12 15:52] LABS: Alanine Aminotransferase 51 Units/L (7-52); Albumin 3.7 g/dL (3.5-5.7); Albumin/Globulin Ratio 1.5 (1.1-2.2); Alkaline Phosphatase 244 Units/L (34-104); Aspartate Amino Transferase 28 Units/L (13-39); Bilirubin,Direct 0.1 mg/dL (0.0-0.2); Bilirubin,Indirect 0.2 mg/dL (0.0-1.0); Bilirubin,Total 0.3 mg/dL (0.3-1.0); Globulin 2.5 g/dL (2.4-3.5); Total Protein 6.2 g/dL (6.4-8.9)
[2020-08-13] MEDS: cefTRIAXone 2,000 MG in Water for inj. (sterile) 20 ML IVP SCH (03:39)
[2020-08-13 08:24] VITALS: BP 126/88
[2020-08-13] MEDS: NIFEdipine XL (24 HR) 30 MG TAB.ER.24 PO SCH (08:56)
[2020-08-13] MEDS: Metoprolol 100 MG TABLET PO SCH (08:57)
[2020-08-13] MEDS: Pregabalin 50 MG CAPSULE PO SCH (08:57)
[2020-08-13] MEDS: Apixaban 5 MG TABLET PO SCH (08:57)
[2020-08-13] MEDS: lisinopriL 10 MG TABLET PO SCH (08:57)
[2020-08-13] MEDS: Furosemide 40 MG TABLET PO SCH (08:57)
[2020-08-13] MEDS: Aspirin 81 MG TAB.CHEW PO SCH (08:57)
[2020-08-13] MEDS: Insulin LISPRO 300 UNITS/3 ML VIAL SQ SCH (08:59)
[2020-08-13] MEDS: Miconazole 2% ointment 141 APPL/141 GM TUBE TP SCH (09:04)
== END 2020-08-13 11:15 | disposition home health service (06) ==
LOC: CDU → SUATTDRO 08-11 → 3BNU 08-11 01:13
PROVIDERS: ADMIT Student in an Organized Health Care Education/Training Program; ATTEND Internal Medicine

== ENCOUNTER 2020-09-14 11:05 | Observation (INO) ==
[2020-09-14 12:29] LABS: Bacteria,Urine Few per hpf (None-Few); Bilirubin,Urine Negative (Negative); Blood,Urine Negative (Negative); Budding Yeast,Urine Few per hpf (None Seen); Clarity,Urine Turbid (Clear); Color,Urine Yellow (Yellow); Glucose,Urine (UA) Normal (Normal); Ketones,Urine Negative (Negative); Leukocyte Esterase,Urine Large (Negative); Mucus,Urine Few per lpf (None-Few); Nitrite,Urine Negative (Negative); PH,Urine 5.5 pH Units (5.0-8.0); Protein,Urine Trace mg/dL (Neg-Trace); Specific Gravity,Urine 1.017 (1.010-1.025); Squamous Epithelial Cell,Urine Moderate per hpf (None-Few); Urobilinogen,Urine Normal (Normal); WBC,Urine TNTC per hpf (0-3)
[2020-09-14] MEDS ORDERED: *HR* OxyCODONE/APAP 10/325 TABLET ONE (15:16)
[2020-09-14] MEDS: *HR* OxyCODONE/APAP 10/325 TABLET PO STA ×2 (15:18→16:53)
[2020-09-14] MEDS ORDERED: cefTRIAXone 1,000 MG in Water for inj. (sterile) 10 ML IVP ONE (16:59)
[2020-09-14] MEDS ORDERED: Naloxone 0.4 MG/ML INJ IVP PRN (17:32)
[2020-09-14] MEDS ORDERED: Ondansetron ODT 4 MG TAB.RAPDIS SL PRN (17:32)
[2020-09-14] MEDS ORDERED: Acetaminophen 325 MG TABLET PO PRN (17:32)
[2020-09-14] MEDS ORDERED: Dextrose Gel 15 GM/37.5 ML TUBE PO PRN ×2 (17:37)
[2020-09-14] MEDS ORDERED: D5% in Water 1,000 ML IVC PRN (17:37)
[2020-09-14] MEDS ORDERED: *HR* Dextrose 50 % in Water (Vial) 50 ML VIAL IVP PRN (17:37)
[2020-09-14 17:49] LABS: Basophils % 0.4 %; Eosinophils # 0.3 K/mcL (0.0-0.6); Eosinophils % 2.6 %; Hemoglobin 9.8 g/dL (11.5-15.4); Immature Granulocytes % 0.5 % (0-4); Lymphocytes # 1.1 K/mcL (0.6-4.6); Lymphocytes % 11.6 %; Mean Corpuscular HGB Conc 30.6 g/dL (31.6-35.5); Mean Corpuscular Hemoglobin 28.8 pg (28.0-33.3); Mean Corpuscular Volume 94.1 fL (83.0-100.0); Mean Platelet Volume 10.4 fL (9.4-12.4); Monocytes # 0.7 K/mcL (0.0-1.3); Monocytes % 7.2 %; Neutrophils # 7.6 K/mcL (1.6-8.9); Platelet Count 311 K/mcL (140-400); Red Cell Distribution Width 16.2 % (11.5-14.5); Segmented Neutrophils % 77.7 %; White Blood Count 9.8 K/mcL (4.3-11.1)
[2020-09-14 18:07] LABS: Calcium 8.9 mg/dL (8.6-10.3); Potassium 3.9 mEq/L (3.5-5.1)
[2020-09-14] MEDS: Metoprolol 100 MG TABLET PO SCH (20:16)
[2020-09-14] MEDS: Apixaban 5 MG TABLET PO SCH (20:16)
[2020-09-14] MEDS: Pregabalin 50 MG CAPSULE PO SCH (20:16)
[2020-09-14] MEDS: Insulin LISPRO 300 UNITS/3 ML VIAL SQ SCH (20:17)
[2020-09-14] MEDS: NIFEdipine XL (24 HR) 30 MG TAB.ER.24 PO SCH (20:17)
[2020-09-14] MEDS: *HR* HYDROcodone/Acet 5/325 mg TABLET PO PRN (20:23)
[2020-09-14] MEDS: Furosemide 40 MG TABLET PO SCH (20:23)
[2020-09-14] MEDS ORDERED: Ringers Solution, Lactated 1,000 ML IVC SCH (21:30)
[2020-09-14 22:28] LABS: Creatinine,Urine 114 mg/dL
[2020-09-15] MEDS: *HR* OxyCODONE Immed Rel 5 MG TABLET PO PRN ×2 (01:09→13:07)
[2020-09-15 02:09] LABS: Hematocrit 32.6 % (35.3-44.9); Hemoglobin 9.9 g/dL (11.5-15.4); Mean Corpuscular HGB Conc 30.4 g/dL (31.6-35.5); Mean Corpuscular Hemoglobin 29.1 pg (28.0-33.3); Mean Corpuscular Volume 95.9 fL (83.0-100.0); Mean Platelet Volume 10.6 fL (9.4-12.4); Platelet Count 335 K/mcL (140-400); Red Cell Distribution Width 16.6 % (11.5-14.5); White Blood Count 10.2 K/mcL (4.3-11.1)
[2020-09-15 02:29] LABS: Calcium 8.7 mg/dL (8.6-10.3); Potassium 4.5 mEq/L (3.5-5.1)
[2020-09-15 06:37] LABS: Calcium 8.7 mg/dL (8.6-10.3); Potassium 4.4 mEq/L (3.5-5.1)
[2020-09-15] MEDS: Budesonide/Formoterol 80/4.5 1 PUFF INH IH SCH ×2 (07:46→23:04)
[2020-09-15] MEDS: NIFEdipine XL (24 HR) 30 MG TAB.ER.24 PO SCH ×2 (08:02→22:19)
[2020-09-15] MEDS: Apixaban 5 MG TABLET PO SCH ×2 (08:02→22:20)
[2020-09-15] MEDS: Furosemide 40 MG TABLET PO SCH ×2 (08:03→18:28)
[2020-09-15] MEDS: Aspirin 81 MG TAB.CHEW PO SCH (08:03)
[2020-09-15] MEDS: Pregabalin 50 MG CAPSULE PO SCH ×2 (08:03→22:20)
[2020-09-15] MEDS: lisinopriL 10 MG TABLET PO SCH (08:04)
[2020-09-15] MEDS: Metoprolol 100 MG TABLET PO SCH ×2 (08:04→22:21)
[2020-09-15] MEDS: Insulin LISPRO 300 UNITS/3 ML VIAL SQ SCH ×4 (11:19→22:33)
[2020-09-15] MEDS: *HR* LORazepam 1 MG TABLET PO PRN (13:07)
[2020-09-15] MEDS ORDERED: Artificial Tears SOLN 15 ML BOTTLE BOTH EYES PRN (14:34)
[2020-09-15] MEDS ORDERED: Chlorhexidine Rinse 15 ML MOUTHWASH MM SCH (14:45)
[2020-09-15] MEDS ORDERED: Pantoprazole 40 MG VIAL IVP SCH (14:45)
[2020-09-15] MEDS ORDERED: Artificial Tears SOLN 15 ML BOTTLE BOTH EYES SCH (16:00)
[2020-09-16 01:36] LABS: Calcium 8.4 mg/dL (8.6-10.3); Potassium 4.6 mEq/L (3.5-5.1)
[2020-09-16] MEDS: *HR* OxyCODONE Immed Rel 5 MG TABLET PO PRN (04:57)
[2020-09-16] MEDS: Furosemide 40 MG TABLET PO SCH (08:45)
[2020-09-16] MEDS: Insulin LISPRO 300 UNITS/3 ML VIAL SQ SCH ×4 (08:45→20:13)
[2020-09-16] MEDS: Metoprolol 100 MG TABLET PO SCH ×2 (08:46→20:02)
[2020-09-16] MEDS: NIFEdipine XL (24 HR) 30 MG TAB.ER.24 PO SCH ×2 (08:47→20:06)
[2020-09-16] MEDS: lisinopriL 10 MG TABLET PO SCH (08:47)
[2020-09-16] MEDS: Aspirin 81 MG TAB.CHEW PO SCH (08:54)
[2020-09-16] MEDS: Pregabalin 50 MG CAPSULE PO SCH ×2 (08:54→20:06)
[2020-09-16] MEDS: Apixaban 5 MG TABLET PO SCH ×2 (08:54→20:01)
[2020-09-16] MEDS: Albumin 25% 25gram/100mL 25 GM/100 ML IV.SOLN IVPB SCH ×2 (08:55→16:20)
[2020-09-16] MEDS: *HR* LORazepam 1 MG TABLET PO PRN ×2 (09:08→20:02)
[2020-09-16] MEDS: Budesonide/Formoterol 80/4.5 1 PUFF INH IH SCH ×2 (10:48→20:02)
[2020-09-17 01:05] LABS: Hematocrit 25.5 % (35.3-44.9); Hemoglobin 7.6 g/dL (11.5-15.4); Mean Corpuscular HGB Conc 29.8 g/dL (31.6-35.5); Mean Corpuscular Hemoglobin 28.9 pg (28.0-33.3); Mean Platelet Volume 10.8 fL (9.4-12.4); Platelet Count 249 K/mcL (140-400); Red Blood Count 2.63 M/mcL (3.82-4.97); Red Cell Distribution Width 16.6 % (11.5-14.5); White Blood Count 7.3 K/mcL (4.3-11.1)
[2020-09-17 01:23] LABS: Calcium 8.5 mg/dL (8.6-10.3); Potassium 4.3 mEq/L (3.5-5.1)
[2020-09-17] MEDS: Budesonide/Formoterol 80/4.5 1 PUFF INH IH SCH ×2 (07:36→19:38)
[2020-09-17] MEDS ORDERED: 0.9 % Sodium Chloride 250 ML IVC SCH (08:30)
[2020-09-17] MEDS ORDERED: 0.9 % Sodium Chloride 250 ML ONE (11:30)
[2020-09-17] MEDS: Insulin LISPRO 300 UNITS/3 ML VIAL SQ SCH ×4 (11:44→20:31)
[2020-09-17] MEDS: Furosemide 40 MG TABLET PO SCH ×2 (11:44→17:42)
[2020-09-17] MEDS: Metoprolol 100 MG TABLET PO SCH ×2 (11:45→21:01)
[2020-09-17] MEDS: Aspirin 81 MG TAB.CHEW PO SCH (11:45)
[2020-09-17] MEDS: NIFEdipine XL (24 HR) 30 MG TAB.ER.24 PO SCH ×2 (11:45→21:14)
[2020-09-17] MEDS: Apixaban 5 MG TABLET PO SCH ×2 (11:45→20:31)
[2020-09-17] MEDS: Pregabalin 50 MG CAPSULE PO SCH ×2 (11:45→20:32)
[2020-09-17 17:21] LABS: Hematocrit 31.1 % (35.3-44.9)
[2020-09-17 17:24] LABS: Hemoglobin 9.5 g/dL (11.5-15.4)
[2020-09-18 04:40] LABS: Hematocrit 31.4 % (35.3-44.9); Hemoglobin 9.5 g/dL (11.5-15.4); Mean Corpuscular HGB Conc 30.3 g/dL (31.6-35.5); Mean Corpuscular Hemoglobin 28.9 pg (28.0-33.3); Mean Corpuscular Volume 95.4 fL (83.0-100.0); Mean Platelet Volume 10.6 fL (9.4-12.4); Platelet Count 278 K/mcL (140-400); Red Blood Count 3.29 M/mcL (3.82-4.97); Red Cell Distribution Width 17.2 % (11.5-14.5); White Blood Count 6.6 K/mcL (4.3-11.1)
[2020-09-18 04:57] LABS: Potassium 4.1 mEq/L (3.5-5.1)
[2020-09-18] MEDS: Budesonide/Formoterol 80/4.5 1 PUFF INH IH SCH ×2 (07:57→20:42)
[2020-09-18] MEDS: Insulin LISPRO 300 UNITS/3 ML VIAL SQ SCH ×4 (08:17→21:09)
[2020-09-18] MEDS: Apixaban 5 MG TABLET PO SCH ×2 (08:29→21:07)
[2020-09-18] MEDS: Pregabalin 50 MG CAPSULE PO SCH ×2 (08:29→21:08)
[2020-09-18] MEDS: NIFEdipine XL (24 HR) 30 MG TAB.ER.24 PO SCH ×2 (08:30→21:30)
[2020-09-18] MEDS: Aspirin 81 MG TAB.CHEW PO SCH (08:30)
[2020-09-18] MEDS: Metoprolol 100 MG TABLET PO SCH ×2 (08:30→21:03)
[2020-09-18] MEDS: Furosemide 40 MG TABLET PO SCH ×2 (08:35→17:00)
[2020-09-18] MEDS: *HR* HYDROcodone/Acet 5/325 mg TABLET PO PRN (15:01)
[2020-09-18] MEDS: *HR* LORazepam 1 MG TABLET PO PRN (21:35)
[2020-09-19 02:41] LABS: Hemoglobin 9.8 g/dL (11.5-15.4); Mean Corpuscular HGB Conc 29.7 g/dL (31.6-35.5); Mean Corpuscular Hemoglobin 29.3 pg (28.0-33.3); Mean Corpuscular Volume 98.8 fL (83.0-100.0); Mean Platelet Volume 10.2 fL (9.4-12.4); Platelet Count 272 K/mcL (140-400); Red Blood Count 3.34 M/mcL (3.82-4.97); Red Cell Distribution Width 16.8 % (11.5-14.5); White Blood Count 7.2 K/mcL (4.3-11.1)
[2020-09-19 03:00] LABS: Calcium 9.5 mg/dL (8.6-10.3); Potassium 4.2 mEq/L (3.5-5.1)
[2020-09-19] MEDS: Budesonide/Formoterol 80/4.5 1 PUFF INH IH SCH ×2 (07:53→20:14)
[2020-09-19] MEDS: Pregabalin 50 MG CAPSULE PO SCH ×2 (09:48→20:27)
[2020-09-19] MEDS: Furosemide 40 MG TABLET PO SCH ×2 (09:49→16:16)
[2020-09-19] MEDS: Apixaban 5 MG TABLET PO SCH ×2 (09:49→20:28)
[2020-09-19] MEDS: Aspirin 81 MG TAB.CHEW PO SCH (09:49)
[2020-09-19] MEDS: Metoprolol 100 MG TABLET PO SCH ×2 (09:49→20:28)
[2020-09-19] MEDS: Insulin LISPRO 300 UNITS/3 ML VIAL SQ SCH ×4 (09:57→20:32)
[2020-09-19] MEDS: *HR* LORazepam 1 MG TABLET PO PRN ×2 (09:59→20:28)
[2020-09-19] MEDS: NIFEdipine XL (24 HR) 30 MG TAB.ER.24 PO SCH ×2 (12:00→20:28)
[2020-09-20 06:10] LABS: Hematocrit 33.7 % (35.3-44.9); Mean Corpuscular HGB Conc 29.7 g/dL (31.6-35.5); Mean Corpuscular Hemoglobin 28.3 pg (28.0-33.3); Mean Corpuscular Volume 95.5 fL (83.0-100.0); Mean Platelet Volume 10.2 fL (9.4-12.4); Platelet Count 328 K/mcL (140-400); Red Blood Count 3.53 M/mcL (3.82-4.97); Red Cell Distribution Width 16.1 % (11.5-14.5); White Blood Count 7.8 K/mcL (4.3-11.1)
[2020-09-20 06:24] LABS: Calcium 9.7 mg/dL (8.6-10.3); Magnesium 1.8 mg/dL (1.6-2.6); Potassium 4.2 mEq/L (3.5-5.1)
[2020-09-20] MEDS: Insulin LISPRO 300 UNITS/3 ML VIAL SQ SCH ×2 (07:37→13:43)
[2020-09-20] MEDS: NIFEdipine XL (24 HR) 30 MG TAB.ER.24 PO SCH (07:38)
[2020-09-20] MEDS: Aspirin 81 MG TAB.CHEW PO SCH (07:39)
[2020-09-20] MEDS: lisinopriL 10 MG TABLET PO SCH (07:40)
[2020-09-20] MEDS: Pregabalin 50 MG CAPSULE PO SCH (07:40)
[2020-09-20] MEDS: Metoprolol 100 MG TABLET PO SCH (07:42)
[2020-09-20] MEDS: Apixaban 5 MG TABLET PO SCH (07:42)
[2020-09-20] MEDS: Furosemide 40 MG TABLET PO SCH (07:42)
[2020-09-20] MEDS: Budesonide/Formoterol 80/4.5 1 PUFF INH IH SCH (08:09)
[2020-09-20 10:47] VITALS: BP 106/69
== END 2020-09-20 16:54 ==
LOC: EMEROOARM 11:05 → 3NENU 11:05 → SUATTDRO 18:26 → 3NENU 19:28
PROVIDERS: ADMIT Internal Medicine; ATTEND Internal Medicine

== ENCOUNTER 2020-12-01 12:26 | Observation (INO) ==
[2020-12-01 13:37] LABS: Basophils # 0.1 K/mcL (0.0-0.2); Basophils % 0.4 %; Eosinophils # 0.2 K/mcL (0.0-0.6); Eosinophils % 0.9 %; Hematocrit 34.7 % (35.3-44.9); Hemoglobin 10.1 g/dL (11.5-15.4); Immature Granulocytes % 0.5 % (0-4); Lymphocytes # 0.9 K/mcL (0.6-4.6); Lymphocytes % 4.8 %; Mean Corpuscular HGB Conc 29.1 g/dL (31.6-35.5); Mean Corpuscular Hemoglobin 28.8 pg (28.0-33.3); Mean Corpuscular Volume 98.9 fL (83.0-100.0); Mean Platelet Volume 10.3 fL (9.4-12.4); Monocytes # 0.9 K/mcL (0.0-1.3); Monocytes % 4.6 %; Platelet Count 269 K/mcL (140-400); Red Blood Count 3.51 M/mcL (3.82-4.97); Red Cell Distribution Width 15.9 % (11.5-14.5); Segmented Neutrophils % 88.8 %; White Blood Count 19.1 K/mcL (4.3-11.1)
[2020-12-01 13:58] LABS: Alanine Aminotransferase 8 Units/L (7-52); Albumin 4.1 g/dL (3.5-5.7); Albumin/Globulin Ratio 1.5 (1.1-2.2); Alkaline Phosphatase 100 Units/L (34-104); Aspartate Amino Transferase 11 Units/L (13-39); BUN/Creatinine Ratio 19 (6-26); Bilirubin,Total 0.5 mg/dL (0.3-1.0); Blood Urea Nitrogen 27 mg/dL (8-23); Calcium 9.4 mg/dL (8.6-10.3); Carbon Dioxide 22 mEq/L (23-29); Chloride 111 mEq/L (98-107); Globulin 2.8 g/dL (2.4-3.5); Glucose 150 mg/dL (70-105); Osmolality,Calculated 304 (280-300); Potassium 3.9 mEq/L (3.5-5.1); Sodium 143 mEq/L (136-145); Total Protein 6.9 g/dL (6.4-8.9); Troponin I < 0.03 ng/mL (< 0.04); eGFR For African Americans 45 (> 60); eGFR For Non-African Americans 37 (> 60)
[2020-12-01 14:59] LABS: Bilirubin,Urine Negative (Negative); Blood,Urine Large (Negative); Clarity,Urine Turbid (Clear); Color,Urine Light-Yellow (Yellow); Glucose,Urine (UA) Normal (Normal); Hyaline Casts,Urine Few per lpf (None Seen); Ketones,Urine Negative (Negative); Leukocyte Esterase,Urine Moderate (Negative); Mucus,Urine Few per lpf (None-Few); Nitrite,Urine Negative (Negative); Protein,Urine Negative (Neg-Trace); RBC,Urine 30-50 per hpf (0-3); Specific Gravity,Urine 1.018 (1.010-1.025); Squamous Epithelial Cell,Urine Moderate per hpf (None-Few); Urobilinogen,Urine Normal (Normal); WBC,Urine 15-30 per hpf (0-3)
[2020-12-01] MEDS ORDERED: cefTRIAXone 1,000 MG in Water for inj. (sterile) 10 ML IVP ONE (15:00)
[2020-12-01] MEDS ORDERED: Ondansetron 4 MG/2 ML VIAL IVP PRN (16:06)
[2020-12-01] MEDS ORDERED: Naloxone 0.4 MG/ML INJ IVP PRN (16:06)
[2020-12-01] MEDS ORDERED: D5% in Water 1,000 ML IVC PRN (16:09)
[2020-12-01] MEDS ORDERED: *HR* Dextrose 50 % in Water (Vial) 50 ML VIAL IVP PRN (16:09)
[2020-12-01] MEDS ORDERED: Dextrose Gel 15 GM/37.5 ML TUBE PO PRN ×2 (16:09)
[2020-12-01] MEDS: Insulin LISPRO 300 UNITS/3 ML VIAL SUBQ SCH ×2 (18:28→20:33)
[2020-12-01] MEDS: Pregabalin 50 MG CAPSULE PO SCH (20:43)
[2020-12-01] MEDS: Apixaban 5 MG TABLET PO SCH (20:43)
[2020-12-01] MEDS: Metoprolol 100 MG TABLET PO SCH (20:43)
[2020-12-02] MEDS: *HR* HYDROcodone/Acet 10/325 mg TABLET PO PRN ×2 (00:58→21:51)
[2020-12-02 08:12] LABS: Basophils # 0.1 K/mcL (0.0-0.2); Basophils % 0.7 %; Eosinophils # 0.5 K/mcL (0.0-0.6); Eosinophils % 4.4 %; Hematocrit 32.8 % (35.3-44.9); Hemoglobin 9.6 g/dL (11.5-15.4); Immature Granulocytes % 0.3 % (0-4); Lymphocytes # 1.5 K/mcL (0.6-4.6); Lymphocytes % 13.5 %; Mean Corpuscular HGB Conc 29.3 g/dL (31.6-35.5); Mean Corpuscular Hemoglobin 28.8 pg (28.0-33.3); Mean Corpuscular Volume 98.5 fL (83.0-100.0); Mean Platelet Volume 10.9 fL (9.4-12.4); Monocytes # 0.8 K/mcL (0.0-1.3); Monocytes % 7.2 %; Neutrophils # 8.5 K/mcL (1.6-8.9); Platelet Count 259 K/mcL (140-400); Red Blood Count 3.33 M/mcL (3.82-4.97); Red Cell Distribution Width 15.7 % (11.5-14.5); Segmented Neutrophils % 73.9 %; White Blood Count 11.4 K/mcL (4.3-11.1)
[2020-12-02 08:30] LABS: BUN/Creatinine Ratio 19 (6-26); Blood Urea Nitrogen 20 mg/dL (8-23); Calcium 9.3 mg/dL (8.6-10.3); Carbon Dioxide 24 mEq/L (23-29); Chloride 112 mEq/L (98-107); Glucose 117 mg/dL (70-105); Osmolality,Calculated 302 (280-300); Potassium 3.7 mEq/L (3.5-5.1); Sodium 144 mEq/L (136-145); eGFR For African Americans > 60 (> 60); eGFR For Non-African Americans 51 (> 60)
[2020-12-02] MEDS: Insulin LISPRO 300 UNITS/3 ML VIAL SUBQ SCH ×4 (08:35→20:01)
[2020-12-02] MEDS: Metoprolol 100 MG TABLET PO SCH ×2 (08:53→20:01)
[2020-12-02] MEDS: Apixaban 5 MG TABLET PO SCH ×2 (08:53→20:01)
[2020-12-02] MEDS: Pregabalin 50 MG CAPSULE PO SCH ×2 (08:54→20:01)
[2020-12-02] MEDS: Aspirin 81 MG TAB.CHEW PO SCH (08:54)
[2020-12-02] MEDS ORDERED: ESCITALOPRAM OXALATE 5 MG PO SCH (09:00)
[2020-12-02] MEDS ORDERED: cefTRIAXone 1,000 MG in 0.9 % Sodium Chloride Mini Bag 100 ML IVPB SCH (09:00)
[2020-12-02] MEDS: Doxycycline 100 MG CAPSULE PO SCH (20:01)
[2020-12-03 03:25] LABS: Basophils # 0.1 K/mcL (0.0-0.2); Basophils % 0.7 %; Eosinophils # 0.5 K/mcL (0.0-0.6); Eosinophils % 7.1 %; Hematocrit 33.5 % (35.3-44.9); Hemoglobin 9.8 g/dL (11.5-15.4); Immature Granulocytes % 0.3 % (0-4); Lymphocytes # 1.3 K/mcL (0.6-4.6); Lymphocytes % 18.8 %; Mean Corpuscular HGB Conc 29.3 g/dL (31.6-35.5); Mean Corpuscular Hemoglobin 29.2 pg (28.0-33.3); Mean Corpuscular Volume 99.7 fL (83.0-100.0); Mean Platelet Volume 10.8 fL (9.4-12.4); Monocytes # 0.5 K/mcL (0.0-1.3); Monocytes % 7.4 %; Neutrophils # 4.5 K/mcL (1.6-8.9); Platelet Count 253 K/mcL (140-400); Red Blood Count 3.36 M/mcL (3.82-4.97); Red Cell Distribution Width 15.4 % (11.5-14.5); Segmented Neutrophils % 65.7 %; White Blood Count 6.9 K/mcL (4.3-11.1)
[2020-12-03 03:40] LABS: BUN/Creatinine Ratio 17 (6-26); Blood Urea Nitrogen 17 mg/dL (8-23); Calcium 9.4 mg/dL (8.6-10.3); Carbon Dioxide 27 mEq/L (23-29); Chloride 111 mEq/L (98-107); Glucose 117 mg/dL (70-105); Osmolality,Calculated 299 (280-300); Potassium 3.8 mEq/L (3.5-5.1); Sodium 143 mEq/L (136-145); eGFR For African Americans > 60 (> 60); eGFR For Non-African Americans 55 (> 60)
[2020-12-03] MEDS: Insulin LISPRO 300 UNITS/3 ML VIAL SUBQ SCH (08:01)
[2020-12-03] MEDS: Pregabalin 50 MG CAPSULE PO SCH (08:01)
[2020-12-03] MEDS: Doxycycline 100 MG CAPSULE PO SCH (08:02)
[2020-12-03] MEDS: Apixaban 5 MG TABLET PO SCH (08:02)
[2020-12-03] MEDS: Aspirin 81 MG TAB.CHEW PO SCH (08:02)
[2020-12-03] MEDS: Metoprolol 100 MG TABLET PO SCH (08:02)
[2020-12-03 11:22] VITALS: BP 124/71
== END 2020-12-03 13:09 | disposition home health service (06) ==
LOC: 3ANU 12:26 → EMEROOARM 12:26 → 3ANU 16:15
PROVIDERS: ADMIT Internal Medicine; ATTEND Internal Medicine

== ENCOUNTER 2020-12-20 18:12 | Inpatient (IN) ==
[2020-12-20] MEDS ORDERED: 0.9 % Sodium Chloride 1,000 ML IVC ONE (18:31)
[2020-12-20 19:03] LABS: Basophils # 0.1 K/mcL (0.0-0.2); Basophils % 0.8 %; Eosinophils # 0.5 K/mcL (0.0-0.6); Eosinophils % 6.7 %; Hematocrit 36.3 % (35.3-44.9); Hemoglobin 10.7 g/dL (11.5-15.4); Immature Granulocytes % 0.4 % (0-4); Lymphocytes # 1.2 K/mcL (0.6-4.6); Lymphocytes % 14.9 %; Mean Corpuscular HGB Conc 29.5 g/dL (31.6-35.5); Mean Corpuscular Hemoglobin 28.8 pg (28.0-33.3); Mean Corpuscular Volume 97.6 fL (83.0-100.0); Mean Platelet Volume 10.7 fL (9.4-12.4); Monocytes # 0.7 K/mcL (0.0-1.3); Monocytes % 8.3 %; Neutrophils # 5.5 K/mcL (1.6-8.9); Platelet Count 295 K/mcL (140-400); Red Blood Count 3.72 M/mcL (3.82-4.97); Red Cell Distribution Width 15.5 % (11.5-14.5); Segmented Neutrophils % 68.9 %; White Blood Count 7.9 K/mcL (4.3-11.1)
[2020-12-20 19:22] LABS: Alanine Aminotransferase 64 Units/L (7-52); Albumin 3.8 g/dL (3.5-5.7); Albumin/Globulin Ratio 1.4 (1.1-2.2); Alkaline Phosphatase 307 Units/L (34-104); Aspartate Amino Transferase 76 Units/L (13-39); BUN/Creatinine Ratio 20 (6-26); Bilirubin,Direct 0.1 mg/dL (0.0-0.2); Bilirubin,Indirect 0.2 mg/dL (0.0-1.0); Bilirubin,Total 0.3 mg/dL (0.3-1.0); Blood Urea Nitrogen 59 mg/dL (8-23); Calcium 9.3 mg/dL (8.6-10.3); Carbon Dioxide 23 mEq/L (23-29); Chloride 108 mEq/L (98-107); Globulin 2.7 g/dL (2.4-3.5); Glucose 221 mg/dL (70-105); Osmolality,Calculated 311 (280-300); Potassium 4.1 mEq/L (3.5-5.1); Sodium 139 mEq/L (136-145); Total Protein 6.5 g/dL (6.4-8.9); eGFR For African Americans 20 (> 60); eGFR For Non-African Americans 16 (> 60)
[2020-12-20 19:46] LABS: Bilirubin,Urine Negative (Negative); Blood,Urine Moderate (Negative); Clarity,Urine Ex.Turbid (Clear); Color,Urine Yellow (Yellow); Glucose,Urine (UA) Normal (Normal); Ketones,Urine Negative (Negative); Leukocyte Esterase,Urine Large (Negative); Nitrite,Urine Negative (Negative); PH,Urine 5.5 pH Units (5.0-8.0); Protein,Urine 50 mg/dL (Neg-Trace); RBC,Urine 30-50 per hpf (0-3); Renal Epithelial Cells,Urine Few per hpf (None-Few); Specific Gravity,Urine 1.015 (1.010-1.025); Squamous Epithelial Cell,Urine Moderate per hpf (None-Few); Urobilinogen,Urine Normal (Normal); WBC,Urine TNTC per hpf (0-3)
[2020-12-20] MEDS ORDERED: Vancomycin 1,500 MG/265 ML IV.SOLN IVPB ONE (19:55)
[2020-12-20 20:05] LABS: ABG Base Excess -3 mEq/L (-2 to 3); ABG HCO3 23 mEq/L (21-27); ABG Oxygen Saturation 87 % (95-98); ABG PCO2 43 mmHg (35-45); ABG PH 7.33 pH Units (7.32-7.45); ABG PO2 57 mmHg (85-104); ABG TCO2 24 mEq/L (20-26)
[2020-12-20 20:11] LABS: Troponin I < 0.03 ng/mL (< 0.04)
[2020-12-20] MEDS ORDERED: Naloxone 0.4 MG/ML INJ IVP PRN (21:12)
[2020-12-20] MEDS ORDERED: Ondansetron ODT 4 MG TAB.RAPDIS SL PRN (21:12)
[2020-12-20] MEDS ORDERED: Dextrose Gel 15 GM/37.5 ML TUBE PO PRN ×2 (21:20)
[2020-12-20] MEDS ORDERED: *HR* Dextrose 50 % in Water (Vial) 50 ML VIAL IVP PRN (21:20)
[2020-12-20] MEDS ORDERED: D5% in Water 1,000 ML IVC PRN (21:20)
[2020-12-20] MEDS: Insulin LISPRO 300 UNITS/3 ML VIAL SUBQ SCH ×2 (23:10)
[2020-12-20] MEDS: 0.9 % Sodium Chloride 1,000 ML IVC SCH (23:20)
[2020-12-20] MEDS: Acetaminophen 325 MG TABLET PO PRN (23:36)
[2020-12-21 06:58] LABS: Basophils % 0.4 %; Eosinophils # 0.4 K/mcL (0.0-0.6); Eosinophils % 5.3 %; Hematocrit 33.4 % (35.3-44.9); Hemoglobin 9.9 g/dL (11.5-15.4); Immature Granulocytes % 0.5 % (0-4); Lymphocytes # 0.6 K/mcL (0.6-4.6); Lymphocytes % 7.2 %; Mean Corpuscular HGB Conc 29.6 g/dL (31.6-35.5); Mean Corpuscular Hemoglobin 29.1 pg (28.0-33.3); Mean Corpuscular Volume 98.2 fL (83.0-100.0); Mean Platelet Volume 11.3 fL (9.4-12.4); Monocytes # 0.3 K/mcL (0.0-1.3); Monocytes % 3.6 %; Neutrophils # 6.9 K/mcL (1.6-8.9); Platelet Count 266 K/mcL (140-400); Red Cell Distribution Width 15.7 % (11.5-14.5); White Blood Count 8.3 K/mcL (4.3-11.1)
[2020-12-21 07:07] LABS: INR 1.3; Prothrombin Time 15.3 Seconds (9.4-12.1)
[2020-12-21 07:20] LABS: Albumin 3.3 g/dL (3.5-5.7); Albumin/Globulin Ratio 1.4 (1.1-2.2); Bilirubin,Total 0.4 mg/dL (0.3-1.0); Calcium 8.6 mg/dL (8.6-10.3); Globulin 2.3 g/dL (2.4-3.5); Magnesium 1.8 mg/dL (1.6-2.6); Phosphorous 4.7 mg/dL (2.7-4.5); Total Protein 5.6 g/dL (6.4-8.9)
[2020-12-21] MEDS: Insulin LISPRO 300 UNITS/3 ML VIAL SUBQ SCH ×4 (07:38→19:46)
[2020-12-21] MEDS: 0.9 % Sodium Chloride 1,000 ML IVC SCH ×2 (08:41→19:53)
[2020-12-21] MEDS: Aspirin 81 MG TAB.CHEW PO SCH (13:32)
[2020-12-21] MEDS: Apixaban 5 MG TABLET PO SCH ×2 (13:32→19:55)
[2020-12-21] MEDS: Budesonide/Formoterol 160/4.5 1 PUFF INH IH SCH ×2 (15:08→22:29)
[2020-12-21] MEDS: *HR* LORazepam 0.5 MG TABLET PO PRN (17:28)
[2020-12-21] MEDS: *HR* HYDROcodone/Acet 10/325 mg TABLET PO PRN (17:28)
[2020-12-21] MEDS: Pregabalin 50 MG CAPSULE PO SCH (19:55)
[2020-12-21] MEDS: Acetaminophen 325 MG TABLET PO PRN (19:55)
[2020-12-22 01:50] LABS: Basophils % 0.5 %; Eosinophils # 0.4 K/mcL (0.0-0.6); Eosinophils % 5.3 %; Hematocrit 30.8 % (35.3-44.9); Hemoglobin 9.3 g/dL (11.5-15.4); Immature Granulocytes % 0.4 % (0-4); Lymphocytes # 1.2 K/mcL (0.6-4.6); Lymphocytes % 14.3 %; Mean Corpuscular HGB Conc 30.2 g/dL (31.6-35.5); Mean Corpuscular Hemoglobin 28.8 pg (28.0-33.3); Mean Corpuscular Volume 95.4 fL (83.0-100.0); Mean Platelet Volume 11.2 fL (9.4-12.4); Monocytes # 0.6 K/mcL (0.0-1.3); Monocytes % 7.4 %; Platelet Count 235 K/mcL (140-400); Red Blood Count 3.23 M/mcL (3.82-4.97); Red Cell Distribution Width 15.7 % (11.5-14.5); Segmented Neutrophils % 72.1 %; White Blood Count 8.3 K/mcL (4.3-11.1)
[2020-12-22 02:04] LABS: Albumin 3.2 g/dL (3.5-5.7); Albumin/Globulin Ratio 1.3 (1.1-2.2); Bilirubin,Total 0.3 mg/dL (0.3-1.0); Calcium 8.6 mg/dL (8.6-10.3); Globulin 2.4 g/dL (2.4-3.5); Magnesium 1.6 mg/dL (1.6-2.6); Phosphorous 3.7 mg/dL (2.7-4.5); Potassium 4.3 mEq/L (3.5-5.1); Total Protein 5.6 g/dL (6.4-8.9)
[2020-12-22] MEDS: Insulin LISPRO 300 UNITS/3 ML VIAL SUBQ SCH ×4 (07:32→20:47)
[2020-12-22] MEDS: Budesonide/Formoterol 160/4.5 1 PUFF INH IH SCH ×2 (08:17→19:42)
[2020-12-22] MEDS: Metoprolol 100 MG TABLET PO SCH (09:14)
[2020-12-22] MEDS: Apixaban 5 MG TABLET PO SCH ×2 (09:14→21:01)
[2020-12-22] MEDS: Pregabalin 50 MG CAPSULE PO SCH ×2 (09:14→21:02)
[2020-12-22] MEDS: Aspirin 81 MG TAB.CHEW PO SCH (09:15)
[2020-12-22] MEDS: 0.9 % Sodium Chloride 1,000 ML IVC SCH ×3 (09:16→23:26)
[2020-12-22] MEDS: *HR* LORazepam 0.5 MG TABLET PO PRN (17:44)
[2020-12-22] MEDS: *HR* HYDROcodone/Acet 10/325 mg TABLET PO PRN ×2 (17:54→23:25)
[2020-12-22] MEDS: Acetaminophen 325 MG TABLET PO PRN (21:05)
[2020-12-23 05:27] LABS: Basophils % 0.7 %; Eosinophils # 0.4 K/mcL (0.0-0.6); Eosinophils % 6.8 %; Hematocrit 30.9 % (35.3-44.9); Immature Granulocytes % 0.2 % (0-4); Lymphocytes % 17.3 %; Mean Corpuscular HGB Conc 29.1 g/dL (31.6-35.5); Mean Corpuscular Hemoglobin 29.3 pg (28.0-33.3); Mean Corpuscular Volume 100.7 fL (83.0-100.0); Monocytes # 0.4 K/mcL (0.0-1.3); Monocytes % 6.9 %; Neutrophils # 3.7 K/mcL (1.6-8.9); Platelet Count 219 K/mcL (140-400); Red Blood Count 3.07 M/mcL (3.82-4.97); Red Cell Distribution Width 15.7 % (11.5-14.5); Segmented Neutrophils % 68.1 %; White Blood Count 5.5 K/mcL (4.3-11.1)
[2020-12-23 05:46] LABS: Magnesium 1.7 mg/dL (1.6-2.6); Phosphorous 3.7 mg/dL (2.7-4.5)
[2020-12-23 05:48] LABS: Calcium 9.1 mg/dL (8.6-10.3); Potassium 4.7 mEq/L (3.5-5.1)
[2020-12-23 07:38] VITALS: BP 126/77
[2020-12-23] MEDS: Insulin LISPRO 300 UNITS/3 ML VIAL SUBQ SCH (07:59)
[2020-12-23] MEDS: Aspirin 81 MG TAB.CHEW PO SCH (08:50)
[2020-12-23] MEDS: Pregabalin 50 MG CAPSULE PO SCH (08:52)
[2020-12-23] MEDS: Apixaban 5 MG TABLET PO SCH (08:52)
[2020-12-23] MEDS: Metoprolol 100 MG TABLET PO SCH (08:52)
[2020-12-23] MEDS: *HR* LORazepam 0.5 MG TABLET PO PRN (08:59)
[2020-12-23] MEDS: *HR* HYDROcodone/Acet 10/325 mg TABLET PO PRN (08:59)
[2020-12-23] MEDS: Budesonide/Formoterol 160/4.5 1 PUFF INH IH SCH (10:46)
== END 2020-12-23 12:00 | disposition home health service (06) | DRG 689 ==
LOC: 3BNU 18:12 → EMEROOARM 18:12 → SUATTDRO 20:55 → 3BNU 21:36
PROVIDERS: ADMIT Family Medicine; ATTEND Internal Medicine

== ENCOUNTER 2021-01-30 16:13 | Observation (INO) ==
[2021-01-30 17:33] LABS: Hematocrit 38.2 % (35.3-44.9); Hemoglobin 11.3 g/dL (11.5-15.4); Mean Corpuscular HGB Conc 29.6 g/dL (31.6-35.5); Mean Corpuscular Hemoglobin 29.4 pg (28.0-33.3); Mean Corpuscular Volume 99.5 fL (83.0-100.0); Mean Platelet Volume 10.7 fL (9.4-12.4); Platelet Count 206 K/mcL (140-400); Red Blood Count 3.84 M/mcL (3.82-4.97); Red Cell Distribution Width 15.1 % (11.5-14.5); White Blood Count 6.2 K/mcL (4.3-11.1)
[2021-01-30 17:42] LABS: Calcium 9.6 mg/dL (8.6-10.3); Potassium 3.6 mEq/L (3.5-5.1)
[2021-01-30 18:06] LABS: Bilirubin,Urine Negative (Negative); Blood,Urine Negative (Negative); Clarity,Urine Clear (Clear); Color,Urine Colorless (Yellow); Glucose,Urine (UA) Normal (Normal); Ketones,Urine Negative (Negative); Leukocyte Esterase,Urine Negative (Negative); Nitrite,Urine Negative (Negative); Protein,Urine Negative (Neg-Trace); Specific Gravity,Urine 1.011 (1.010-1.025); Urobilinogen,Urine Normal (Normal)
[2021-01-30] MEDS ORDERED: Naloxone 0.4 MG/ML INJ IVP PRN (21:51)
[2021-01-30] MEDS ORDERED: D5% in Water 1,000 ML IVC PRN (23:42)
[2021-01-30] MEDS ORDERED: Dextrose Gel 15 GM/37.5 ML TUBE PO PRN ×2 (23:42)
[2021-01-30] MEDS ORDERED: *HR* Dextrose 50 % in Water (Vial) 50 ML VIAL IVP PRN (23:42)
[2021-01-30] MEDS ORDERED: Ondansetron 4 MG/2 ML VIAL IVP PRN (23:43)
[2021-01-30] MEDS ORDERED: Acetaminophen 325 MG TABLET PO PRN (23:43)
[2021-01-31] MEDS: Apixaban 5 MG TABLET PO SCH ×3 (00:13→21:11)
[2021-01-31 01:31] LABS: Basophils # 0.1 K/mcL (0.0-0.2); Eosinophils # 0.4 K/mcL (0.0-0.6); Eosinophils % 8.1 %; Hematocrit 37.2 % (35.3-44.9); Hemoglobin 11.1 g/dL (11.5-15.4); Immature Granulocytes % 0.2 % (0-4); Lymphocytes % 19.9 %; Mean Corpuscular HGB Conc 29.8 g/dL (31.6-35.5); Mean Corpuscular Hemoglobin 30.1 pg (28.0-33.3); Mean Corpuscular Volume 100.8 fL (83.0-100.0); Mean Platelet Volume 11.1 fL (9.4-12.4); Monocytes # 0.5 K/mcL (0.0-1.3); Monocytes % 9.1 %; Platelet Count 199 K/mcL (140-400); Red Blood Count 3.69 M/mcL (3.82-4.97); Segmented Neutrophils % 61.7 %; White Blood Count 4.9 K/mcL (4.3-11.1)
[2021-01-31 02:11] LABS: Albumin 3.5 g/dL (3.5-5.7); Albumin/Globulin Ratio 1.5 (1.1-2.2); Bilirubin,Total 0.4 mg/dL (0.3-1.0); Calcium 9.3 mg/dL (8.6-10.3); Globulin 2.4 g/dL (2.4-3.5); Potassium 3.8 mEq/L (3.5-5.1); Total Protein 5.9 g/dL (6.4-8.9)
[2021-01-31] MEDS: Insulin LISPRO 300 UNITS/3 ML VIAL SUBQ SCH ×4 (08:24→21:13)
[2021-01-31] MEDS ORDERED: Pregabalin 50 MG CAPSULE PO SCH (09:00)
[2021-01-31] MEDS ORDERED: Ipratropium/Albuterol Neb 3 ML IH PRN (09:05)
[2021-01-31] MEDS: *HR* LORazepam 1 MG TABLET PO PRN (22:43)
[2021-01-31 23:15] LABS: Campylobacter by PCR Not detected (Not detect)
[2021-01-31 23:16] LABS: Adenovirus F 40/41 PCR Not detected (Not detect); Astrovirus PCR Not detected (Not detect); Cryptosporidium by PCR Not detected (Not detect); Cyclospora cayetanensis PCR Not detected (Not detect); E. coli O157 by PCR Not detected (Not detect); Entamoeba histolytica PCR Not detected (Not detect); Enteroaggregative E.coli(EAEC) Not detected (Not detect); Enteropathogenic E.coli(EPEC) Not detected (Not detect); Enterotoxigenic E.coli (ETEC) Not detected (Not detect); Giardia lamblia PCR Not detected (Not detect); Norovirus GI/GII PCR Not detected (Not detect); Plesiomonas shigelloides PCR Not detected (Not detect); Rotavirus A PCR Not detected (Not detect); Salmonella PCR Not detected (Not detect); Sapovirus PCR Not detected (Not detect); Shig/EnteroinvasiveE coli EIEC Not detected (Not detect); Shigalike tox-prod E coli STEC Not detected (Not detect); Vibrio PCR Not detected (Not detect); Vibrio cholerae PCR Not detected (Not detect); Yersinia enterocolitica PCR Not detected (Not detect)
[2021-01-31 23:21] LABS: C.difficile Toxin A/B Gene PCR DETECTED (Not detect)
[2021-02-01] MEDS: Insulin LISPRO 300 UNITS/3 ML VIAL SUBQ SCH ×4 (07:58→20:19)
[2021-02-01] MEDS: Apixaban 5 MG TABLET PO SCH ×2 (08:03→20:20)
[2021-02-01] MEDS ORDERED: NON-FORMULARY MEDICATION 1 EACH EACH (Lorazepam [Lorazepam] 2 MG Tablet) PO PRN (08:50)
[2021-02-01] MEDS ORDERED: lisinopriL 5 MG TABLET PO SCH (09:00)
[2021-02-01] MEDS ORDERED: NON-FORMULARY MEDICATION 1 EACH EACH (Escitalopram Oxalate 5 MG Tablet) PO SCH (09:00)
[2021-02-01] MEDS ORDERED: Budesonide/Formoterol 80/4.5 1 PUFF INH IH PRN (09:16)
[2021-02-01] MEDS: Metoprolol 100 MG TABLET PO SCH (10:22)
[2021-02-01] MEDS: Aspirin Enteric Coated 81 MG Tablet PO SCH (10:22)
[2021-02-01] MEDS: *HR* LORazepam 1 MG TABLET PO PRN ×2 (11:34→20:26)
[2021-02-01] MEDS: Vancomycin Oral Soln 125 MG/2.5 ML UDC PO SCH ×4 (11:57→20:20)
[2021-02-01] MEDS ORDERED: lisinopriL 5 MG TABLET PO ONE (12:30)
[2021-02-01 16:09] LABS: Adenovirus Not Detected (Not Detect); Bordetella Pertussis Not Detected (Not Detect); Chlamydophila pneumoniae Not Detected (Not Detect); Coronavirus 229E Not Detected (Not Detect); Coronavirus HKU1 Not Detected (Not Detect); Coronavirus NL63 Not Detected (Not Detect); Coronavirus OC43 Not Detected (Not Detect); Human Metapneumovirus Not Detected (Not Detect); Human Rhinovirus/Enterovirus Not Detected (Not Detect); Influenza A Subtype 2009 H1 Not Detected (Not Detect); Influenza B Not Detected (Not Detect); Mycoplasma pneumoniae Not Detected (Not Detect); Parainfluenza Virus 1 Not Detected (Not Detect); Parainfluenza Virus 2 Not Detected (Not Detect); Parainfluenza Virus 3 Not Detected (Not Detect); Parainfluenza Virus 4 Not Detected (Not Detect); Respiratory Syncytial Virus Not Detected (Not Detect); SARS-CoV-2 Not Detected (Not Detect)
[2021-02-01] MEDS: Pregabalin 50 MG CAPSULE PO SCH (20:20)
[2021-02-02 06:56] LABS: BUN/Creatinine Ratio 18 (6-26); Blood Urea Nitrogen 19 mg/dL (8-23); Calcium 10.2 mg/dL (8.6-10.3); Carbon Dioxide 25 mEq/L (23-29); Chloride 108 mEq/L (98-107); Glucose 120 mg/dL (70-105); Magnesium 1.8 mg/dL (1.6-2.6); Osmolality,Calculated 293 (280-300); Phosphorous 4.1 mg/dL (2.7-4.5); Potassium 4.1 mEq/L (3.5-5.1); Sodium 140 mEq/L (136-145); eGFR For African Americans > 60 (> 60); eGFR For Non-African Americans 52 (> 60)
[2021-02-02] MEDS: Insulin LISPRO 300 UNITS/3 ML VIAL SUBQ SCH (07:42)
[2021-02-02 07:43] VITALS: BP 147/84
[2021-02-02] MEDS: Pregabalin 50 MG CAPSULE PO SCH (07:48)
[2021-02-02] MEDS: Aspirin Enteric Coated 81 MG Tablet PO SCH (07:48)
[2021-02-02] MEDS: Apixaban 5 MG TABLET PO SCH (07:49)
[2021-02-02] MEDS: Vancomycin Oral Soln 125 MG/2.5 ML UDC PO SCH (07:49)
[2021-02-02] MEDS: Metoprolol 100 MG TABLET PO SCH (07:49)
[2021-02-02] MEDS ORDERED: lisinopriL 10 MG TABLET PO SCH (09:00)
== END 2021-02-02 11:08 ==
LOC: 3BNU 16:13 → EMEROOARM 16:13 → SUATTDRO 20:23 → 3BNU 21:41
PROVIDERS: ADMIT Family Medicine; ATTEND Internal Medicine

== ENCOUNTER 2021-03-26 14:00 | Observation (INO) ==
[2021-03-26 15:36] LABS: Basophils # 0.1 K/mcL (0.0-0.2); Basophils % 0.5 %; Eosinophils # 0.4 K/mcL (0.0-0.6); Eosinophils % 3.7 %; Hematocrit 41.3 % (35.3-44.9); Hemoglobin 12.3 g/dL (11.5-15.4); Immature Granulocytes % 0.4 % (0-4); Lymphocytes # 1.2 K/mcL (0.6-4.6); Mean Corpuscular HGB Conc 29.8 g/dL (31.6-35.5); Mean Corpuscular Hemoglobin 30.5 pg (28.0-33.3); Mean Corpuscular Volume 102.5 fL (83.0-100.0); Mean Platelet Volume 10.6 fL (9.4-12.4); Monocytes # 0.6 K/mcL (0.0-1.3); Monocytes % 5.9 %; Neutrophils # 7.7 K/mcL (1.6-8.9); Platelet Count 219 K/mcL (140-400); Red Blood Count 4.03 M/mcL (3.82-4.97); Red Cell Distribution Width 14.2 % (11.5-14.5); Segmented Neutrophils % 77.5 %; White Blood Count 9.9 K/mcL (4.3-11.1)
[2021-03-26 15:45] LABS: INR 1.6; Prothrombin Time 18.3 Seconds (9.4-12.1)
[2021-03-26 15:48] LABS: Activated Partial Thrombo Time 29.1 Seconds (26.0-36.0)
[2021-03-26 15:52] LABS: Alanine Aminotransferase 23 Units/L (7-52); Albumin 3.7 g/dL (3.5-5.7); Albumin/Globulin Ratio 1.5 (1.1-2.2); Alkaline Phosphatase 76 Units/L (34-104); Aspartate Amino Transferase 16 Units/L (13-39); BUN/Creatinine Ratio 20 (6-26); Bilirubin,Direct 0.1 mg/dL (0.0-0.2); Bilirubin,Indirect 0.2 mg/dL (0.0-1.0); Bilirubin,Total 0.3 mg/dL (0.3-1.0); Blood Urea Nitrogen 26 mg/dL (8-23); Calcium 8.4 mg/dL (8.6-10.3); Carbon Dioxide 22 mEq/L (23-29); Chloride 112 mEq/L (98-107); Ethanol < 10 mg/dL (Less than 10); Globulin 2.4 g/dL (2.4-3.5); Glucose 143 mg/dL (70-105); Osmolality,Calculated 301 (280-300); Sodium 142 mEq/L (136-145); Total Protein 6.1 g/dL (6.4-8.9); Troponin I < 0.03 ng/mL (< 0.04); eGFR For African Americans 50 (> 60); eGFR For Non-African Americans 41 (> 60)
[2021-03-26 16:44] LABS: ABG Base Excess -3 mEq/L (-2 to 3); ABG HCO3 24 mEq/L (21-27); ABG Oxygen Saturation 98 % (95-98); ABG PCO2 49 mmHg (35-45); ABG PH 7.29 pH Units (7.32-7.45); ABG PO2 111 mmHg (85-104); ABG TCO2 25 mEq/L (20-26)
[2021-03-26 16:53] LABS: Amphetamine Screen,Urine Negative ng/mL (Cutoff=1000); Barbiturate Screen,Urine Negative ng/mL (Cutoff=200); Benzodiazepines Screen,Urine Negative ng/mL (Cutoff=200); Cannabinoid Screen,Urine Negative ng/mL (Cutoff = 50); Cocaine Screen,Urine Negative ng/mL (Cutoff= 300); Opiate Screen,Urine Positive ng/mL (Cutoff=300); Phencyclidine Screen,Urine Negative ng/mL (Cutoff=25)
[2021-03-26 17:07] LABS: Bacteria,Urine Few per hpf (None-Few); Bilirubin,Urine Negative (Negative); Blood,Urine Negative (Negative); Clarity,Urine Turbid (Clear); Color,Urine Yellow (Yellow); Glucose,Urine (UA) Normal (Normal); Hyaline Casts,Urine Many per lpf (None Seen); Ketones,Urine Negative (Negative); Leukocyte Esterase,Urine Large (Negative); Mucus,Urine Few per lpf (None-Few); Nitrite,Urine Negative (Negative); Protein,Urine Trace mg/dL (Neg-Trace); Specific Gravity,Urine 1.026 (1.010-1.025); Squamous Epithelial Cell,Urine Few per hpf (None-Few); Urobilinogen,Urine Normal (Normal); WBC,Urine 30-50 per hpf (0-3)
[2021-03-26] MEDS ORDERED: Furosemide 40 MG/4 ML VIAL IVP ONE (17:17)
[2021-03-26] MEDS ORDERED: cefTRIAXone 1,000 MG in 0.9 % Sodium Chloride Mini Bag 100 ML IVPB ONE (17:17)
[2021-03-26] MEDS ORDERED: Acetaminophen 325 MG TABLET PO PRN (18:28)
[2021-03-26] MEDS ORDERED: Ondansetron 4 MG/2 ML VIAL IVP PRN (18:28)
[2021-03-26] MEDS ORDERED: Naloxone 0.4 MG/ML INJ IVP PRN (18:28)
[2021-03-26] MEDS ORDERED: *HR* Dextrose 50 % in Water (Vial) 50 ML VIAL IVP PRN (18:32)
[2021-03-26] MEDS ORDERED: D5% in Water 1,000 ML IVC PRN (18:32)
[2021-03-26] MEDS ORDERED: Dextrose Gel 15 GM/37.5 ML TUBE PO PRN ×2 (18:32)
[2021-03-26] MEDS ORDERED: Ipratropium/Albuterol Neb 3 ML IH PRN (18:55)
[2021-03-26] MEDS ORDERED: 0.9 % Sodium Chloride 1,000 ML IVC SCH (19:00)
[2021-03-26] MEDS: Insulin LISPRO 300 UNITS/3 ML VIAL SUBQ SCH (22:31)
[2021-03-26] MEDS: Apixaban 5 MG TABLET PO SCH (22:36)
[2021-03-27 02:10] LABS: Adenovirus Not Detected (Not Detect); Coronavirus 229E Not Detected (Not Detect); Coronavirus HKU1 Not Detected (Not Detect); Coronavirus NL63 Not Detected (Not Detect); Coronavirus OC43 Not Detected (Not Detect)
[2021-03-27 02:11] LABS: Bordetella Pertussis Not Detected (Not Detect); Chlamydophila pneumoniae Not Detected (Not Detect); Human Metapneumovirus Not Detected (Not Detect); Human Rhinovirus/Enterovirus Not Detected (Not Detect); Influenza A Subtype 2009 H1 Not Detected (Not Detect); Influenza B Not Detected (Not Detect); Mycoplasma pneumoniae Not Detected (Not Detect); Parainfluenza Virus 1 Not Detected (Not Detect); Parainfluenza Virus 2 Not Detected (Not Detect); Parainfluenza Virus 3 Not Detected (Not Detect); Parainfluenza Virus 4 Not Detected (Not Detect); Respiratory Syncytial Virus Not Detected (Not Detect); SARS-CoV-2 DETECTED (Not Detect)
[2021-03-27] MEDS ORDERED: Ipratropium 1 PUFF INHALER IH PRN (04:04)
[2021-03-27 05:28] LABS: VBG HCO3 25 mEq/L (21-27); VBG PCO2 44 mmHg (41-51); VBG PH 7.35 pH Units (7.32-7.42); VBG PO2 66 mmHg (25-50)
[2021-03-27 05:29] LABS: Basophils % 0.4 %; Eosinophils # 0.4 K/mcL (0.0-0.6); Hematocrit 37.6 % (35.3-44.9); Hemoglobin 11.4 g/dL (11.5-15.4); Immature Granulocytes % 0.2 % (0-4); Lymphocytes # 1.2 K/mcL (0.6-4.6); Mean Corpuscular HGB Conc 30.3 g/dL (31.6-35.5); Mean Corpuscular Hemoglobin 30.8 pg (28.0-33.3); Mean Corpuscular Volume 101.6 fL (83.0-100.0); Mean Platelet Volume 10.5 fL (9.4-12.4); Monocytes # 0.5 K/mcL (0.0-1.3); Monocytes % 5.8 %; Neutrophils # 6.3 K/mcL (1.6-8.9); Platelet Count 183 K/mcL (140-400); Segmented Neutrophils % 74.6 %; White Blood Count 8.5 K/mcL (4.3-11.1)
[2021-03-27 05:50] LABS: Albumin 3.4 g/dL (3.5-5.7); Albumin/Globulin Ratio 1.5 (1.1-2.2); Bilirubin,Direct 0.1 mg/dL (0.0-0.2); Bilirubin,Indirect 0.3 mg/dL (0.0-1.0); Bilirubin,Total 0.4 mg/dL (0.3-1.0); Calcium 8.7 mg/dL (8.6-10.3); Globulin 2.2 g/dL (2.4-3.5); Magnesium 1.7 mg/dL (1.6-2.6); Potassium 3.9 mEq/L (3.5-5.1); Total Protein 5.6 g/dL (6.4-8.9)
[2021-03-27 06:03] LABS: Thyroid Stimulating Hormone 0.655 mcIU/mL (0.340-5.600)
[2021-03-27 07:20] LABS: Estimated Average Glucose 163 mg/dl; Hemoglobin A1C 7.3 %
[2021-03-27] MEDS ORDERED: Azithromycin 500 MG in 0.9 % Sodium Chloride 250 ML IVPB SCH (08:00)
[2021-03-27] MEDS: Ipratropium 1 PUFF INHALER IH SCH ×5 (08:05→23:23)
[2021-03-27] MEDS: Insulin LISPRO 300 UNITS/3 ML VIAL SUBQ SCH ×4 (08:12→22:28)
[2021-03-27] MEDS: Loratadine 10 MG TABLET PO SCH (08:25)
[2021-03-27] MEDS: cefTRIAXone 1,000 MG in Water for inj. (sterile) 10 ML IVP SCH (08:25)
[2021-03-27] MEDS: Apixaban 5 MG TABLET PO SCH ×2 (08:25→22:27)
[2021-03-27] MEDS ORDERED: cefTRIAXone 1,000 MG in 0.9 % Sodium Chloride Mini Bag 100 ML IVPB SCH (09:00)
[2021-03-27] MEDS ORDERED: *HR* LORazepam 0.5 MG TABLET PO PRN (12:55)
[2021-03-27] MEDS: *HR* HYDROcodone/Acet 5/325 mg TABLET PO PRN (18:09)
[2021-03-27] MEDS: Metoprolol 100 MG TABLET PO SCH (22:27)
[2021-03-27] MEDS: Pregabalin 50 MG CAPSULE PO SCH (22:27)
[2021-03-28] MEDS: Ipratropium 1 PUFF INHALER IH SCH ×5 (03:48→20:17)
[2021-03-28 05:48] LABS: Basophils % 0.1 %; Hemoglobin 12.6 g/dL (11.5-15.4); Immature Granulocytes % 0.4 % (0-4); Lymphocytes # 0.9 K/mcL (0.6-4.6); Lymphocytes % 9.4 %; Mean Corpuscular HGB Conc 30.7 g/dL (31.6-35.5); Mean Corpuscular Volume 97.6 fL (83.0-100.0); Mean Platelet Volume 11.2 fL (9.4-12.4); Monocytes # 0.4 K/mcL (0.0-1.3); Monocytes % 4.1 %; Platelet Count 211 K/mcL (140-400); Red Cell Distribution Width 13.7 % (11.5-14.5); White Blood Count 9.3 K/mcL (4.3-11.1)
[2021-03-28 05:49] LABS: VBG HCO3 24 mEq/L (21-27); VBG PCO2 41 mmHg (41-51); VBG PH 7.39 pH Units (7.32-7.42); VBG PO2 101 mmHg (25-50)
[2021-03-28 05:58] LABS: Fibrinogen 458 mg/dL (169-393)
[2021-03-28 05:59] LABS: D-Dimer 683 ng/mLFEU (0-500)
[2021-03-28 06:09] LABS: BUN/Creatinine Ratio 20 (6-26); Blood Urea Nitrogen 20 mg/dL (8-23); Calcium 9.3 mg/dL (8.6-10.3); Carbon Dioxide 23 mEq/L (23-29); Chloride 111 mEq/L (98-107); Glucose 229 mg/dL (70-105); Magnesium 1.8 mg/dL (1.6-2.6); Osmolality,Calculated 302 (280-300); Potassium 4.3 mEq/L (3.5-5.1); Sodium 141 mEq/L (136-145); eGFR For African Americans > 60 (> 60); eGFR For Non-African Americans 57 (> 60)
[2021-03-28] MEDS: lisinopriL 10 MG TABLET PO SCH (08:28)
[2021-03-28] MEDS: Metoprolol 100 MG TABLET PO SCH ×2 (08:28→20:45)
[2021-03-28] MEDS: Aspirin Enteric Coated 81 MG Tablet PO SCH (08:28)
[2021-03-28] MEDS: Loratadine 10 MG TABLET PO SCH (08:28)
[2021-03-28] MEDS: Pregabalin 50 MG CAPSULE PO SCH ×2 (08:28→20:45)
[2021-03-28] MEDS: Apixaban 5 MG TABLET PO SCH ×2 (08:29→20:45)
[2021-03-28] MEDS: Azithromycin 250 MG TABLET PO SCH (08:29)
[2021-03-28] MEDS: cefTRIAXone 1,000 MG in Water for inj. (sterile) 10 ML IVP SCH (08:31)
[2021-03-28] MEDS: Insulin LISPRO 300 UNITS/3 ML VIAL SUBQ SCH ×4 (08:31→20:51)
[2021-03-28] MEDS: CITALOPRAM HYDROBROMIDE 5 MG PO SCH (08:34)
[2021-03-28] MEDS: amLODIPine 5 MG TABLET PO SCH (15:56)
[2021-03-28] MEDS: Fluconazole 100 MG TABLET PO SCH (15:57)
[2021-03-29] MEDS: Ipratropium 1 PUFF INHALER IH SCH ×7 (00:15→23:25)
[2021-03-29] MEDS: *HR* LORazepam 1 MG TABLET PO PRN ×2 (09:32→19:53)
[2021-03-29] MEDS: Pregabalin 50 MG CAPSULE PO SCH ×2 (09:32→19:53)
[2021-03-29] MEDS: Fluconazole 100 MG TABLET PO SCH (09:32)
[2021-03-29] MEDS: amLODIPine 5 MG TABLET PO SCH (09:33)
[2021-03-29] MEDS: Azithromycin 250 MG TABLET PO SCH (09:33)
[2021-03-29] MEDS: Aspirin Enteric Coated 81 MG Tablet PO SCH (09:33)
[2021-03-29] MEDS: lisinopriL 10 MG TABLET PO SCH (09:33)
[2021-03-29] MEDS: Metoprolol 100 MG TABLET PO SCH ×2 (09:33→19:53)
[2021-03-29] MEDS: Apixaban 5 MG TABLET PO SCH ×2 (09:33→19:53)
[2021-03-29] MEDS: Loratadine 10 MG TABLET PO SCH (09:33)
[2021-03-29] MEDS: CITALOPRAM HYDROBROMIDE 5 MG PO SCH (09:35)
[2021-03-29] MEDS: Insulin LISPRO 300 UNITS/3 ML VIAL SUBQ SCH ×4 (09:37→21:46)
[2021-03-30] MEDS: Ipratropium 1 PUFF INHALER IH SCH ×6 (03:58→23:33)
[2021-03-30 06:42] LABS: BUN/Creatinine Ratio 35 (6-26); Blood Urea Nitrogen 36 mg/dL (8-23); Calcium 10.3 mg/dL (8.6-10.3); Carbon Dioxide 26 mEq/L (23-29); Chloride 103 mEq/L (98-107); Glucose 278 mg/dL (70-105); Osmolality,Calculated 302 (280-300); Potassium 4.5 mEq/L (3.5-5.1); Sodium 137 mEq/L (136-145); eGFR For African Americans > 60 (> 60); eGFR For Non-African Americans 54 (> 60)
[2021-03-30] MEDS: Fluconazole 100 MG TABLET PO SCH (08:23)
[2021-03-30] MEDS: Pregabalin 50 MG CAPSULE PO SCH ×2 (08:23→21:28)
[2021-03-30] MEDS: amLODIPine 5 MG TABLET PO SCH (08:23)
[2021-03-30] MEDS: Loratadine 10 MG TABLET PO SCH (08:23)
[2021-03-30] MEDS: Aspirin Enteric Coated 81 MG Tablet PO SCH (08:23)
[2021-03-30] MEDS: Azithromycin 250 MG TABLET PO SCH (08:23)
[2021-03-30] MEDS: Apixaban 5 MG TABLET PO SCH ×2 (08:23→21:28)
[2021-03-30] MEDS: lisinopriL 10 MG TABLET PO SCH (08:23)
[2021-03-30] MEDS: Metoprolol 100 MG TABLET PO SCH ×2 (08:23→21:28)
[2021-03-30] MEDS: CITALOPRAM HYDROBROMIDE 5 MG PO SCH (08:24)
[2021-03-30] MEDS: Insulin LISPRO 300 UNITS/3 ML VIAL SUBQ SCH ×4 (08:24→21:29)
[2021-03-30] MEDS: *HR* LORazepam 1 MG TABLET PO PRN ×2 (08:48→22:32)
[2021-03-31] MEDS: Ipratropium 1 PUFF INHALER IH SCH ×2 (04:12→04:15)
[2021-03-31] MEDS: Insulin LISPRO 300 UNITS/3 ML VIAL SUBQ SCH ×4 (07:47→20:47)
[2021-03-31] MEDS: Aspirin Enteric Coated 81 MG Tablet PO SCH (07:49)
[2021-03-31] MEDS: amLODIPine 5 MG TABLET PO SCH (07:50)
[2021-03-31] MEDS: Fluconazole 100 MG TABLET PO SCH (07:50)
[2021-03-31] MEDS: Loratadine 10 MG TABLET PO SCH (07:50)
[2021-03-31] MEDS: Metoprolol 100 MG TABLET PO SCH ×2 (07:50→20:47)
[2021-03-31] MEDS: lisinopriL 10 MG TABLET PO SCH (07:50)
[2021-03-31] MEDS: Azithromycin 250 MG TABLET PO SCH (07:50)
[2021-03-31] MEDS: Apixaban 5 MG TABLET PO SCH ×2 (07:51→20:47)
[2021-03-31] MEDS: Pregabalin 50 MG CAPSULE PO SCH ×2 (07:52→20:47)
[2021-03-31] MEDS: *HR* LORazepam 1 MG TABLET PO PRN ×2 (08:09→21:03)
[2021-03-31] MEDS: Tiotropium 10 INH DOSE IH SCH (09:44)
[2021-04-01] MEDS: Loratadine 10 MG TABLET PO SCH (08:09)
[2021-04-01] MEDS: Pregabalin 50 MG CAPSULE PO SCH ×2 (08:09→20:21)
[2021-04-01] MEDS: Aspirin Enteric Coated 81 MG Tablet PO SCH (08:09)
[2021-04-01] MEDS: *HR* LORazepam 1 MG TABLET PO PRN ×2 (08:09→20:23)
[2021-04-01] MEDS: amLODIPine 5 MG TABLET PO SCH (08:10)
[2021-04-01] MEDS: Metoprolol 100 MG TABLET PO SCH ×2 (08:10→20:21)
[2021-04-01] MEDS: Apixaban 5 MG TABLET PO SCH ×2 (08:10→20:21)
[2021-04-01] MEDS: lisinopriL 10 MG TABLET PO SCH (08:10)
[2021-04-01] MEDS: Fluconazole 100 MG TABLET PO SCH (08:10)
[2021-04-01] MEDS: Insulin LISPRO 300 UNITS/3 ML VIAL SUBQ SCH ×4 (08:11→20:23)
[2021-04-01] MEDS: Tiotropium 10 INH DOSE IH SCH (10:50)
[2021-04-01] MEDS: *HR* HYDROcodone/Acet 5/325 mg TABLET PO PRN (16:22)
[2021-04-02] MEDS: Tiotropium 10 INH DOSE IH SCH (07:58)
[2021-04-02] MEDS: Fluconazole 100 MG TABLET PO SCH (08:22)
[2021-04-02] MEDS: Pregabalin 50 MG CAPSULE PO SCH (08:22)
[2021-04-02] MEDS: Loratadine 10 MG TABLET PO SCH (08:23)
[2021-04-02] MEDS: *HR* LORazepam 1 MG TABLET PO PRN (08:23)
[2021-04-02] MEDS: Apixaban 5 MG TABLET PO SCH (08:23)
[2021-04-02] MEDS: amLODIPine 5 MG TABLET PO SCH (08:23)
[2021-04-02] MEDS: lisinopriL 10 MG TABLET PO SCH (08:23)
[2021-04-02] MEDS: Aspirin Enteric Coated 81 MG Tablet PO SCH (08:23)
[2021-04-02] MEDS: Metoprolol 100 MG TABLET PO SCH (08:23)
[2021-04-02] MEDS: Insulin LISPRO 300 UNITS/3 ML VIAL SUBQ SCH ×2 (08:24→11:33)
[2021-04-02 10:45] VITALS: BP 122/74
[2021-04-02] MEDS: *HR* HYDROcodone/Acet 5/325 mg TABLET PO PRN (12:15)
== END 2021-04-02 13:49 ==
LOC: EMEROOARM 14:00 → 2ANU 14:00 → SUATTDRO 18:28 → 2ANU 18:52
PROVIDERS: ADMIT Pharmacist; ATTEND Internal Medicine

== ENCOUNTER 2021-08-22 15:37 | Observation (INO) ==
[2021-08-22] MEDS ORDERED: 0.9 % Sodium Chloride 1,000 ML IVC ONE (15:48)
[2021-08-22] MEDS ORDERED: Aspirin 325 MG TABLET PO ONE (15:50)
[2021-08-22 16:37] LABS: Bacteria,Urine Few per hpf (None-Few); Bilirubin,Urine Negative (Negative); Blood,Urine Negative (Negative); Budding Yeast,Urine Few per hpf (None Seen); Clarity,Urine Clear (Clear); Color,Urine Light-Yellow (Yellow); Glucose,Urine (UA) >=1000 mg/dL (Normal); Ketones,Urine Negative (Negative); Leukocyte Esterase,Urine Large (Negative); Mucus,Urine Few per lpf (None-Few); Nitrite,Urine Negative (Negative); PH,Urine 5.5 pH Units (5.0-8.0); Protein,Urine Trace mg/dL (Neg-Trace); RBC,Urine 0-3 per hpf (0-3); Specific Gravity,Urine 1.016 (1.010-1.025); Squamous Epithelial Cell,Urine Few per hpf (None-Few); Urobilinogen,Urine Normal (Normal); WBC,Urine 50-100 per hpf (0-3)
[2021-08-22 17:00] LABS: Basophils # 0.1 K/mcL (0.0-0.2); Basophils % 0.5 %; Eosinophils # 0.3 K/mcL (0.0-0.6); Hematocrit 41.5 % (35.3-44.9); Hemoglobin 12.7 g/dL (11.5-15.4); Immature Granulocytes % 0.6 % (0-4); Lymphocytes # 0.7 K/mcL (0.6-4.6); Lymphocytes % 7.6 %; Mean Corpuscular HGB Conc 30.6 g/dL (31.6-35.5); Mean Corpuscular Hemoglobin 31.4 pg (28.0-33.3); Mean Corpuscular Volume 102.5 fL (83.0-100.0); Mean Platelet Volume 10.9 fL (9.4-12.4); Monocytes # 0.4 K/mcL (0.0-1.3); Monocytes % 4.5 %; Neutrophils # 7.9 K/mcL (1.6-8.9); Platelet Count 182 K/mcL (140-400); Red Blood Count 4.05 M/mcL (3.82-4.97); Segmented Neutrophils % 83.8 %; White Blood Count 9.5 K/mcL (4.3-11.1)
[2021-08-22 17:15] LABS: Influenza A PCR Negative (Negative); Influenza B PCR Negative (Negative); Resp. Syncytial Virus PCR Negative (Negative); SARS-CoV-2 by PCR (In House) Negative (Negative)
[2021-08-22] MEDS ORDERED: 0.9 % Sodium Chloride 500 ML IV ONE (17:24)
[2021-08-22 17:36] LABS: Alanine Aminotransferase 91 Units/L (7-52); Albumin 3.7 g/dL (3.5-5.7); Albumin/Globulin Ratio 1.9 (1.1-2.2); Alkaline Phosphatase 101 Units/L (34-104); Aspartate Amino Transferase 128 Units/L (13-39); BUN/Creatinine Ratio 16 (6-26); Bilirubin,Direct 0.1 mg/dL (0.0-0.2); Bilirubin,Indirect 0.3 mg/dL (0.0-1.0); Bilirubin,Total 0.4 mg/dL (0.3-1.0); Blood Urea Nitrogen 20 mg/dL (8-23); Calcium 9.1 mg/dL (8.6-10.3); Carbon Dioxide 23 mEq/L (23-29); Chloride 107 mEq/L (98-107); Glucose 406 mg/dL (70-105); Osmolality,Calculated 306 (280-300); Sodium 138 mEq/L (136-145); Total Protein 5.7 g/dL (6.4-8.9); Troponin I < 0.03 ng/mL (< 0.04); eGFR For African Americans 53 (> 60); eGFR For Non-African Americans 44 (> 60)
[2021-08-22] MEDS ORDERED: cefTRIAXone 1,000 MG in 0.9 % Sodium Chloride Mini Bag 100 ML IVPB ONE (18:23)
[2021-08-22 18:30] LABS: INR 1.8
[2021-08-22] MEDS ORDERED: Azithromycin 500 MG in 0.9 % Sodium Chloride 250 ML IVPB ONE (18:31)
[2021-08-22 18:33] LABS: Activated Partial Thrombo Time 32.3 Seconds (26.0-36.0)
[2021-08-22] MEDS ORDERED: cefTRIAXone 1,000 MG in Water for inj. (sterile) 10 ML IVP ONE (18:53)
[2021-08-22] MEDS ORDERED: Naloxone 0.4 MG/ML INJ IVP PRN (19:10)
[2021-08-22] MEDS ORDERED: Melatonin 3 MG TABLET PO PRN (19:10)
[2021-08-22] MEDS ORDERED: *HR* Dextrose 50 % in Water (Syg) 50 ML SYRINGE IVP PRN (19:16)
[2021-08-22] MEDS ORDERED: D5% in Water 1,000 ML IVC PRN (19:16)
[2021-08-22] MEDS ORDERED: Dextrose Gel 15 GM/37.5 ML TUBE PO PRN ×2 (19:16)
[2021-08-22] MEDS ORDERED: Isovue-370 500 ML BOTTLE IVP ONE (20:09)
[2021-08-22] MEDS ORDERED: Insulin LISPRO 300 UNITS/3 ML VIAL SUBQ SCH (21:00)
[2021-08-22] MEDS ORDERED: *HR* LORazepam 1 MG TABLET PO PRN (21:05)
[2021-08-22] MEDS: Apixaban 5 MG TABLET PO SCH (22:41)
[2021-08-23 05:12] LABS: Hematocrit 38.4 % (35.3-44.9); Hemoglobin 11.9 g/dL (11.5-15.4); Mean Corpuscular Hemoglobin 31.6 pg (28.0-33.3); Mean Corpuscular Volume 101.9 fL (83.0-100.0); Platelet Count 173 K/mcL (140-400); Red Blood Count 3.77 M/mcL (3.82-4.97); Red Cell Distribution Width 13.1 % (11.5-14.5)
[2021-08-23 05:21] LABS: Calcium 8.9 mg/dL (8.6-10.3)
[2021-08-23 05:23] LABS: Albumin 3.4 g/dL (3.5-5.7); Albumin/Globulin Ratio 1.7 (1.1-2.2); Bilirubin,Direct 0.1 mg/dL (0.0-0.2); Bilirubin,Indirect 0.3 mg/dL (0.0-1.0); Bilirubin,Total 0.4 mg/dL (0.3-1.0); Total Protein 5.4 g/dL (6.4-8.9)
[2021-08-23 06:43] VITALS: BP 145/84; PULSE 81; TEMP 97.8; O2SAT 97
[2021-08-23] MEDS ORDERED: Insulin LISPRO 300 UNITS/3 ML VIAL SUBQ SCH (07:30)
[2021-08-23] MEDS: Apixaban 5 MG TABLET PO SCH (08:06)
[2021-08-23] MEDS ORDERED: Regadenoson 0.4 MG/5 ML SYRINGE IVP ONE (08:35)
[2021-08-23 08:38] LABS: Hepatitis B Surface Antigen Nonreactive (Nonreactive)
[2021-08-23 09:06] LABS: Hepatitis B Core IgM Nonreactive (Nonreactive)
[2021-08-23 09:07] LABS: Hepatitis C Virus Antibody Nonreactive (Nonreactive)
[2021-08-23 09:08] LABS: Hepatitis A Antibody IgM Nonreactive (Nonreactive)
[2021-08-23] MEDS ORDERED: Tiotropium 10 INH DOSE IH SCH (10:00)
[2021-08-23] MEDS ORDERED: *HR* LORazepam 1 MG TABLET PO PRN (11:49)
[2021-08-23] MEDS ORDERED: Aspirin Enteric Coated 81 MG Tablet PO SCH (12:00)
[2021-08-23] MEDS ORDERED: Metoprolol 100 MG TABLET PO SCH (12:00)
[2021-08-23] MEDS ORDERED: Furosemide 40 MG TABLET PO SCH (17:00)
[2021-08-23] MEDS ORDERED: cefTRIAXone 1,000 MG in Water for inj. (sterile) 10 ML IVP SCH (18:00)
[2021-08-23] MEDS ORDERED: Pregabalin 50 MG CAPSULE PO SCH (21:00)
[2021-08-24] MEDS ORDERED: lisinopriL 10 MG TABLET PO SCH (09:00)
== END 2021-08-23 13:32 | disposition home or self-care (01) ==
LOC: 3ANU 15:37 → EMEROOARM 15:37 → SUATTDRO 19:23 → 3ANU 20:46
PROVIDERS: ADMIT General Practice; ATTEND Internal Medicine

== ENCOUNTER 2021-10-26 03:24 | Inpatient (IN) ==
[2021-10-26] MEDS ORDERED: methylPREDNISolone 125 MG/2 ML VIAL IVP ONE (03:45)
[2021-10-26] MEDS ORDERED: Ipratropium/Albuterol Neb 3 ML IH ONE (03:45)
[2021-10-26 04:09] LABS: Basophils # 0.1 K/mcL (0.0-0.2); Basophils % 0.6 %; Eosinophils # 0.3 K/mcL (0.0-0.6); Eosinophils % 3.1 %; Hematocrit 42.5 % (35.3-44.9); Hemoglobin 13.1 g/dL (11.5-15.4); Immature Granulocytes % 0.3 % (0-4); Lymphocytes # 1.1 K/mcL (0.6-4.6); Lymphocytes % 11.6 %; Mean Corpuscular HGB Conc 30.8 g/dL (31.6-35.5); Mean Corpuscular Hemoglobin 31.2 pg (28.0-33.3); Mean Corpuscular Volume 101.2 fL (83.0-100.0); Mean Platelet Volume 10.7 fL (9.4-12.4); Monocytes # 0.5 K/mcL (0.0-1.3); Monocytes % 5.5 %; Neutrophils # 7.7 K/mcL (1.6-8.9); Platelet Count 215 K/mcL (140-400); Red Cell Distribution Width 13.5 % (11.5-14.5); Segmented Neutrophils % 78.9 %; White Blood Count 9.7 K/mcL (4.3-11.1)
[2021-10-26] MEDS ORDERED: Furosemide 40 MG/4 ML VIAL IVP ONE (04:16)
[2021-10-26 04:32] LABS: Calcium 9.2 mg/dL (8.6-10.3); Potassium 3.6 mEq/L (3.5-5.1); Troponin I 0.03 ng/mL (< 0.04)
[2021-10-26] MEDS ORDERED: Insulin Human Regular 10 UNIT in 0.9 % Sodium Chloride 10 ML IV ONE (05:26)
[2021-10-26] MEDS ORDERED: Acetaminophen 325 MG TABLET PO PRN (05:48)
[2021-10-26] MEDS ORDERED: *HR* Promethazine 25 MG/ML VIAL IM PRN (05:48)
[2021-10-26] MEDS ORDERED: Naloxone 0.4 MG/ML INJ IVP PRN (05:48)
[2021-10-26] MEDS ORDERED: Melatonin 3 MG TABLET PO PRN (05:48)
[2021-10-26] MEDS ORDERED: Dextrose Gel 15 GM/37.5 ML TUBE PO PRN ×2 (06:37)
[2021-10-26] MEDS ORDERED: D5% in Water 1,000 ML IVC PRN (06:37)
[2021-10-26] MEDS ORDERED: *HR* Dextrose 50 % in Water (Syg) 50 ML SYRINGE IVP PRN (06:37)
[2021-10-26 07:17] LABS: Adenovirus Not Detected (Not Detect); Bordetella Pertussis Not Detected (Not Detect); Chlamydophila pneumoniae Not Detected (Not Detect); Coronavirus 229E Not Detected (Not Detect); Coronavirus HKU1 Not Detected (Not Detect); Coronavirus NL63 Not Detected (Not Detect); Coronavirus OC43 Not Detected (Not Detect); Human Metapneumovirus Not Detected (Not Detect); Human Rhinovirus/Enterovirus Not Detected (Not Detect); Influenza A Subtype 2009 H1 Not Detected (Not Detect); Influenza B Not Detected (Not Detect); Mycoplasma pneumoniae Not Detected (Not Detect); Parainfluenza Virus 1 Not Detected (Not Detect); Parainfluenza Virus 2 Not Detected (Not Detect); Parainfluenza Virus 3 Not Detected (Not Detect); Parainfluenza Virus 4 Not Detected (Not Detect); Respiratory Syncytial Virus Not Detected (Not Detect); SARS-CoV-2 Not Detected (Not Detect)
[2021-10-26] MEDS ORDERED: Insulin LISPRO 300 UNITS/3 ML VIAL SUBQ SCH (07:30)
[2021-10-26] MEDS: Ipratropium/Albuterol Neb 3 ML IH SCH ×3 (08:20→20:54)
[2021-10-26] MEDS ORDERED: Furosemide 20 MG/2 ML VIAL IVP SCH (09:00)
[2021-10-26] MEDS ORDERED: Insulin DETEMIR 100 UNIT/ML X5UNITS SUBQ SCH ×2 (09:00→21:00)
[2021-10-26] MEDS: Metoprolol 100 MG TABLET PO SCH ×2 (09:50→20:04)
[2021-10-26] MEDS: Aspirin Enteric Coated 81 MG Tablet PO SCH (09:50)
[2021-10-26] MEDS: Insulin LISPRO 300 UNITS/3 ML VIAL SUBQ SCH ×3 (09:50→17:48)
[2021-10-26] MEDS: Apixaban 5 MG TABLET PO SCH ×2 (09:50→20:04)
[2021-10-26] MEDS: Pregabalin 50 MG CAPSULE PO SCH ×2 (09:50→20:04)
[2021-10-26 10:34] LABS: Hematocrit 42.6 % (35.3-44.9); Hemoglobin 13.6 g/dL (11.5-15.4); Mean Corpuscular HGB Conc 31.9 g/dL (31.6-35.5); Mean Corpuscular Hemoglobin 31.9 pg (28.0-33.3); Mean Corpuscular Volume 99.8 fL (83.0-100.0); Mean Platelet Volume 10.7 fL (9.4-12.4); Platelet Count 203 K/mcL (140-400); Red Blood Count 4.27 M/mcL (3.82-4.97); Red Cell Distribution Width 13.4 % (11.5-14.5); White Blood Count 6.9 K/mcL (4.3-11.1)
[2021-10-26 10:54] LABS: Albumin 3.8 g/dL (3.5-5.7); BUN/Creatinine Ratio 15 (6-26); Blood Urea Nitrogen 28 mg/dL (8-23); Calcium 9.1 mg/dL (8.6-10.3); Carbon Dioxide 23 mEq/L (23-29); Chloride 105 mEq/L (98-107); Glucose 437 mg/dL (70-105); Magnesium 1.8 mg/dL (1.6-2.6); Osmolality,Calculated 316 (280-300); Phosphorous 3.4 mg/dL (2.7-4.5); Potassium 3.7 mEq/L (3.5-5.1); Sodium 141 mEq/L (136-145); Troponin I < 0.03 ng/mL (< 0.04); eGFR For African Americans 32 (> 60); eGFR For Non-African Americans 27 (> 60)
[2021-10-26] MEDS: Budesonide/Formoterol 80/4.5 1 PUFF INH IH SCH ×2 (11:13→20:53)
[2021-10-26 11:31] LABS: Estimated Average Glucose 275 mg/dl; Hemoglobin A1C 11.2 %
[2021-10-26] MEDS: Furosemide 20 MG/2 ML VIAL IVP SCH (20:04)
[2021-10-27] MEDS: Ipratropium/Albuterol Neb 3 ML IH SCH ×4 (04:22→21:37)
[2021-10-27] MEDS: Insulin LISPRO 300 UNITS/3 ML VIAL SUBQ SCH ×3 (08:23→16:04)
[2021-10-27] MEDS: Furosemide 20 MG/2 ML VIAL IVP SCH ×2 (08:24→21:24)
[2021-10-27] MEDS: Metoprolol 100 MG TABLET PO SCH ×2 (08:24→21:25)
[2021-10-27] MEDS: Pregabalin 50 MG CAPSULE PO SCH ×2 (08:24→21:26)
[2021-10-27] MEDS: Aspirin Enteric Coated 81 MG Tablet PO SCH (08:24)
[2021-10-27] MEDS: Apixaban 5 MG TABLET PO SCH ×2 (08:24→21:24)
[2021-10-27] MEDS: Insulin DETEMIR 100 UNIT/ML X5UNITS SUBQ SCH ×2 (09:14→21:25)
[2021-10-27] MEDS: *HR* HYDROcodone/Acet 5/325 mg TABLET PO PRN ×2 (09:19→16:05)
[2021-10-27] MEDS: Budesonide/Formoterol 80/4.5 1 PUFF INH IH SCH ×2 (10:42→21:38)
[2021-10-27 19:24] LABS: Calcium 8.8 mg/dL (8.6-10.3); Potassium 3.7 mEq/L (3.5-5.1)
[2021-10-28] MEDS: Ipratropium/Albuterol Neb 3 ML IH SCH ×4 (03:55→20:08)
[2021-10-28] MEDS: *HR* LORazepam 1 MG TABLET PO PRN ×2 (04:05→20:18)
[2021-10-28] MEDS: *HR* HYDROcodone/Acet 5/325 mg TABLET PO PRN ×2 (04:08→17:48)
[2021-10-28] MEDS: Pregabalin 50 MG CAPSULE PO SCH ×2 (09:13→20:18)
[2021-10-28] MEDS: Aspirin Enteric Coated 81 MG Tablet PO SCH (09:14)
[2021-10-28] MEDS: Metoprolol 100 MG TABLET PO SCH ×2 (09:15→20:18)
[2021-10-28] MEDS: Furosemide 20 MG/2 ML VIAL IVP SCH ×2 (09:15→20:18)
[2021-10-28] MEDS: Apixaban 5 MG TABLET PO SCH ×2 (09:15→20:18)
[2021-10-28] MEDS: Insulin LISPRO 300 UNITS/3 ML VIAL SUBQ SCH ×3 (09:16→17:46)
[2021-10-28] MEDS: Insulin DETEMIR 100 UNIT/ML X5UNITS SUBQ SCH ×2 (10:45→20:54)
[2021-10-28] MEDS: Budesonide/Formoterol 80/4.5 1 PUFF INH IH SCH ×2 (10:57→20:08)
[2021-10-28 11:26] LABS: Calcium 9.1 mg/dL (8.6-10.3); Potassium 3.9 mEq/L (3.5-5.1)
[2021-10-28 22:53] VITALS: TEMP 97.5
[2021-10-29] MEDS: Ipratropium/Albuterol Neb 3 ML IH SCH ×3 (04:27→15:33)
[2021-10-29 07:55] VITALS: BP 134/82; PULSE 64
[2021-10-29] MEDS: Insulin LISPRO 300 UNITS/3 ML VIAL SUBQ SCH ×2 (08:08→13:07)
[2021-10-29] MEDS: Furosemide 20 MG/2 ML VIAL IVP SCH (08:09)
[2021-10-29] MEDS: Metoprolol 100 MG TABLET PO SCH (08:09)
[2021-10-29] MEDS: *HR* HYDROcodone/Acet 5/325 mg TABLET PO PRN (08:09)
[2021-10-29] MEDS: Apixaban 5 MG TABLET PO SCH (08:09)
[2021-10-29] MEDS: Pregabalin 50 MG CAPSULE PO SCH (08:09)
[2021-10-29] MEDS: Aspirin Enteric Coated 81 MG Tablet PO SCH (08:10)
[2021-10-29] MEDS: Insulin DETEMIR 100 UNIT/ML X5UNITS SUBQ SCH (08:17)
[2021-10-29] MEDS: Budesonide/Formoterol 80/4.5 1 PUFF INH IH SCH (09:49)
[2021-10-29 09:50] VITALS: O2SAT 96
== END 2021-10-29 15:40 | disposition home health service (06) | DRG 291 ==
LOC: SUATTDRO → 3BNU 03:24 → EMEROOARM 03:24 → SUATTDRO 07:37 → 3BNU 08:05
PROVIDERS: ADMIT Internal Medicine; ATTEND Hospitalist